=== PATIENT | male | born 1955 | race Caucasian/White ===

== ENCOUNTER 2020-04-17 12:57 | Outpatient (CLI) | payer MEDICARE, SELFPAY ==
[2020-04-17 13:41] LABS: Alanine Aminotransferase 19 U/L (4-50); Albumin Level 4.2 g/dL (3.5-5.1); Alkaline Phosphatase 86 U/L (38-126); Anion Gap 10 mmol/L (8-16); Aspartate Amino Transferase 31 U/L (17-59); Bilirubin,Total 0.6 mg/dL (0.2-1.3); Blood Urea Nitrogen 14 mg/dL (9-20); Calcium 8.7 mg/dL (8.4-10.2); Carbon Dioxide 28 mmol/L (22-30); Chloride 101 mmol/L (98-107); Cholesterol 157 mg/dL (0-200); Estimated Glomerular Filt Rate 51; Glucose 119 mg/dL (75-110); HDL Direct 57 mg/dL; Sodium 139 mmol/L (137-145); Triglycerides 230 mg/dL (<150)
[2020-04-17 13:52] LABS: LDL Cholesterol Direct 54 mg/dL
[2020-04-21 00:13] LABS: Vitamin D 1,25 (OH)2 Total 65 pg/mL (18-72); Vitamin D2 1,25 (OH)2 47 pg/mL; Vitamin D3 1,25 (OH)2 18 pg/mL
== END 2020-04-17 12:58 | disposition home or self-care (01) ==
LOC: ANHLAB 12:58
PROVIDERS: PCP Emergency Medicine; Visit Provider Emergency Medicine
DX: E55.9 Vitamin D deficiency, unspecified (principal); E78.5 Hyperlipidemia, unspecified
CPT/HCPCS: 36415; 80053; 80061; 82652

== ENCOUNTER 2020-11-01 10:49 | Outpatient (CLI) | payer MEDICARE, SELFPAY ==
[2020-11-01 11:45] LABS: Alanine Aminotransferase 16 U/L (4-50); Albumin Level 3.6 g/dL (3.5-5.1); Alkaline Phosphatase 70 U/L (38-126); Anion Gap 6 mmol/L (8-16); Aspartate Amino Transferase 41 U/L (17-59); Bilirubin,Total 0.3 mg/dL (0.2-1.3); Blood Urea Nitrogen 9 mg/dL (9-20); Carbon Dioxide 26 mmol/L (22-30); Chloride 108 mmol/L (98-107); Cholesterol 158 mg/dL (0-200); Estimated Glomerular Filt Rate 51; Glucose 100 mg/dL (75-110); HDL Direct 73 mg/dL; Potassium 3.8 mmol/L (3.4-5.0); Sodium 140 mmol/L (137-145); Triglycerides 199 mg/dL (<150)
[2020-11-01 11:56] LABS: LDL Cholesterol Direct 58 mg/dL
[2020-11-01 12:16] LABS: Prostate Specific Antigen 0.6 ng/mL (< OR = 4.0)
[2020-11-05 12:05] LABS: Vitamin D 1,25 (OH)2 Total 46 pg/mL (18-72); Vitamin D2 1,25 (OH)2 46 pg/mL; Vitamin D3 1,25 (OH)2 <8 pg/mL
== END 2020-11-01 10:50 | disposition home or self-care (01) ==
LOC: ANHLAB 10:52
PROVIDERS: PCP Emergency Medicine; Visit Provider Emergency Medicine
DX: Z12.5 Encounter for screening for malignant neoplasm of prostate (principal); E55.9 Vitamin D deficiency, unspecified; E78.5 Hyperlipidemia, unspecified
CPT/HCPCS: 36415; 80053; 80061; 82652; 84153; G0103

== ENCOUNTER 2020-12-11 17:50 | Emergency (ER) | payer MEDICARE, SELFPAY ==
[2020-12-11] VITALS (15 sets, daily range): BP systolic 104–147; BP diastolic 62–87; PULSE 87–114; RESP 12–27; TEMP 36.1–36.8; O2SAT 95–98
[2020-12-11] MEDS: LIDO 1%/EPINEPHRINE 1:100,000 20 ML VIAL (21:27)
--- NOTE | 2020-12-11 21:49 | ED.HEATRA ---
HPI - Head Injury General Chief complaint: Head Injury Stated complaint: FALL, HEAD INJURY Time Seen by Provider: 12/11/20 19:13 Source: patient Mode of arrival: ambulatory Limitations: no limitations History of Present Illness HPI Narrative: 65-year-old male Patient was walking home from his favorite tavern this evening and stumbled on some broken sidewalk, falling forward as a result He has some minor scrapes on his knees but mainly banged his left forehead on the concrete There was no loss of consciousness and he has no neck pain nor does he have any other neurologic symptoms, his vision is fine, and he was asymptomatic before falling There is very little swelling and no active bleeding right now Patient voices no other concerns Related Data Home Medications Medication Instructions Recorded Confirmed aspirin 81 mg chewable tablet 81 mg PO DAILY 05/13/19 atorvastatin 20 mg tablet 20 mg PO DAILY 05/13/19 Allergies Allergy/AdvReac Type Severity Reaction Status Date / Time prednisone Allergy Unknown Unknown Verified 12/11/20 18:22 Review of Systems Review of Systems: All systems reviewed & are unremarkable except as noted in HPI and below Constitutional: Constitutional: Reports no additional constitutional complaints, Denies chills, Denies fever(s) and Denies headache(s) Eyes: Eyes: Reports no additional eye complaints and Denies change in vision ENT: Denies headache(s) and Denies sore throat Cardiovascular: Cardiovascular: Denies chest pain and Denies dyspnea Respiratory: Respiratory: Denies cough and Denies dyspnea Gastrointestinal: Gastrointestinal: Denies diarrhea, Denies nausea and Denies vomiting Musculoskeletal: Musculoskeletal: Denies deformity, Denies arthralgias, Denies joint swelling and Denies numbness Integumentary/Breasts: Skin/Breast: Denies rash and Denies wounds Neurologic: Denies dizziness, Reports headache(s), Denies focal weakness, Denies numbness and Denies weakness Psychiatric: Psychiatric: Reports no additional psychiatric complaints Endocrine: Endocrine: Reports no additional endocrine complaints Hematologic/Lymphatic: Hematologic/Lymphatic: Reports no additional hematologic/lymphatic complaints Allergic/Immunologic: Allergic/Immunologic: Reports no additional allergic/immunologic complaints [facility] Past Medical History Medical History Cardiomyopathy due to hypertension, with heart failure Depression HLD (hyperlipidemia) Family History Family History Mother Hypertension, Onset Age: 69 Father Family history of malignant neoplasm Social History Social History Smoking status: Former smoker Alcohol intake: current Gender identity (if verbalized by the patient): Male Exam Const: General: cooperative, no acute distress and alert Orientation/consciousness: patient oriented x3 (alert) HENMT: Head: normocephalic, atraumatic, contusion and laceration Ears: external ears normal General nose exam: Epistaxis present Face and sinus: sinuses nontender Other: There is a 3 cm laceration just into the subcu angling through the lateral part of the left eyebrow No other tenderness of any of the facial bones, no epistaxis, no malocclusion Eyes: Conjunctivae: conjunctivae normal Pupils: Equal, round and reactive pupils present EOM: EOMs intact bilaterally Neck: Neck: supple and no JVD Other: Nontender, no pain with range of motion Chest: Chest palpation & inspection: no tenderness Resp: Effort & Inspection: normal respiratory effort and not labored Auscultation: other (BS =) Cardio: Rate: regular rate Rhythm: regular rhythm GI: GI Palp: Yes Soft to palpation and No Tenderness to palpation present (GI) Back/Spine/Pelvis: Other: No thoracic or lumbar vertebral or paraspino
[2020-12-11] MEDS: TETANUS,DIPHTHERIA,AC PERTUSSIS ADULT (0.5 ML) BOOSTRIX IM (22:09)
== END 2020-12-11 22:38 | disposition home or self-care (01) ==
PROVIDERS: Emergency Provider Emergency Medicine; PCP Emergency Medicine
DX: S01.112A Laceration without foreign body of left eyelid and periocular area, initial encounter (principal); W01.0XXA Fall on same level from slipping, tripping and stumbling without subsequent striking against object, initial encounter; Z23 Encounter for immunization; I11.0 Hypertensive heart disease with heart failure; I50.9 Heart failure, unspecified; F32.9 Major depressive disorder, single episode, unspecified; E78.5 Hyperlipidemia, unspecified
CPT/HCPCS: 12013; 90471; 90715; 99283

== ENCOUNTER 2021-06-06 12:58 | Outpatient (CLI) | payer MEDICARE, SELFPAY ==
[2021-06-06 13:34] LABS: Alanine Aminotransferase 16 U/L (4-50); Albumin Level 3.7 g/dL (3.5-5.1); Alkaline Phosphatase 57 U/L (38-126); Anion Gap 6 mmol/L (8-16); Aspartate Amino Transferase 28 U/L (17-59); Bilirubin,Total 0.4 mg/dL (0.2-1.3); Blood Urea Nitrogen 11 mg/dL (9-20); Calcium 8.7 mg/dL (8.4-10.2); Carbon Dioxide 30 mmol/L (22-30); Chloride 100 mmol/L (98-107); Cholesterol 149 mg/dL (0-200); Estimated Glomerular Filt Rate 56; Glucose 94 mg/dL (65-110); HDL Direct 56 mg/dL; Potassium 3.8 mmol/L (3.4-5.0); Sodium 136 mmol/L (137-145); Triglycerides 220 mg/dL (<150)
[2021-06-06 13:45] LABS: LDL Cholesterol Direct 53 mg/dL
== END 2021-06-06 12:59 | disposition home or self-care (01) ==
LOC: ANHLAB 13:02
PROVIDERS: PCP Emergency Medicine; Visit Provider Emergency Medicine
DX: E78.2 Mixed hyperlipidemia (principal)
CPT/HCPCS: 36415; 80053; 80061

== ENCOUNTER 2021-06-28 10:28 | Emergency (ER) | payer MEDICARE, SELFPAY ==
--- NOTE | ~2021-06-28 | CT_ITS ---
EXAMINATION: CT abdomen pelvis w con DATE: 06/28/2021 11:42 INDICATION: Abdominal pain. TECHNIQUE: Computed tomography (CT) of the abdomen and pelvis was performed with 100 mL Omnipaque 350 intravenous contrast. Automated exposure control and iterative reconstruction technique were employe d. The dose-length product was 357.68 mGy-cm. COMPARISON: CT abdomen and pelvis 12/06/2010 FINDINGS: The visualized portions of the lung bases demonstrate minimal atelectasis. No pleural effus ion. The heart size is normal. There are coronary artery calcifications. No pericardial effusion. The liver, spleen, gallbladder, pancreas, adrenal glands are normal. There is cortical thinning of the k idneys. There are multiple dilated loops of small bowel. There are surgical changes of distal bowel, likely an ileoanal anastomosis. A long area of distal small bowel is small in caliber and was small c aliber on the prior CT. The small bowel is dilated proximal to this area. There is wall thickening in volving a large distribution of the mid and distal small bowel. There is mild mesenteric lymphadenopa thy. There is no free intraperitoneal fluid. There are bilateral total hip arthroplasties. There is m ild thoracic and lumbar spondylosis. IMPRESSION: 1. Ileoanal anastomosis with stricture of the distal ileum, small bowel obstruction, and enteritis. 2. Mild mesenteric lymphadenopathy, likely reactive. Reviewed, dictated and finalized at location B. [employer]OR OF QUALITY IMPRESSION: 1. Ileoanal anastomosis with stricture of the distal ileum, small bowel obstruc tion, and enteritis. 2. Mild mesenteric lymphadenopathy, likely reactive.
[2021-06-28 10:34] VITALS: BP 141/85; PULSE 74; RESP 18; TEMP 36.7; O2SAT 98
[2021-06-28 11:05] LABS: Basophils Percent Auto 0.4 % (0.2-1.2); Eosinophils Absolute Auto 0.1 K/mm3 (0-0.3); Eosinophils Percent Auto 1.6 % (0-4.4); Hematocrit 37.7 % (42.0-52.0); Hemoglobin 12.7 g/dL (14.0-18.0); Immature Granulocyte Absolute 0.01 K/mm3 (0.00-0.031); Immature Granulocyte Percent A 0.2 % (0-0.5); Lymphocytes Absolute Auto 0.75 K/mm3 (0.9-3.2); Lymphocytes Percent Auto 16.7 % (18.3-44.2); Mean Corpuscular HGB Conc 33.7 g/dl (32-36); Mean Corpuscular Hemoglobin 32.5 pg (26-34); Mean Corpuscular Volume 96.4 fl (80-100); Mean Platelet Volume 9.1 fl (7.4-10.4); Monocytes Absolute Auto 0.4 K/mm3 (0.1-0.6); Monocytes Percent Auto 9.4 % (2.6-8.5); Neutrophils Absolute Auto 3.2 K/mm3 (1.3-6.7); Neutrophils Percent Auto 71.7 % (45.5-73.1); Platelet Count Result 252 k/mm3 (150-375); Red Blood Count 3.91 M/mm3 (4.6-6.20); Red Cell Distribution Width 12.8 % (11.5-14.5); White Blood Count 4.5 K/mm3 (4.5-10.0)
[2021-06-28 11:16] LABS: Alanine Aminotransferase 13 U/L (4-50); Albumin Level 3.6 g/dL (3.5-5.1); Alkaline Phosphatase 82 U/L (38-126); Anion Gap 8 mmol/L (8-16); Aspartate Amino Transferase 25 U/L (17-59); Bilirubin,Total 0.7 mg/dL (0.2-1.3); Blood Urea Nitrogen 13 mg/dL (9-20); Carbon Dioxide 33 mmol/L (22-30); Chloride 94 mmol/L (98-107); Estimated CRCL calculation 50 ml/min; Estimated Glomerular Filt Rate > 60; Glucose 110 mg/dL (65-110); Lipase 25 U/L (23-300); Potassium 3.5 mmol/L (3.4-5.0); Sodium 135 mmol/L (137-145)
[2021-06-28 11:57] LABS: Add Urine Microscopic? YES; Appearance Urine Clear (Clear); Bilirubin Urine Negative (Negative); Blood Urine Negative (Negative); Color Urine Yellow (Yellow); Glucose Urine UA Negative (Negative); Ketones Urine Negative (Negative); Leukocyte Esterase Ur Negative LEU/UL (Negative); Mucus Urine Rare /lpf; Nitrate Urine Negative (Negative); Protein Urine Negative (Negative); RBC Urine 0-2 /hpf (0-2); Specific Grav Ur 1.019 (1.001-1.035); WBC Urine 0-3 /hpf
--- NOTE | 2021-06-28 12:13 | ED.GENADULT ---
HPI - General Adult General Chief complaint: Abdominal Pain Stated complaint: abd pain Time Seen by Provider: 06/28/21 10:52 Source: patient Mode of arrival: ambulatory Limitations: no limitations History of Present Illness HPI narrative: Patient is a 65-year-old male with history of bowel resection due to ulcerative colitis in 2001 presents with chief complaint of lower abdominal pain that has persistently worsened since June 21. Patient reports that in 2001 the ileostomy was closed from his colon was reattached and had anastomosis. He reports that the procedure was performed by Dr. Reid colorectal surgeon and [facility]. He states that he has not seen a surgeon or GI specialist in 10+ years as he has not had any complications and Dr. Meyer retired. He reports that he has not had issues with his ulcerative colitis since that time. He reports that he saw his primary care 2 to 3 weeks ago and discussed the fact that he has pain to the area of his ileostomy site on occasion and they thought that perhaps he had a hernia. Patient reports that last the pain became more persistent and more intense so he called his primary care to father's office was called and his primary care is on vacation. Patient states that he does not actively have a GI specialist. Patient denies vomiting or diarrhea. He reports that he feels some bloating and gassiness but has not been passing a lot of gas which is abnormal for him. Patient denies fever, chills,Chest pain, shortness of breath. Related Data Home Medications Medication Instructions Recorded Confirmed aspirin 81 mg chewable tablet 81 mg PO DAILY 05/13/19 06/12/21 atorvastatin 20 mg tablet 20 mg PO DAILY 05/13/19 06/12/21 Allergies Allergy/AdvReac Type Severity Reaction Status Date / Time prednisone Allergy Unknown Unknown Verified 06/28/21 10:49 Review of Systems Review of Systems: CONSTITUTIONAL: Denies fever, chills, or sweats. EYES: Denies visual changes, redness, or discharge. ENT: Denies rhinorrhea, congestion, sore throat, or otalgia. CARDIOVASCULAR: Denies chest pain, palpitations, or edema. RESPIRATORY: Denies cough or dyspnea. GASTROINTESTINAL: Reports intermittent abdominal pain, denies nausea, vomiting, or diarrhea. GENITOURINARY: Denies dysuria or hematuria. SKIN: Denies rash or itching. MUSCULOSKELETAL: Denies back pain, joint pain, or myalgia. NEUROLOGIC: Denies headache, numbness, dizziness, or weakness. PSYCHIATRIC: Denies anxiety or depression. [facility] Past Medical History Medical History (Updated 06/28/21 @ 15:21 by Monika Castillo PA-C) Cardiomyopathy due to hypertension, with heart failure Depression HLD (hyperlipidemia) Family History Family History Mother Hypertension, Onset Age: 69 Father Family history of malignant neoplasm Social History Social History Social History: Patient drinks caffeine weekly and exercises 3 days per week. Smoking status: Never smoker Second hand tobacco smoke exposure: No Alcohol intake: current Alcohol use details: Patient drinks alcohol weekly. Substance use: never Substance use type: does not use Additional living arrangements comments: Gender identity (if verbalized by the patient): Male Sexual Orientation (if Verbalized by the Patient): Straight or Heterosexual Exam Narrative: GENERAL: Well-appearing, well-nourished, and in no acute distress. HEAD: Normocephalic, atraumatic. EYES: PERRLA and EOMI. CHEST: Clear to auscultation. No respiratory distress. No wheezes rales or rhonchi HEART: Regular rate and rhythm. ABDOMEN: Vertical abdominal scar to central abdomen. Abdominal scarring to right lower quadrant. soft, tender to right lower quadrant, distention not appreciated, hyperactive bubbling bowel sounds more active in lower quadrants. EXTR
[2021-06-28 13:00] VITALS: BP 141/88; PULSE 86; RESP 16; O2SAT 97
--- NOTE | 2021-06-28 15:22 | PM.CNGS ---
Assessment and Plan Assessment and plan (1) Small bowel anastomotic stricture: Code(s): K91.89 - Other postprocedural complications and disorders of digestive system; K91.30 - Postprocedural intestinal obstruction, unspecified as to partial versus complete Status: Acute Assessment and Plan: CT reviewed, exam benign, still c bowel fxn, will need further workup and tx c CRS at [facility], likely needs endoscopy and poss dilation, pt is stable and can be discharged to f/u as outpt History of Present Illness Consult details Consult date: 06/28/21 Reason for consult: abdominal pain Requesting physician: Ced Ward MD Narrative: The patient is a 65-year-old male presenting with crampy abdominal pain, decreased bowel function. The patient reports he had a subtotal colectomy with ileal anal anastomosis for ulcerative colitis in 2001. Patient reports that he has been generally doing well since surgery. The patient reports for the last few weeks he has had increasing crampy abdominal pain, as well as decreased bowel function. The patient reports that his appetite has also been decreased. The patient denies any nausea or vomiting. Review of Systems Constitutional: Constitutional: Denies anorexia, Denies chills, Denies fatigue, Denies fever(s), Denies increased appetite, Denies lethargy, Denies malaise, Reports poor appetite, Denies weakness, Denies weight gain and Denies weight loss Eyes: Eyes: Reports no additional eye complaints ENT: Reports system reviewed and no additional complaints, except as documented Cardiovascular: Cardiovascular: Reports no additional cardiovascular complaints Respiratory: Respiratory: Reports no additional respiratory complaints Gastrointestinal: Gastrointestinal: Reports as per HPI, Reports abdominal pain, Denies belching, Reports bloating, Reports change in bowel habits, Reports change in stool character, Reports GI cramping, Reports early satiety, Denies dyspepsia, Denies heartburn, Denies fecal incontinence, Denies diarrhea, Reports loose stools, Denies nausea and Denies vomiting Genitourinary: Genitourinary: Reports no additional male genitourinary complaints Musculoskeletal: Musculoskeletal: Reports no additional musculoskeletal complaints Integumentary/Breasts: Skin/Breast: Reports system reviewed and no additional complaints, except as docu Neurologic: Reports system reviewed and no additional complaints, except as documented Psychiatric: Psychiatric: Reports no additional psychiatric complaints Endocrine: Endocrine: Reports no additional endocrine complaints Hematologic/Lymphatic: Hematologic/Lymphatic: Reports no additional hematologic/lymphatic complaints Allergic/Immunologic: Allergic/Immunologic: Reports no additional allergic/immunologic complaints [facility] Past Medical History Medical History Cardiomyopathy due to hypertension, with heart failure Depression HLD (hyperlipidemia) Family History Family History Mother Hypertension, Onset Age: 69 Father Family history of malignant neoplasm Social History Social History Social History: Patient drinks caffeine weekly and exercises 3 days per week. Smoking status: Never smoker Second hand tobacco smoke exposure: No Alcohol intake: current Alcohol use details: Patient drinks alcohol weekly. Substance use: never Substance use type: does not use Additional living arrangements comments: Gender identity (if verbalized by the patient): Male Sexual Orientation (if Verbalized by the Patient): Straight or Heterosexual Comments surgical history - Subtotal colectomy with ileal anal anastomosis in 2001 Meds Home Medications and Allergies Home Medications Medication Instructions Recorded Confirmed Type aspirin
[2021-06-28 15:48] VITALS: BP 128/86; PULSE 80; RESP 14; O2SAT 98
== END 2021-06-28 16:05 | disposition home or self-care (01) ==
PROVIDERS: Emergency Provider Family Medicine; PCP Emergency Medicine
DX: K91.858 Other complications of intestinal pouch (principal); K62.4 Stenosis of anus and rectum; I11.0 Hypertensive heart disease with heart failure; I50.9 Heart failure, unspecified; I43 Cardiomyopathy in diseases classified elsewhere; E78.5 Hyperlipidemia, unspecified; Z90.49 Acquired absence of other specified parts of digestive tract; Z79.82 Long term (current) use of aspirin
CPT/HCPCS: 36415; 74177; 80053; 81001; 83690; 85025; 99284; Q9967

== ENCOUNTER 2021-12-14 10:40 | Outpatient (CLI) | payer MEDICARE, SELFPAY ==
[2021-12-14 11:17] LABS: Alanine Aminotransferase 19 U/L (6-50); Albumin Level 3.3 g/dL (3.5-5.1); Alkaline Phosphatase 45 U/L (38-126); Anion Gap 3 mmol/L (8-16); Aspartate Amino Transferase 28 U/L (17-59); Bilirubin,Total 0.2 mg/dL (0.2-1.3); Blood Urea Nitrogen 10 mg/dL (9-20); Calcium 8.2 mg/dL (8.4-10.2); Carbon Dioxide 31 mmol/L (22-30); Chloride 107 mmol/L (98-107); Cholesterol 92 mg/dL (0-200); Estimated Glomerular Filt Rate > 60; Glucose 99 mg/dL (65-110); HDL Direct 42 mg/dL; Potassium 3.5 mmol/L (3.4-5.0); Sodium 141 mmol/L (137-145); Triglycerides 88 mg/dL (<150)
[2021-12-14 11:27] LABS: LDL Cholesterol Direct 33 mg/dL
== END 2021-12-14 10:41 | disposition home or self-care (01) ==
LOC: ANHLAB 10:45
PROVIDERS: PCP Emergency Medicine; Visit Provider Emergency Medicine
DX: I11.0 Hypertensive heart disease with heart failure (principal); E78.2 Mixed hyperlipidemia; I43 Cardiomyopathy in diseases classified elsewhere
CPT/HCPCS: 36415; 80053; 80061

== ENCOUNTER 2022-03-21 10:39 | Outpatient (CLI) | payer MEDICARE, SELFPAY ==
[2022-03-21 12:02] LABS: Alanine Aminotransferase 15 U/L (6-50); Albumin Level 3.6 g/dL (3.5-5.1); Alkaline Phosphatase 57 U/L (38-126); Anion Gap 8 mmol/L (8-16); Aspartate Amino Transferase 24 U/L (17-59); Bilirubin,Total 0.6 mg/dL (0.2-1.3); Blood Urea Nitrogen 15 mg/dL (9-20); Calcium 8.9 mg/dL (8.4-10.2); Carbon Dioxide 27 mmol/L (22-30); Chloride 104 mmol/L (98-107); Cholesterol 140 mg/dL (0-200); Estimated Glomerular Filt Rate 55; Glucose 104 mg/dL (65-110); HDL Direct 73 mg/dL; Potassium 4.2 mmol/L (3.4-5.0); Sodium 139 mmol/L (137-145); Triglycerides 75 mg/dL (<150)
[2022-03-21 12:14] LABS: LDL Cholesterol Direct 52 mg/dL
[2022-03-21 12:33] LABS: Prostate Specific Antigen 0.4 ng/mL (< OR = 4.0)
== END 2022-03-21 10:40 | disposition home or self-care (01) ==
PROVIDERS: PCP Emergency Medicine; Visit Provider Emergency Medicine
DX: E78.5 Hyperlipidemia, unspecified (principal); Z12.5 Encounter for screening for malignant neoplasm of prostate
CPT/HCPCS: 36415; 80053; 80061; 84153; G0103

== ENCOUNTER 2022-08-21 16:30 | Emergency (ER) | payer MEDICARE, SELFPAY ==
--- NOTE | ~2022-08-21 | XR_ITS ---
EXAMINATION: XR chest 1V portable Exam Date/Time: 08/21/2022 17:35 ICT CUSTOMER SUPPORT OFFICER HISTORY: PICC PLACEMENT VERIFICATION - OK TO USE PICC LINE Comparison: 05/29/2017. RESULT: Lines, tubes, and devices: Right upper extremity PICC, terminating in the distal SVC near the cavoat rial junction. Lungs and pleura: Clear. Cardiomediastinal silhouette: Stable. Other: No acute osseous or upper abdominal finding. IMPRESSION: Right upper extremity PICC, in good position. Reviewed, dictated and finalized at location K. CUSTOMER SUPPORT OFFICER
[2022-08-21 16:39] VITALS: BP 142/84; PULSE 67; RESP 16; TEMP 36.9; O2SAT 98
--- NOTE | 2022-08-21 16:56 | ED.RECABL ---
HPI - Recheck/Abnormal Lab/Rx General Chief Complaint: Recheck/Abnormal Lab/Rx Stated Complaint: low hgb Time Seen by Provider: 08/21/22 16:56 Source: patient Mode of arrival: ambulatory Limitations: no limitations History of Present Illness HPI narrative: Patient is a 66-year-old male with a history of cardiomyopathy, HTN, Crohn's disease, recent colon resection and ileostomy at [facility] in June 2022, presenting to the emergency department for evaluation of low hemoglobin found on laboratory testing at [facility] today. Patient reportedly presented to the infusion center at [facility] to receive his Remicade infusion. He had lab work drawn at the beginning of the infusion that did not result until after he had been discharged which resulted in a low hemoglobin of 6.3. Patient and family were contacted over the phone and told to present to the nearest outside facility for blood transfusion. Patient denies any current complaints. He denies any lightheadedness, dizziness, palpitations, shortness of breath. No syncopal events. He denies any dark or tarry stool from the ileostomy. He is not on any chronic anticoagulation. He denies fever, chills, abdominal pain. Patient's GI physician at [facility] Dr. Daniel Lewis. Related Data Home Medications Medication Instructions Recorded Confirmed aspirin 81 mg chewable tablet 81 mg PO DAILY 05/13/19 06/12/21 atorvastatin 20 mg tablet 20 mg PO DAILY 05/13/19 06/12/21 sulfasalazine 500 mg 0.5 g PO BID 12/25/21 tablet,delayed release Allergies Allergy/AdvReac Type Severity Reaction Status Date / Time prednisone Allergy Unknown Unknown Verified 08/21/22 17:56 Review of Systems Review of Systems: CONSTITUTIONAL: Denies fever, chills, or sweats. ENT: Denies rhinorrhea, congestion, sore throat, or otalgia. CARDIOVASCULAR: Denies chest pain, palpitations, or edema. RESPIRATORY: Denies cough or dyspnea. GASTROINTESTINAL: Denies abdominal pain, nausea, vomiting, or diarrhea. GENITOURINARY: Denies dysuria or hematuria. SKIN: Denies rash or itching. MUSCULOSKELETAL: Denies back pain, joint pain, or myalgia. NEUROLOGIC: Denies headache, numbness, or weakness. [facility] Past Medical History Medical History Cardiomyopathy due to hypertension, with heart failure Depression HLD (hyperlipidemia) Family History Family History Mother Hypertension, Onset Age: 69 Father Family history of malignant neoplasm Social History Social History Social History: Patient drinks caffeine weekly and exercises 3 days per week. Smoking status: Never smoker Second hand tobacco smoke exposure: No Alcohol intake: current Alcohol use details: Patient drinks alcohol weekly. Substance use: never Substance use type: does not use Living arrangements: with family Additional living arrangements comments: Occupation/Education: retired Gender identity (if verbalized by the patient): Male Sexual Orientation (if Verbalized by the Patient): Straight or Heterosexual Exam Narrative: GENERAL: Awake, alert, conversant HEAD: Normocephalic, atraumatic. EYES: PERRLA and EOMI. ENT: Nares clear, no rhinorrhea or epistaxis. Mucous membranes moist. NECK: Supple. CHEST: No respiratory distress, breathing even and non labored HEART: Regular rate, sinus rhythm ABDOMEN:Non distended, non tender; surgical scars are well-healed. Ileostomy in place, stool present. EXTREMITIES: Normal range of motion. No edema. SKIN: Warm, dry, no rash. NEURO:No focal deficits. Alert and oriented x3 Course Vital Signs Vital signs: Vital Signs Temperature 36.9 C 08/21/22 16:39 Pulse Rate 67 08/21/22 16:39 Respiratory Rate 16 08/21/22 16:39 Blood Pressure 142/
[2022-08-21 18:27] LABS: Basophils Percent Auto 0.2 % (0.2-1.2); Eosinophils Absolute Auto 0.1 K/mm3 (0-0.3); Eosinophils Percent Auto 2.7 % (0-4.4); Hematocrit 28.7 % (42.0-52.0); Hemoglobin 9.3 g/dL (14.0-18.0); Immature Granulocyte Absolute 0.03 K/mm3 (0.00-0.031); Immature Granulocyte Percent A 0.7 % (0-0.5); Lymphocytes Absolute Auto 0.86 K/mm3 (0.9-3.2); Lymphocytes Percent Auto 20.8 % (18.3-44.2); Mean Corpuscular HGB Conc 32.4 g/dl (32-36); Mean Corpuscular Hemoglobin 33.6 pg (26-34); Mean Corpuscular Volume 103.6 fl (80-100); Mean Platelet Volume 10.9 fl (7.4-10.4); Monocytes Absolute Auto 0.5 K/mm3 (0.1-0.6); Monocytes Percent Auto 11.4 % (2.6-8.5); Neutrophils Absolute Auto 2.7 K/mm3 (1.3-6.7); Neutrophils Percent Auto 64.2 % (45.5-73.1); Platelet Count Result 156 k/mm3 (150-375); Red Blood Count 2.77 M/mm3 (4.6-6.20); Red Cell Distribution Width 15.4 % (11.5-14.5); White Blood Count 4.1 K/mm3 (4.5-10.0)
[2022-08-21 18:31] LABS: Immature Reticulocyte Fraction 17.9 % (3.0-15.9); Reticulocyte Hemoglobin Conten 37.2 pg (28.2-35.7); Reticulocyte Percent 3.66 % (0.7-4.3)
[2022-08-21 18:36] LABS: Anion Gap 7 mmol/L (8-16); Blood Urea Nitrogen 30 mg/dL (9-20); Calcium 8.9 mg/dL (8.4-10.2); Carbon Dioxide 19 mmol/L (22-30); Chloride 108 mmol/L (98-107); Estimated CRCL calculation 44 ml/min; Estimated Glomerular Filt Rate 51; Glucose 87 mg/dL (65-110); Sodium 134 mmol/L (137-145)
[2022-08-21] MEDS: HEPARIN SODIUM LOCK FLUSH 500 UNITS/5 ML VIAL (18:39)
[2022-08-21 18:40] LABS: Lactate Dehydrogenase 215 U/L (120-246)
[2022-08-21 18:57] LABS: Iron 124 ug/dL (49-181)
[2022-08-21 19:10] VITALS: BP 138/82; PULSE 72; RESP 18; O2SAT 99
[2022-08-21 19:11] LABS: Percent Iron Saturation 38 % (20-50)
[2022-08-27 15:05] LABS: Haptoglobin 188 mg/dL (43-212)
== END 2022-08-21 19:10 | disposition home or self-care (01) ==
PROVIDERS: Physician Assistant; Emergency Provider Emergency Medicine; PCP Emergency Medicine
DX: D64.9 Anemia, unspecified (principal); F32.9 Major depressive disorder, single episode, unspecified; E78.5 Hyperlipidemia, unspecified; I11.0 Hypertensive heart disease with heart failure; I50.9 Heart failure, unspecified; K50.90 Crohn's disease, unspecified, without complications
CPT/HCPCS: 36415; 71045; 80048; 83010; 83540; 83550; 83615; 85025; 85046; 86850; 86900; 86901; 99283; J1642

== ENCOUNTER 2023-11-03 11:35 | Outpatient (CLI) | payer MEDICARE, SELFPAY ==
[2023-11-03 12:37] LABS: Alanine Aminotransferase 11 U/L (6-50); Alkaline Phosphatase 67 U/L (38-126); Anion Gap 6 mmol/L (4-12); Aspartate Amino Transferase 37 U/L (17-59); Bilirubin,Total 0.7 mg/dL (0.2-1.3); Blood Urea Nitrogen 14 mg/dL (9-20); Calcium 9.2 mg/dL (8.4-10.2); Carbon Dioxide 23 mmol/L (22-30); Chloride 108 mmol/L (98-107); Cholesterol 134 mg/dL (0-200); Estimated Glomerular Filt Rate 43; Glucose 108 mg/dL (65-110); HDL Direct 56 mg/dL; Potassium 4.3 mmol/L (3.4-5.0); Sodium 137 mmol/L (137-145); Triglycerides 135 mg/dL (<150)
[2023-11-03 12:48] LABS: LDL Cholesterol Direct 59 mg/dL
[2023-11-03 13:49] LABS: Vitamin D 25 Hydroxy 38.2 ng/mL
== END 2023-11-03 11:36 | disposition home or self-care (01) ==
LOC: ANHLAB 11:37
PROVIDERS: PCP Emergency Medicine; Visit Provider Emergency Medicine
DX: E78.5 Hyperlipidemia, unspecified (principal); E55.9 Vitamin D deficiency, unspecified
CPT/HCPCS: 36415; 80053; 80061; 82306

== ENCOUNTER 2024-03-17 11:03 | Outpatient (CLI) | payer MEDICARE, SELFPAY ==
--- NOTE | ~2024-03-17 | US_ITS ---
EXAMINATION: US renal BI DATE: 03/17/2024 11:17 INDICATION: Chronic kidney disease, stage IIIa. TECHNIQUE: Multiple ultrasound grayscale images of the kidneys were obtained. COMPARISON: CT abdomen and pelvis 06/28/2021 FINDINGS: The right kidney measures 9.7 x 5.0 x 5.2 cm. The left kidney measures 10.7 x 4.7 x 4.6 cm. The kidne ys demonstrate normal parenchymal echogenicity. There is cortical thinning of the kidneys. There is n o hydronephrosis. The bladder is normal. IMPRESSION: 1. Cortical thinning of the kidneys. No hydronephrosis. Reviewed, dictated and finalized at location A.
== END 2024-03-17 11:04 | disposition home or self-care (01) ==
LOC: MICIMG 11:04
PROVIDERS: PCP Emergency Medicine; Visit Provider Internal Medicine Nephrology
DX: N18.31 Chronic kidney disease, stage 3a (principal)
CPT/HCPCS: 76775

== ENCOUNTER 2024-09-09 21:00 | Emergency (ER) | payer MEDICARE, SELFPAY ==
--- NOTE | ~2024-09-09 | CT_ITS ---
CT brain wo con Ordering provider: Shaji Shook MD History: 68 years Male with . Fall etoh . Comparison: December 07, 2010 Technique: CT of the head without contrast. Radiation reduction technique utilized. The dose-length product was 756.67 mGy-cm. FINDINGS: BRAIN PARENCHYMA AND CSF SPACES: Mild leukoaraiosis and diffuse cortical atrophy. Mild atheromatous d isease. Hypodensity in the left frontal lobe which may indicate subacute/chronic infarct. MRI evaluat ion advised. Old lacunar infarct in the right thalamus. No midline shift, mass effect or hemorrhage. The brain parenchyma and CSF spaces are otherwise normal. VISUALIZED PARANASAL SINUSES: Right maxillary sinus disease otherwise, Well aerated. MASTOIDS: Well aerated. BONES: The bones appear intact. SOFT TISSUES: Visualized nasopharynx is normal. Superficial soft tissues are normal. IMPRESSION: No acute intracranial findings. Reviewed, dictated and finalized at location A.
--- NOTE | ~2024-09-09 | CT_ITS ---
CT cervical spine wo con Ordering provider: Shaji Shook MD History: . Fall etoh . Comparison: None. Technique: CT of the cervical spine was performed without contrast. Sagittal and coronal reformatted images were also obtained and reviewed. Automated exposure control and iterative reconstruction rossy hnique were employed. The dose-length product was 335.82 mGy-cm. FINDINGS: VERTEBRAE: No subluxation or acute fracture. The occipital condyles are intact. DISC SPACES: Narrowing of the disc C4-C5, C5-C6 and C6-C7. Multilevel facet joint disease. Multilevel uncovertebral joint osteoarthritic changes. Narrowing of the left foramina at the level of C3-C4 and C4-C5. Narrowing of the right foramen at the level of C5-C6 and C6-C7 PARASPINOUS SOFT TISSUES: Normal. Carotid atherosclerotic changes. IMPRESSION: No acute osseous abnormality cervical spine. Multilevel degenerative disc disease. Reviewed, dictated and finalized at location A.
--- NOTE | ~2024-09-09 | XR_ITS ---
XR chest 1V Ordering provider: Shaji Shook MD History: 68 years Male with . Syncope . Comparison: August 21, 2022 FINDINGS: MEDIASTINUM: The cardiac silhouette is not enlarged. LUNGS: No infiltrates, effusions or pneumothorax. OTHER: No free air under the diaphragm. Degenerative changes of the spine. IMPRESSION: No acute cardiopulmonary pathology. Reviewed, dictated and finalized at location A.
[2024-09-09 21:18] VITALS: BP 115/65; PULSE 66; RESP 17; TEMP 36.7; O2SAT 100
[2024-09-09 21:29] VITALS: O2SAT 98
[2024-09-09 21:54] VITALS: PULSE 61; RESP 15
--- NOTE | 2024-09-09 22:02 | ECG_ITS ---
Test Date: 2024-09-09 22:40:14 Measurements Intervals [place] Rate: 58 P: 64 HI: 217 QRS: -40 QRSD: 90 T: 44 QT: 396 QTc: 391 Interpretive Statements SINUS BRADYCARDIA WITH FIRST DEGREE AV BLOCK INFERIOR MYOCARDIAL INFARCTION , PROBABLY OLD [40+ ms Q WAVE AND/OR ST/T ABNORMALITY IN II/aVF] No previous ECG available for comparison Electronically Signed On 09-10-2024 16:51:56 CDT by Phu Rajan M.D.
[2024-09-09 22:08] VITALS: BP 93/59; RESP 14; O2SAT 99
[2024-09-09 22:12] LABS: Basophils Percent Auto 0.7 % (0.2-1.2); Eosinophils Absolute Auto 0.1 K/mm3 (0-0.3); Hematocrit 30.4 % (42.0-52.0); Hemoglobin 10.4 g/dL (14.0-18.0); Immature Granulocyte Absolute 0.21 K/mm3 (0.00-0.031); Immature Granulocyte Percent A 4.6 % (0-0.5); Lymphocytes Absolute Auto 0.79 K/mm3 (0.9-3.2); Lymphocytes Percent Auto 17.2 % (18.3-44.2); Mean Corpuscular HGB Conc 34.2 g/dl (32-36); Mean Corpuscular Hemoglobin 35.6 pg (26-34); Mean Corpuscular Volume 104.1 fl (80-100); Mean Platelet Volume 9.7 fl (7.4-10.4); Monocytes Absolute Auto 0.5 K/mm3 (0.1-0.6); Monocytes Percent Auto 9.8 % (2.6-8.5); Neutrophils Percent Auto 64.7 % (45.5-73.1); Platelet Count Result 239 k/mm3 (150-375); Red Blood Count 2.92 M/mm3 (4.6-6.20); Red Cell Distribution Width 13.4 % (11.5-14.5); White Blood Count 4.6 K/mm3 (4.5-10.0)
[2024-09-09 22:20] LABS: Ethanol 292 mg/dL (<10)
[2024-09-09 22:22] LABS: Alanine Aminotransferase 19 U/L (6-50); Albumin Level 4.1 g/dL (3.5-5.1); Alkaline Phosphatase 54 U/L (38-126); Anion Gap 15 mmol/L (4-12); Aspartate Amino Transferase 35 U/L (17-59); Bilirubin,Total 0.6 mg/dL (0.2-1.3); Blood Urea Nitrogen 13 mg/dL (9-20); Calcium 8.7 mg/dL (8.4-10.2); Carbon Dioxide 19 mmol/L (22-30); Chloride 104 mmol/L (98-107); Estimated CRCL calculation 45 ml/min; Estimated Glomerular Filt Rate 54; Glucose 83 mg/dL (65-110); Potassium 4.1 mmol/L (3.4-5.0); Sodium 138 mmol/L (137-145)
[2024-09-09 22:33] LABS: Troponin I < 0.012 ng/mL (0.000-0.034)
--- OUTSIDE RECORDS SUMMARY | 2024-09-09 22:49 | XMS_ITS | Encounter Summary ---
Author Organization [facility] Address [address] [place] [address] Phone Care Team Providers Care Front End Mechanic Name Role Phone Nguyễn Sampson MD Primary Care Provide r Fan Lowery MD Unavailable [phone] Chandan Warren MD Unavailable [phone] Encounter Details Date Type Department Care Team (Late st Contact Info) Description 11/03/2023 Orders Only [facility] Scanning, Provider Social History Tobacco Use Types Packs/Day Years Used Date Smoking Tobacco: Never Smokeless Tobacco: Never Alcohol Use Standard Drinks/Week Comments Yes 0 (1 standard drink = 0.6 oz pur e alcohol) Social Connection and Isolat ion Panel [NHANES] Answer Date Recorded In a typical week, how many times do you talk on the phone with family, friends, or neighbors? More than three times a week 10/08/2022 How often do you get togethe r with friends or relatives? More than three times a week 10/08/2022 How often do you attend chur ch or shinto services? Never 10/08/2022 Do you belong to any clubs o r organizations such as caodaism groups, unions, fraternal or athletic groups, or school groups? No 10/08/2022 How often do you attend meet ings of the clubs or organizations you belong to? Never 10/08/2022 Are you , , di vorced, , never , or living with a partner? 10/08/2022 AUDIT-C Answer Date Recorded Q1: How often do you have a drink containing alc ohol? 2-3 times a week 06/05/2023 Q2: How many drinks containi ng alcohol do you have on a typical day when you are drinking? 3 or 4 06/05/2023 Q3: How often do you have si x or more drinks on one occasion? Less than monthly 06/05/2023 Overall Financial Resource Strain (CARDIA) Answe r Date Recorded How hard is it for you to pa y for the very basics like food, housing, medical care, and heating? Not hard at all 10/08/2022 PHQ-2 Answer Date Recorded PHQ-2 Total Score 1 07/04/2022 Hunger Vital Sign Answer Date Recorded Within the past 12 months, y ou worried that your food would run out before you got the money to buy more. Never true 10/09/19 23 Within the past 12 months, t he food you bought just didn't last and you didn't have money to get more. Never true 10/08/2022 PRAPARE - Transportation Answer Date Re corded In the past 12 months, has l ack of transportation kept you from medical appointments or from getting medications? No 09/28 In the past 12 months, has l ack of transportation kept you from meetings, work, or from getting things needed for daily living? No 10/08/2022 Housing Stability Vital Sign Answer Jonathan e Recorded In the last 12 months, was t here a time when you were not able to pay the mortgage or rent on time? No 10/08/2022 In the last 12 months, how many places have you lived? 1 10/08/2022 In the last 12 months, was t here a time when you did not have a steady place to sleep or slept in a prison (including now)? No 10/08/2022 Personal Safety Answer Date Recorded Have you ever been in or are you currently in a harmful physical or emotional relationship or is someone making you feel afraid or unsafe? 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 Gender Identity Not on file Sexual Orientation Not on file documented as of this encounter Plan of Treatment Not on file documented as of this encounter Procedures Procedure Name Priority Date/Time Associated Diagnosis Comments SCAN - LABS 11/03/2023 documented in this encounter Results * SCAN - LABS (11/03/2023) Provider Scanning Final Result documented in this encounter Visit Diagnoses Not on filedocumented in this encounter Care Teams Front End Mechanic Relationship Specialty Start Date End Date Nguyễn Sampson MD [address] [place] [address] PCP - General 09/27/16 Fan Lowery MD [address] [facility] [place] [id number] [place] [address] Consulting Physician Colon and Rectal Surgery 07/08/21 Chandan Warren MD [address] [facility] [place] [id number] [place] [address] Surgeon Colon and Rectal Surgery 07/19/22 documented as of this encounter
--- OUTSIDE RECORDS SUMMARY | 2024-09-09 22:49 | XMS_ITS | Encounter Summary ---
Author Organization [facility] Address [address] [place] [address] Phone Care Team Providers Care Service Parts Driver Name Role Phone Nguyễn Sampson MD Primary Care Provide r Fan Lowery MD Unavailable [phone] Raquel Albrecht [facility] Unavailable [phone] Chandan Warren MD Unavailable [phone] Encounter Details Date Type Department Care Team (Late st Contact Info) Description 12/21/2021 Orders Only [facility] Scanning, Provider Social History Tobacco Use Types Packs/Day Years Used Date Smoking Tobacco: Never Smokeless Tobacco: Never Alcohol Use Standard Drinks/Week Comments Yes 0 (1 standard drink = 0.6 oz pur e alcohol) Social Connection and Isolation Panel [NHANES] A nswer Date Recorded In a typical week, how many times do you talk on the phone with family, friends, or neighbors? Twice a week 07/03/19 How often do you get togethe r with friends or relatives? Twice a week 07/03/2021 How often do you attend chur ch or voodoo services? 1 to 4 times per year 07/03/2021 Do you belong to any clubs o r organizations such as spiritism groups, unions, fraternal or athletic groups, or school groups? No 07/03/2021 How often do you attend meet ings of the clubs or organizations you belong to? Never 07/03/2021 Are you , , di vorced, , never , or living with a partner? 07/03/2021 AUDIT-C Answer Date Recorded Q1: How often do you have a drink containing alcohol? 4 or more times a week 07/05/2021 Q2: How many drinks containi ng alcohol do you have on a typical day when you are drinking? 5 or 6 Q3: How often do you have si x or more drinks on one occasion? Daily or almost daily 07/05/2021 Overall Financial Resource Strain (CARDIA) Answe r Date Recorded How hard is it for you to pa y for the very basics like food, housing, medical care, and heating? Somewhat hard 07/03/2021 Hunger Vital Sign Answer Date Recorded Within the past 12 months, y ou worried that your food would run out before you got the money to buy more. Sometimes true Within the past 12 months, t he food you bought just didn't last and you didn't have money to get more. Sometimes true 09/2021 PRAPARE - Transportation Answer Date Re corded In the past 12 months, has l ack of transportation kept you from medical appointments or from getting medications? No 09/2021 In the past 12 months, has l ack of transportation kept you from meetings, work, or from getting things needed for daily living? 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 Gender Identity Not on file Sexual Orientation Not on file documented as of this encounter Plan of Treatment Not on file documented as of this encounter Procedures Procedure Name Priority Date/Time Associated Diagnosis Comments SCAN - LABS 12/21/2021 documented in this encounter Results * SCAN - LABS (12/21/2021) us Provider Scanning Final Result documented in this encounter Visit Diagnoses Not on filedocumented in this encounter Care Teams Service Parts Driver Relationship Specialty Start Date End Date Nguyễn Sampson MD [address] [place] [address] PCP - General 09/27/16 Fan Lowery MD [phone] [place] [address] Consulting Physician Colon and Rectal Surgery 07/08/21 Raquel Albrecht LCSW [address] [facility] [place] [place] [phone] [place] [address] [facility] Outpatient Director Of Strategic Sourcing 05/24/22 05/24/22 Chandan Warren MD [address] [facility] [phone] [place] [address] Surgeon Colon and Rectal Surgery 07/19/22 documented as of this encounter
--- OUTSIDE RECORDS SUMMARY | 2024-09-09 22:49 | XMS_ITS | Referral Summary ---
Author Organization [facility] [address] Address [address] [place] [address] Care Team Providers Care Pear Picker Name Role Phone Nguyễn Sampson MD Primary Care Provide r Fan Lowery MD Unavailable [phone] Chandan Warren MD Unavailable [phone] Encounters Date Type Department Care Team Description 09/09/2024 9:30 AM CDT Infusion [facility] Infusion Therapy [facility] [address] [place] [address] Crohn's disease of both small and large intestine with intestinal obstruction (HCC) (Primary Dx); Crohn's disease of intestine, unspecified complication (HCC) 08/12/2024 1:15 PM CLOSING AGENT Lab [facility] Endocrinology Metabolism and Lipid [address] [place] [address] Crohn's disease of both small and large intestine with intestinal obstruction (HCC) [K50.812] (Primary Dx); Crohn's disease of intestine, unspecified complication (HCC) [K50.919] 08/12/2024 12:45 PM CLOSING AGENT Infusion [facility] Infusion Therapy [facility] [address] [place] [address] Crohn's disease of both small and large intestine with intestinal obstruction (HCC) (Primary Dx); Crohn's disease of intestine, unspecified complication (HCC) 08/03/2024 1:45 PM CLOSING AGENT Office Visit [facility] Cardiology [address] [place] [address] Nguyễn Meyer MD Coronary artery disease involving kotlik coronary artery of kotlik heart without angina pectoris (Primary Dx); S/P coronary artery stent placement 07/28/2024 Documentation Gastroententerology Yesenia Cai BS 07/26/2024 11:45 AM CLOSING AGENT Office Visit [facility] Gastroenterology [facility] [address] [place] [address] [place] [address] Daniel Lewis MD High risk medications (not anticoagulants) long-term use (Primary Dx); Coronary artery disease involving kotlik coronary artery of kotlik heart without angina pectoris; Crohn's disease of both small and large intestine with intestinal obstruction (HCC) 07/17/2024 8:48 AM CLOSING AGENT - 07/17/2024 11:59 PM CLOSING AGENT Hospital Encounter [facility] [address] [place] [address] Crohn's disease of both small and large intestine with intestinal obstruction (HCC) Discharge Disposition: Discharge to home or self care 07/14/2024 12:45 PM CLOSING AGENT Infusion [facility] Infusion Therapy [address] [place] [address] [address]th [place] [address] [place] [address] Crohn's disease of both small and large intestine with intestinal obstruction (HCC) (Primary Dx); Crohn's disease of intestine, unspecified complication (HCC) 06/14/2024 Orders Only [facility] Gastroenterology [address] [place] [address] [address] [place] [address] [place] [address] Mary Lepe CMA Crohn's disease of both small and large intestine with intestinal obstruction (HCC) (Primary Dx) 06/11/2024 12:53 PM CLOSING AGENT - 06/11/2024 11:59 PM CLOSING AGENT Hospital Encounter [address] [address] Discharge Disposition: Discharge to home or self care 06/11/2024 12:45 PM CLOSING AGENT Infusion [facility] Infusion Therapy [address] [place] [address] [address]th [place] [address] [place] [address] High risk medications (not anticoagulants) long-term use (Primary Dx); Crohn's disease of both small and large intestine with intestinal obstruction (HCC); Crohn's disease of intestine, unspecified complication (HCC) from Last 3 Months Allergies Active Allergy Reactions Criticality Noted Date Comments Ciprofloxacin Itching,Rash,Nausea only Medium 07/03/19 22 Prednisone Other (See comments) Low 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 Other reaction(s): 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 Medications aspirin (ASPIRIN LOW DOSE) 81 mg tablet take 1 Tablet (81MG) by oral route every day 0 04/03/20 12 Active carvedilol (COREG) 6.25 mg tablet take 1 tablet (6.25MG) by oral route 2 times every day with food 0 04/03/20 12 Active omeprazole (PriLOSEC) 40 mg capsule Take 1 capsule (40 mg total) by mouth every morning Active sertraline (ZOLOFT) 50 mg tablet Take 1 tablet (50 mg total) by mouth nightly Active ALPRAZolam (XANAX) 0.5 mg tablet Take 1 tablet (0.5 mg total) by mouth nightly as needed for sleep 07/14/19 18 Active ergocalciferol (VITAMIN D) 50,000 unit capsule Take 1 capsule (50,000 Units total) by mouth once a week Pt takes on Tuesdays02/25/20 22 Active atorvastatin (LIPITOR) 20 mg tablet TAKE 1 TABLET BY MOUTH EVERY DAY 90 tablet 1 06/17/20 22 Active lisinopriL (PRINIVIL,ZESTR IL) 5 mg tablet Take 1 tablet (5 mg total) by mouth every morning 07/18/19 23 Active nitroglycerin (NITROSTAT) 0.[address] 1 tablet (0.4 mg total) under the tongue every 5 (five) minutes as needed 08/26/19 23 Active naloxone (NARCAN) 4 mg/actuation spray,non-aeros ol Administer 1 spray into affected nostril(s) as needed for opioid reversal Call 911. Administer a single spray in one nostril. Repeat every 3 minutes as needed if no or minimal response. 1 each 09/13/19 23 Active Additional Information Patient not taking.Reported on 01/12/2024 inFLIXimab (REMICADE) 100 mg injectionIndica tions:Crohn's disease of both small and large intestine with intestinal obstruction (HCC) Infuse 60 mL (600 mg total) into a venous catheter every 4 (four) weeks 10 mg/kg dose. Site of care: [facility] 07/02/19 24 Active zolpidem (AMBIEN) 10 mg tablet 06/23/20 23 Active zolpidem (AMBIEN) 5 mg tabletIndicatio ns:Sleep-Onset Insomnia Take 1 tablet (5 mg total) by mouth nightly as needed for sleep Hs 1/2 tablet Active azaTHIOprine (IMURAN) 50 mg tabletIndicatio ns:Crohn's disease of intestine, unspecified complication (HCC) TAKE 1/2 TABLET BY MOUTH DAILY 45 tablet 08/06/19 25 Active allopurinoL (ZYLOPRIM) 100 mg tablet TAKE 1 TABLET BY MOUTH DAILY 90 tablet 08/23/19 25 Active allopurinoL (ZYLOPRIM) 100 mg tablet TAKE 1 TABLET (100 MG TOTAL) BY MOUTH DAILY SAFETY LABS REQUIRED EVERY 3 MONTHS FOR REFILLS. LABS COMPLETED WITH INFUSIONS. 90 tablet 07/05/19 25 025 Discontinued Active Problems Problem Noted Date Diagnosed Date History of osteonecrosis 07/24/2023 Hypomagnesemia 07/24/2023 Macrocytosis 07/24/2023 Alcohol abuse 07/23/2023 Assessment & Plan (09/15/2023 12:11 PM CDT): Monitor LFTs closely due to aza and etoh abuse. I told him the best thing would be for him to stop and try MTX but he is unwilling. Arthralgia of wrist 05/06/2023 Assessment & Plan (09/15/2023 12:14 PM CDT): I spoke with rheumatology about his case. I agree with rheum that MTX may be better than aza but his drinking makes this problematic. I told him the best thing would be for him to stop and try MTX but he is unwilling. Colchicine will likely give him diarrhea. Assessment & Plan (05/06/2023 1:57 PM CLOSING AGENT): Neck, hand, hip pain. If IBD related IFX is a good choice. Could consider switching from aza to MTX. Will refer to rheum and do pouchoscopy to assess for active crohn's. Postoperative intra-abdominal abscess 09/25/[address] 07/23/2022 Overview (07/23/2022): Added automatically from request for surgery [id number] Hypokalemia 06/29/2022 Crohn's disease of intestine, unspecified compli cation 06/05/2022 Abdominal pain 05/28/2022 Severe malnutrition 05/21/2022 IBD (inflammatory bowel disease) 05/15/2022 MICHOACANO (iron deficiency anemia) 04/18/2022 Assessment & Plan (09/15/2023 12:13 PM CDT): On PO Fe. Recheck Fe studies with next labs to see if ongoing losses. Crohn's disease of both smal l and large intestine with intestinal obstruction 07/30/2021 Overview (07/26/2024): Year of diagnosis: 1987, initially diagnosed with UC. Year symptoms began: 1981. Phenotype: Stricturing (B2) without perianal disease. Distribution: ileocolonic (L3) without upper GI disease (L4). Extraintestinal manifestations: None. Complications: colectomy 2001, SBO 06/2021, SBO 04/2022, ex lap s/p small bowel bypass c/b anastomotic leak s/p repair and diverting loop ileostomy, readmit for dehydration, discharged on TPN Prior treatments: ASA, prednisone. Current treatment: Prednisone. 07/19/1997 Colonoscopy with left sided colitis Path: Right colon: quiescent colitis Mid colon: focal mild acute colitis with mucosal disarray - giant cells and granulomas associated with destroyed crypts Left colon and recto-sigmoid colon: acute cryptitis and acute crypt abscess formation - giant cells and granulomas associated with destroyed crypts Path: ulceration with active and chronic colitis, with crypt abscess formation, consistent with ulcerative colitis. 07/10/2001 Total proctocolectomy with IPAA and diverting loop ileostomy 09/11/2001 ileostomy takedown 07/02/2021 admit from SBO arising from 10 cm stricture upstream from pouch 07/05/2021 Pouchoscopy. Normal pouch. Inflammatory stricture in prepouch ileum. Path: prepouch ileum patchy chronic active inflammation, erosion, and pyloric gland metaplasia Small intestine, stricture, biopsies: - Small intestinal mucosa with mild chronic inflammation, edema, fibrosis, and crypt architectural distortion - Deep crypt apoptosis; see comment There is focal crypt apoptosis. This finding has been described in patient with autoimmune-associated pouchitis. However, this could be due to ischemia secondary to stricture. Pouch: Small intestinal mucosa with patchy chronic and active inflammation Discharged on prednisone taper 02/09/2022 ustekinumab level 3.6 on q 8 weeks 04/11/2022 Pouchoscopy - Rectal cuff with healthy appearing mucosa seen. - Aphtha in the ileoanal pouch. Biopsied. - A single (solitary) ulcer at the pouch inlet. - Stricture at the pouch inlet. The stenosis was unable to be traversed, but the ileum appeared healthy with no ulcers that were previously described. Mucosal disruption with attempting to traverse so balloon dilation not attempted. Path: Small intestine, pouch, biopsy - Small intestinal mucosa with mild architectural distortion - No viral cytopathic effect, granuloma, or dysplasia is seen 05/09/2022 MRE Of note, patient motion degrades assessment with markedly degraded assessment of pelvic structures secondary to extensive metallic artifact from bilateral hip arthroplasties. Of note, given limitation secondary to metallic artifact, consider future follow-up imaging imaging via CT modality. 1. Surgical changes related to total proctocolectomy with J-pouch creation. 2. Diffusely dilated loops of small bowel with similar appearance of 10 cm length of focal narrowing of the distal small bowel, just proximal to the pouch anastomotic site, with acute inflammation seen at the area of stricturing, consistent with acute on chronic inflammatory process. This appears similar as compared to prior CT abdomen pelvis. 3. No evidence of penetrating disease. 05/15-05/22/2022 admitted with SBO from stricture. 05/15/2022 CT 1. Multiple dilated loops of small bowel upstream of a 10 cm length of narrowing in the distal small bowel proximal to the J-pouch are stable to slightly increased in size compared to the MR from 05/09/2022. Mild inflammation adjacent to the narrowing is compatible with acute on chronic inflammation. 2. Possible additional short segment stricture involving a jejunal loop in the left upper quadrant, not seen on prior examinations. 3. Postoperative changes of a proctocolectomy with J-pouch creation. Treated with IV steroids with some improvement and discharged on prednisone. Readmitted 5 days later for the same. 06/05/2022 Exploratory laparotomy, small-bowel bypass, flexible sigmoidoscopy with clip closure of mucosa Small bowel was dilated from the prepouch stricture but there was no other evidence of Crohn's The stricture started just distal to the old ileostomy closure anastomosis. It was densely fixed into the retroperitoneum and we were unable to mobilize up this loop of bowel out of the retroperitoneum. It was decided that any attempt to mobilize this stricture out of the retroperitoneum might very well compromise the blood supply to the pouch so the decision was made to perform a bypass from the dilated small bowel to the pouch distal to the stricture. During the placement of the stapler, we became concerned that we had created a mucosal tear because we had great difficulty inserting the stapler into the pouch. For this reason, flexible sigmoidoscopy was performed. At a single valve like structure in the pouch, we noticed some mucosal breakage. Multiple endo clips were used to close this defect. Doing well post up until developed severe abdominal pain, found to have anastomotic leak 06/07/2022 Exploratory laparotomy, abdominal washout, repair of anastomotic leak, creation of loop ileostomy High ileostomy output, discharged on IVF 06/14/2022 CT 1. No evidence of anastomotic leak or intra-abdominal abscess. 2. Multiple loops of small bowel with mild wall thickening without dilation, which could be secondary to Crohn's disease versus prior obstruction versus recent surgery. 3. Small bilateral pleural effusions with associated atelectasis. 06/29/2022 - 07/09/2022 Admitted with high ileostomy output, severe electrolyte disturbances Discharged on TPN 08/07/2022 started infliximab 5 mg/kg q 8 weeks Azathioprine held for elevated LFTs 08/27/2022 6TG 109, 6MMP < 478 Plan to hold until off LFTs normalize, likely when off TPN. Recommended cutting back on drinking. 09/05/2022 ileostomy takedown 09/17/2022-09/26 admit for intra-abd abscess/infected hematoma. S/p perc drainage x2 -10/10/2022 admit for SBO, managed conservatively 11/15/2022 6TG 125, 6MMP < 478 on azathioprine 50 mg Increase to 100 mg 01/21/2023 6TG 198, 6MMP 879 on azathioprine 100 mg daily Increase to 150 mg daily 01/21/2023 6TG 163, 6MMP 1578 on azathioprine 150 mg daily decrease azathioprine 75 mg and add allopurinol 100 mg 04/28/2023 6TG 403, 6MMP neg on azathioprine 75 mg and allopurinol 100 mg 06/05/2023 Pouchoscopy Patient is status-post total colectomy with an ileal pouch-anal anastomosis with a small bowel bypass of a severe stricture in the original prepouch ileum. The new prepouch inlet was widely patent. Diffuse inflammation characterized by aphthous ulcerations was found in the new prepouch Ileum Biopsies were taken with a cold forceps for histology. Patchy inflammation characterized by aphthous ulcerations and a single shallow ulceration was found in the ileoanal pouch. Most of the pouch appeared healthy. Biopsies were taken with a cold forceps for histology. The originial soledad-terminal ileum contained the known ulcerated benign-appearing, intrinsic severe stenosis that was non-traversed. There was a rectal cuff beginning at 2 cm from the anal verge, characterized by healthy appearing mucosa. The cuff extended 5 cm in length. Diagnosis: A. Pre pouch ileum biopsy: - Chronic active enteritis with erosion - Negative for granuloma and dysplasia - CMV immunostain is negative for viral inclusions. B. Pouch body biopsy: - Chronic active enteritis with erosion - Negative for granuloma and dysplasia - CMV immunostain is negative for viral inclusions 07/01/2022 infliximab level 1.6 without antibodies Increase to 10 mg/kg q 4 01/06/2024 6TG 1048, 6MMP neg 6TG way too high. Hold aza and allo for 4 weeks, then restart aza 25 and allo. 03/17/2024 6TG 244, 6MMP neg on aza 25 and allo Patient is status-post total colectomy with an ileal pouch-anal anastomosis. The perianal and digital rectal examinations were normal. The pre-pouch ileum contained multiple ulcers. Biopsies were taken with a cold forceps for histology. The ileoanal pouch contained multiple ulcers. Biopsies were taken with a cold forceps for histology. There was a rectal cuff beginning at 2 cm from the anal verge, characterized by healthy appearing mucosa. The cuff extended 3 cm in length. In the pouch body there were three openings. One led to the new prepouch ileum. The prepouch ileum had scattered shallow ulcers and apthae for at least 10 cm. Another opening appeare to lead to the proximal end of the original pouch and the original strictured pouch inlet that could not be traversed. In the pouch body distal to those two openings there was another small opening that appeared to be a fistula. The mucosa in this area was normal, but other areas in the pouch body were ulcerated, including one deep ulcer Path A. Small intestine, pre-pouch ileum, biopsy: - Ileal mucosa with active chronic ileitis (erosions and pyloric gland metaplasia). - Results of cytomegalovirus (CMV) immunostain will be reported in an addendum. B. Small intestine, pouch body, biopsy: - Ileal mucosa with inactive chronic ileitis with crypt distortion. 07/17/2024 MRE Narrowing and inflammation and involving the pre-pouch ileum as well as the presumed bypassed loop of bowel on the right. No definite imaging correlate for the suspected fistula or 3rd opening although there is significant artifact limiting evaluation. Assessment & Plan (07/26/2024 2:38 PM CLOSING AGENT): He has severe Crohn's disease of the pouch complicated by severe stricture in the pre pouch ileum causing obstruction now status post small-bowel bypass. He has endoscopic recurrence on his pouchoscopy and MRE. Fortunately, he feels totally fine. The question is whether another agent would work better than infliximab or is the infliximab is keeping this from being worse I would consider moving onto risankizumab, however there is no guarantee it is going to work as good as infliximab and I am not sure that financially we will be able to get it for him anyway. There is also the concern that if we stop infliximab he may develop antibodies and we will be able to go back to it. That would risk him losing his pouch which she absolutely does not want. Rinvoq is not an option in him because of his history of a STEMI I am going to discuss his case at our multidisciplinary conference. At a minimum I am going to repeat a pouchoscopy in 1 year.. Assessment & Plan (09/15/2023 12:14 PM CDT): Markedly improved after surgery. Pouchoscopy still had a little inflammation with low infliximab level so we increased it. Continue indefinitely. We will repeat a pouchoscopy a year from the last one. Assessment & Plan (05/06/2023 1:55 PM CLOSING AGENT): Normal GI symptoms for a pouch, but elevated CRP and joint symptoms make me concerning he could have some inflammation. -Cont infliximab, aza -schedule pouchoscopy Assessment & Plan (12/23/2022 10:46 AM CDT): He had a difficult postop course but is now doing great. I would like to restart infliximab to prevent recurrence. Will make sure Dr. Warren is ok with it given postop complications. RTC 4 mos. Will discuss pouchoscopy at that time. Assessment & Plan (10/21/2022 2:45 PM CDT): Stricturing crohn's disease of the prepouch ileum s/p small bowel bypass complicated by leak then another abscess after ileostomy takedown. His abdominal pain and obstructive symptoms have resolved and he is having normal BMs, so I think the small bowel bypass was a success. He just needs to finish recovering from the complications. He restarted azathioprine so I want to check his CBC and LFTs today. He has stopped drinking so hopefully LFTs won't be a problem. We will wait to here from Dr. Warren after his next follow up appt to discuss restarting inflximab. He will likely need to be reloaded. I will wait to look at his pouch after he is on stable therapy for at least 6 months. I will see him back in 8 weeks. Assessment & Plan (07/22/2022 2:50 PM CLOSING AGENT): Initially diagnosed with UC s/p IPAA now with stricturing Crohn's with failure of ustekinumab now s/p small bowel bypass c/b anastomotic leak. Now doing better on TPN. I am encouraged that he was having normal BM and tolerating PO after his first surgery, and the small bowel dilation had markedly improved. There was jejunal thickening on his CT but intraop there was no evidence of Crohn's elsewhere. Given his severe disease and he has functionally lost some small bowel with the bypass I recommend we treat this aggressively with combination therapy. I discussed the risks of azathioprine on his liver. We can monitor it but he really needs to cut back on his drinking. Humira monotherapy is an option but there is a risk of not treating this aggressively enough. Will discuss with Dr. Warren when it would be safe to restart immunosuppression. Assessment & Plan (12/10/2021 3:30 PM CDT): Subjective improvement on Stelara. His bloating may indicate the stricture is still problematic. Remains to be seen how much of the stricture is inflammatory vs fibrotic. Will assess with pouchoscopy. He may be prone to SIBO from the upstream dilation and has had some improvement from Flagyl. He should continue a low residue diet and supplement with Boost. If the stricture doesn't respond will discuss different medication vs surgery. I told him if he fails medical therapy he will likely need an EI rather than pouch revision due to the risk of recurrent Crohn's. -Continue Stelara -Check Stelara before 2nd maint dose -Trial of sulfasalazine for joint pains. If no improvement consider MTX v rheum referral -Pouchoscopy Assessment & Plan (07/30/2021 1:56 PM CLOSING AGENT): Originally diagnosed with UC but now with inflammatory stricture in prepouch ileum with biopsies showed chronic inflammation is consistent with Crohn's disease. His pouch itself looked ok so this is more than just pouchitis with some spillover into the prepouch ileum. Interestingly path from one of his previous scopes showed granulomas, but his colectomy specimen was consistent with UC. He has responded well to steroids. I explained he needs a biologic to get him into a steroid free remission. Given his heart history I would like to avoid anti-TNFs if possible. I recommend ustekinumab. I explained the risk of infection but that it is much lower than with steroids. -Start ustekinumab -Continue prednisone taper but stay at 10 mg until Stelara is on board for a week -RTC 4 months. Will likely schedule pouchoscopy at that time. Healthcare maintenance 07/30/2021 Overview (05/06/2023): Immunizations: Influenza - annual Pneumococcus s/p prevnar 20 Zoster - recommend due to age HBV recommend Covid vaccinated Bone health: Already had multiple hip replacements. DEXA 2021 osteopenia CRC screening: s/p total colectomy, no history of dysplasia. Likely annual pouchoscopy until sustained remission. Assessment & Plan (12/23/2022 10:15 AM CDT): Rec shingrix Assessment & Plan (10/21/2022 2:46 PM CDT): prevnar 20 today Assessment & Plan (07/23/2022 5:06 PM CLOSING AGENT): Discuss prevnar 20 next visit Assessment & Plan (12/10/2021 3:32 PM CDT): 4th covid shot Prevnar/pneumovax when finished with covid series Assessment & Plan (07/30/2021 2:00 PM CLOSING AGENT): Next visit: DEXA Check vitamin D HBV surface ab, vaccinate if negative Review pneumococcus vaccines High risk medications (not anticoagulants) long- term use 07/30/2021 Assessment & Plan (07/26/2024 2:22 PM CLOSING AGENT): All immunosuppressants increase the risk of infection so we recommend the patient get all available vaccinations, including the pneumococcal vaccine, covid19 and annual influenza vaccine. We screen for TB and HBV prior to initiating an anti-TNF. We monitor CBC and HFP q 3 months for cytopenias and hepatotoxicity. Patients are monitored for infusion reactions at an infusion center. Anti-TNFs may increase the risk for malignancy. The patient should get all age-appropriate cancer screening and in addition should follow with a boiler helper for skin cancer screening. There is a small risk of heart failure so any new HF symptoms would prompt an evaluation and likely discontinuation of therapy. We monitor metabolites and adjust dosing as needed to optimize efficacy and minimize toxicity. We monitor CBC and HFP q 3 months for cytopenias and hepatotoxicity. Thiopurines increase the risk of malignancy. The patient should get all age-appropriate cancer screening and in addition should follow with a boiler helper for skin cancer screening. There is a small risk of lymphoma that we weigh against the risks of uncontrolled IBD. All immunosuppressants increase the risk of infection so we recommend the patient get all available vaccinations, including the pneumococcal vaccine, covid19 and annual influenza vaccine. Assessment & Plan (09/15/2023 12:08 PM CDT): All immunosuppressants increase the risk of infection so we recommend the patient get all available vaccinations, including the pneumococcal vaccine, covid19 and annual influenza vaccine. We screen for TB and HBV prior to initiating an anti-TNF. We monitor CBC and HFP q 3 months for cytopenias and hepatotoxicity. Patients are monitored for infusion reactions at an infusion center. Anti-TNFs may increase the risk for malignancy. The patient should get all age-appropriate cancer screening and in addition should follow with a boiler helper for skin cancer screening. There is a small risk of heart failure so any new HF symptoms would prompt an evaluation and likely discontinuation of therapy. We monitor metabolites and adjust dosing as needed to optimize efficacy and minimize toxicity. We monitor CBC and HFP q 3 months for cytopenias and hepatotoxicity. Thiopurines increase the risk of malignancy. The patient should get all age-appropriate cancer screening and in addition should follow with a boiler helper for skin cancer screening. There is a small risk of lymphoma that we weigh against the risks of uncontrolled IBD. All immunosuppressants increase the risk of infection so we recommend the patient get all available vaccinations, including the pneumococcal vaccine, covid19 and annual influenza vaccine. Assessment & Plan (05/06/2023 1:58 PM CLOSING AGENT): All immunosuppressants increase the risk of infection so we recommend the patient get all available vaccinations, including the pneumococcal vaccine, covid19 and annual influenza vaccine. We screen for TB and HBV prior to initiating an anti-TNF. We monitor CBC and HFP q 3 months for cytopenias and hepatotoxicity. Patients are monitored for infusion reactions at an infusion center. Anti-TNFs may increase the risk for malignancy. The patient should get all age-appropriate cancer screening and in addition should follow with a boiler helper for skin cancer screening. There is a small risk of heart failure so any new HF symptoms would prompt an evaluation and likely discontinuation of therapy. We monitor metabolites and adjust dosing as needed to optimize efficacy and minimize toxicity. We monitor CBC and HFP q 3 months for cytopenias and hepatotoxicity. Thiopurines increase the risk of malignancy. Assessment & Plan (12/23/2022 10:45 AM CDT): Discussed risk of infection, skin cancer. Follows with derm. Monitor cbc, hfp for toxicity. Monitor thiopurine metabolites to optimize efficacy, minimize toxicity. Assessment & Plan (10/21/2022 2:47 PM CDT): Check CBC for cytopenia, CMP for hepatotoxicity from azathioprine. Counseled him not to restart drinking. Assessment & Plan (07/23/2022 5:05 PM CLOSING AGENT): Planning to start infliximab and azathioprine when cleared from surgical standpoint. Discussed risk of infection, abnormal LFTs, heart failure. Will monitor thiopurine metabolites, CBC and LFTs to monitor toxicity. Assessment & Plan (12/10/2021 3:24 PM CDT): On Stelara. Monitor q 3 month labs for hepatotoxicity. I recommended a 4th covid shot. Assessment & Plan (07/30/2021 2:01 PM CLOSING AGENT): All immunosuppressants carry a theoretical risk of infection, though ustekinumab is among the safest. We recommend the patient get all available vaccinations, including the pneumococcus series, covid19 and annual influenza. Monitor CBC and HFP q 3 months for cytopenias and hepatotoxicity. Pouchitis 07/02/2021 Overview (07/05/2021): Added automatically from request for surgery [id number] CAD (coronary artery disease) 01/30/2017 Assessment & Plan (07/26/2024 2:23 PM CLOSING AGENT): Not a good candidate for rinvoq. Assessment & Plan (09/24/2022 11:08 AM CDT): Home meds held in setting of SBO/NGT. When able, please resume home atorvastatin 20mg daily, and ASA 81mg daily. S/P coronary artery stent placement 01/30/2017 Resolved Problems Problem Noted Date Diagnosed Date Resolved Date Hyponatremia 09/24/2022 09/25/2022 Assessment & Plan (09/24/2022 11:10 AM CDT): Patient hyponatremic, down to 131 today. Was intermittently low during earlier part of hospitalization, and remains asymptomatic - patient starting to eat, would continue to monitor for now Atrial fibrillation with RVR 09/19/2022 09/25/2022 Assessment & Plan (09/24/2022 11:09 AM CDT): New onset afib. Suspect driven by catacholamine surge in setting of SBO and intra-abdominal infections, IR drain placement -Initially spontaneously converted after being started on amiodarone drip, amio was stopped after 24h -However, afib recurred overnight. Again converted after IV push dilt and metoprolol - continue coreg 6.25mg BID -continue tele monitoring -TTE unremarkable -no anticoagulation required - ideally keep K close to 4, Mg close to 2 LUMA (acute kidney injury) 09/19/2022 Assessment & Plan (09/22/2022 8:50 AM CDT): Cr elevated to 2.1. Now improved after additional IVF. Strict I/O, avoid nephrotoxins, CTM BMP SBO (small bowel obstruction) 09/17/2022 09/25/2022 Assessment & Plan (09/23/2022 12:44 PM CDT): Defer mgmt to CRS team. Note IR placed drains x2 into R sided abdominal fluid collections, ? Infected hematomas. Drain culture showing gordon-sensitive E. coli, agree with PO augmentin. Small bowel obstruction 07/02/2021 0407/2022 Immunizations Immunization Administration Dates Next Due Influenza, Quadrivalent, Spl it, Preservative Free, Intramuscular 07/03/2021,04/27/2020,04/26/2020 Influenza, Unspecified 03/29/2022 Pneumococcal Conjugate Pcv20 10/21/2022 Social History Tobacco Use Types Packs/Day Years Used Date Smoking Tobacco: Never Smokeless Tobacco: Never Tobacco Cessation:Counseling Given: Not Answered Alcohol Use Standard Drinks/Week Comments Yes 0 [...] often do you attend chur ch or synagogue services? Never 10/08/2022 Do you belong to any clubs o r organizations such as jehovah's witness groups, unions, fraternal or athletic groups, or school groups? No 10/08/2022 How often do you attend meet ings of the clubs or organizations you belong to? Never 10/08/2022 Are you , , di vorced, , never , or living with a partner? 10/08/2022 AUDIT-C Answer Date Recorded Q1: How often do you have a drink containing alcohol? 4 or more times a week 06/10/2024 Q2: How many drinks containi ng alcohol do you have on a typical day when you are drinking? 5 or 6 Q3: How often do you have si x or more drinks on one occasion? Never 06/10/2024 Overall Financial Resource Strain (CARDIA) Answe r [...] place to sleep or slept in a long-term (including now)? No 10/08/2022 Personal Safety Answer Date Recorded Have you ever been in or are you currently in a harmful physical or emotional relationship or is someone making you feel afraid or unsafe? Denies 06/10/2024 Sex and Gender Information Value Date Recorded Sex Assigned at Not on file Legal Sex Male 7:54 PM CLOSING AGENT Gender Identity Not on file Sexual Orientation Not on file Last Filed Vital Signs Vital Sign Reading Time Taken Comments Blood Pressure 113/67 09/09/2024 9:45 AM CDT Pulse 82 09/09/2024 9:45 AM CDT Temperature 36.4 C (97.5 F) 07/26/2024 11:01 AM CLOSING AGENT Respiratory Rate 16 09/09/2024 9:45 AM CDT Oxygen Saturation 96% 08/03/2024 1:43 PM CLOSING AGENT Inhaled Oxygen Concentration - - Weight 65.8 kg (145 lb 1.6 oz) 08/03/2024 1:43 P M CLOSING AGENT Height 170.2 cm (5' 7 ) 08/03/2024 1:43 PM CLOSING AGENT Body Mass Index 22.73 08/03/2024 1:43 PM CLOSING AGENT Plan of Treatment Not on file Medical Devices Implanted Type Area Supervisor Hydrochloric Area Device Identifier Shelf Expiration Date Model / Serial / Lot Bilateral Hip Replacement Hip Micro Tech Endoscopy Clip Hemostasis Lockado 2.6mm 16mm 235cm Repositionable [id number] - [id number] Implanted:Qty: 4 on 06/05/2022 by Chandan Warren MD at [facility] MICRO TECH ENDOSCOPY 06/11/2023 [id number] / / [id number] Procedures Procedure Name Priority Date/Time Associated Diagnosis Comments CBC WITH AUTO DIFFERENTIAL Routine 08/12/2024 1:00 PM CLOSING AGENT Crohn's disease of both small and large intestine with intestinal obstruction (HCC) Crohn's disease of intestine, unspecified complication (HCC) COMPREHENSIVE METABOLIC PANEL Routine 08/12/2024 1:00 PM CLOSING AGENT Crohn's disease of both small and large intestine with intestinal obstruction (HCC) Crohn's disease of intestine, unspecified complication (HCC) CRP (ACUTE PHASE) Routine 08/12/2024 1:0 0 PM CLOSING AGENT Crohn's disease of both small and large intestine with intestinal obstruction (HCC) Crohn's disease of intestine, unspecified complication (HCC) POCT LIPID PANEL Routine 08/03/2024 2:23 PM CLOSING AGENT Coronary artery disease involving kotlik coronary artery of kotlik heart without angina pectoris MRI ABDOMEN/PELVIS ENTEROGRAPHY W WO CONTRAST Schedule Routine, Read Routine (OP Routine) 07/17/2024 11:59 AM CLOSING AGENT Crohn's disease of both small and large intestine with intestinal obstruction (HCC) T-SPOT.TB Routine 06/11/2024 12:53 PM CLOSING AGENT High risk medications (not anticoagulants) long-term use HEPATITIS PANEL, ACUTE Timed 07/07/2021 11:54 AM CLOSING AGENT from Last 3 Months or Most Recently Relevant to Health Maintenance Results * (ABNORMAL) CBC with auto differential (08/12/2024 1:00 PM CLOSING AGENT) White Blood Count 4.7 3.6 - 11.2 K/uL [facility] RBC 3.03(L) 4.06 - 5.63 M/uL [facility] Hemoglobin 11.0(L) 13.0 - 17.5 g/dL [facility] Hematocrit 32.2(L) 40.7 - 50.3 % [facility] MCV 106.5(H) 80.0 - 97.6 fL [facility] MCH 36.5(H) 26.7 - 33.7 pg [facility] MCHC 34.3 32.7 - 35.5 g/dL [facility] RBC Dist Width 13.5 12.3 - 17.0 % [facility] Platelet Count 196 140 - 440 K/uL [facility] MPV 7.4 6.8 - 10.4 fL [facility] Neutrophils % 75.7(H) 38.7 - 74.5 % [facility] Lymphocyte % 11.1(L) 20.0 - 54.3 % [facility] Monocytes % 9.2 4.3 - 13.5 % [facility] Eosinophils % 3.3 0.0 - 6.0 % [facility] Basophil % 0.7 0.0 - 3.0 % [facility] Absolute Neutrophil 3.5 1.8 - 6.6 K/uL [facility] Absolute Lymphocyte 0.5(L) 0.8 - 3.3 K/uL [facility] Absolute Monocyte 0.4 0.2 - 1.2 K/uL [facility] Absolute Eosinophil 0.2 0.0 - 0.5 K/uL [facility] Absolute Basophil 0.0 0.0 - 0.2 K/uL [facility] Nucleated RBC % 0.4 0.0 - 0.4 /100 WBC [facility] Blood 08/12/2024 1:00 PM CLOSING AGENT 08/12/2024 1:52 PM CLOSING AGENT Daniel Lewis MD LAB BLOOD ORDERABLES Final Result Performing Organization Address City/[facility] Co de Phone Number [facility] * CRP (acute phase) (08/12/2024 1:00 PM CLOSING AGENT) [facility] C-Reactive Protein, Acute <3.0 <5.0 mg/L [facility] Blood 08/12/2024 1:00 PM CLOSING AGENT 08/12/2024 1:52 PM CLOSING AGENT Daniel Lewis MD LAB BLOOD ORDERABLES Final Result Performing Organization Address City/[facility] Co de Phone Number [facility] * (ABNORMAL) Comprehensive metabolic panel (08/12/2024 1:00 PM CLOSING AGENT) Pathologist [facility] Total Protein 7.1 6.1 - 8.4 g/dL [facility] Albumin 3.8 3.5 - 5.2 g/dL [facility] Calcium 8.4(L) 8.6 - 10.3 mg/dL [facility] BUN 17 7 - 23 mg/dL [facility] Total Bilirubin 0.52 0.20 - 1.40 mg/dL [facility] Alk Phos, Total 63 35 - 129 IU/L [facility] AST (SGOT) INTERFERENCE - HEMOLYSIS 11 - 47 IU/L [facility] ALT (SGPT) 17 6 - 53 IU/L [facility] Creatinine 1.60(H) 0.70 - 1.30 mg/dL [facility] Sodium 142 135 - 145 mmol/L [facility] Comment:Repeated and Verifie d Potassium INTERFERENCE - HEMOLYSIS 3.3 - 5.1 mmol/L [facility] Chloride 110(H) 95 - 107 mmol/L [facility] CO2 Content 22 21 - 29 mmol/L [facility] Glucose 94 64 - 99 mg/dL [facility] Comment: NONFASTING GLUCOSE RANGE = 64-199 mg/dL FASTING GLUCOSE 64 - 99 = NORMAL FASTING GLUCOSE 100 - 125 = IMPAIRED FASTING GLUCOSE FASTING GLUCOSE >=126 = PROVISIONAL DIAGNOSIS OF DIABETES eGFR 46.9(L) >60.0 mL/min/1 .73 m2 [facility] Blood 08/12/2024 1:00 PM CLOSING AGENT 08/12/2024 1:52 PM CLOSING AGENT Narrative [facility] - 08/12/2024 2:50 PM CLOSING AGENT Specimen Hemolyzed us Daniel Lewis MD LAB BLOOD ORDERABLES Final Result [facility] * POCT lipid panel (08/03/2024 2:23 PM CLOSING AGENT) Cholesterol, POC 140 mg/dL Comment:GLU = 105 HDL, POC 65 mg/dL Triglycerides, POC 153 mg/dL LDL Cholesterol POC 45 mg/dL Chol/HDL Ratio, POC 0.7 Non-HDL Cholesterol, POC 75 mg/dL Cholesterol Total, POC 140 mg/dL Capillary blood 08/03/2024 2 :23 PM CLOSING AGENT us Nguyễn Meyer MD POINT OF CARE TEST ORDER PUSHPA Final Result * MRI Abdomen Pelvis Enterography W WO Contrast (07/17/2024 11:59 AM CLOSING AGENT) Anatomical Region Laterality Modality Body N/A Magnetic Resonan ce 07/19/2024 10:3 2 AM CLOSING AGENT Impressions 07/19/2024 12:07 PM CLOSING AGENT Narrowing and inflammation and involving the pre-pouch ileum as well as the presumed bypassed loop of bowel on the right. No definite imaging correlate for the suspected fistula or 3rd opening although there is significant artifact limiting evaluation. Dictated by: Luis Palomares MD The radiology attending physician has personally reviewed this study, and had reviewed and/or edited this written report and agrees with it. Electronically signed by: Jaron Danielle M.D. Narrative 07/19/2024 12:07 PM CLOSING AGENT EXAMINATION: 1. MAGNETIC RESONANCE IMAGING OF THE ABDOMEN WITHOUT AND WITH CONTRAST 2. MAGNETIC RESONANCE IMAGING OF THE PELVIS WITHOUT AND WITH CONTRAST HISTORY: Crohn's disease history of total proctocolectomy and J-pouch and multiple small bowel resections TECHNIQUE: Magnetic resonance imaging of the abdomen and pelvis was performed prior to and following the uneventful administration of intravenous Gadolinium contrast. Oral contrast and 1 mg of intravenous glucagon was administered prior to the examination. Protocol: MR Enterography and Fistula Pelvis Contrast: gadoterate 12 mL COMPARISON: CT 10/17/2022 FINDINGS: Exam is limited by artifact and patient motion. Bowel: There remains a presumed bypassed of bowel in the right lower quadrant. Proximal to the prepouch ileum there is narrowing with enhancement (series 53 image 31) There is additional mild tethering to the bladder dome. No definite correlate to the queried fistulous opening. Perianal: Evaluation in the perianal region is limited by motion artifact from hip arthroplasties. However no evidence of displaced disease. Liver: Mild hepatic steatosis. Bile ducts: Normal Focal lesions: None Vasculature: Patent portal and hepatic veins Gallbladder: Normal Pancreas: Normal Spleen: Normal Adrenals: Normal Kidneys: Normal Bladder: Mild tethering of bowel loops to the bladder dome. Other Findings: Evaluation of the pelvis is markedly limited by metal artifact. No ascites or lymphadenopathy. Procedure Note Jaron Danielle MD - 07/19/2024 EXAMINATION: 1. MAGNETIC RESONANCE IMAGING OF THE ABDOMEN WITHOUT AND WITH CONTRAST 2. MAGNETIC RESONANCE IMAGING OF THE PELVIS WITHOUT AND WITH CONTRAST HISTORY: Crohn's disease history of total proctocolectomy and J-pouch and multiple small bowel resections TECHNIQUE: Magnetic resonance imaging of the abdomen and pelvis was performed prior to and following the uneventful administration of intravenous Gadolinium contrast. Oral contrast and 1 mg of intravenous glucagon was administered prior to the examination. Protocol: MR Enterography and Fistula Pelvis Contrast: gadoterate 12 mL COMPARISON: CT 10/17/2022 FINDINGS: Exam is limited by artifact and patient motion. Bowel: There remains a presumed bypassed of bowel in the right lower quadrant. Proximal to the prepouch ileum there is narrowing with enhancement (series 53 image 31) There is additional mild tethering to the bladder dome. No definite correlate to the queried fistulous opening. Perianal: Evaluation in the perianal region is limited by motion artifact from hip arthroplasties. However no evidence of displaced disease. Liver: Mild hepatic steatosis. Bile ducts: Normal Focal lesions: None Vasculature: Patent portal and hepatic veins Gallbladder: Normal Pancreas: Normal Spleen: Normal Adrenals: Normal Kidneys: Normal Bladder: Mild tethering of bowel loops to the bladder dome. Other Findings: Evaluation of the pelvis is markedly limited by metal artifact. No ascites or lymphadenopathy. IMPRESSION: Narrowing and inflammation and involving the pre-pouch ileum as well as the presumed bypassed loop of bowel on the right. No definite imaging correlate for the suspected fistula or 3rd opening although there is significant artifact limiting evaluation. Dictated by: Luis Palomares MD The radiology attending physician has personally reviewed this study, and had reviewed and/or edited this written report and agrees with it. Electronically signed by: Jaron Danielle M.D. us Daniel Lewis MD IM MRI PROCEDURES Final Re sult * T-SPOT.TB Blood (06/11/2024 12:53 PM CLOSING AGENT) T-SPOT.TB Negative See[facility] Comment: Normal Value: Negative A negative test result does not exclude the possibility of exposure to or infection with Mycobacterium tuberculosis (M. tuberculosis). Patients with recent exposure to TB infected individuals exhibiting a negative T-SPOT.TB result should be considered for retesting within 6 weeks or if other relevant clinical symptoms indicate. Results from T-SPOT.TB testing must be used in conjunction with each individual's epidemiological history, current medical status, and results of other diagnostic evaluations. The T-SPOT.TB test is qualitative and results are reported as positive, borderline or negative, given that the test controls perform as expected. In line with the Centers for Disease Control and Prevention's 2010 recommendation to report quantitative measurements alongside the qualitative result, the laboratory provides spot counts for informational purposes only. The T-SPOT.TB test should not be interpreted as a quantitative test. T-SPOT.TB Panel A Spot Count 0 [facility] T-SPOT.TB Panel B Spot Count 0 [facility] T-SPOT.TB Negative Control Passed [facility] T-SPOT.TB Positive Control Passed [facility] Comment: Test Performed at: [facility] [address] [place] [id number] MUNA PERALTA,PHD Blood 06/11/2024 12:5 3 PM CLOSING AGENT 06/11/2024 2:13 PM CLOSING AGENT Daniel Lewis MD LAB MICROBIOLOGY - GENERAL ORDERABLES Final Result [facility] [place] [address] * Hepatitis panel, acute (07/07/2021 11:54 AM CLOSING AGENT) Hep A IgM Nonreactive Nonreactive [facility] Comment: Interpretive Data: If Hep A IgM Ab is reported as Equivocal, a new sample should be drawn in two weeks for testing. Current interpretive data was last revised on 19. Hep B core IgM Nonreactive Nonreactive [facility] Comment: Interpretive Data If HepB Core IgM Ab is reported as Equivocal, a new sample should be drawn in two weeks for testing. Current interpretive data was last revised on 19. Hep C Ab Nonreactive Nonreactive [facility] Comment:Antibodies to HCV no t detected. Does NOT exclude the possibility of recent exposure to HCV. HepBsAg Nonreactive Nonreactive [facility] Blood 07/07/2021 11:5 4 AM CLOSING AGENT 07/07/2021 12:39 PM CLOSING AGENT us Fan Lowery MD LAB MICROBIOLOGY - GENE RAL ORDERABLES Edited Result - Final [facility] [place] [address] from Last 3 Months or Most Recently Relevant to Health [place] [address] [facility] [place] [address] T MEDICARE GOLD [employer] MEDICARE GOLD AETNA MEDICARE GOLD Advance Directives For more information, please contact: [phone] * Full Code (Latest Code Status on File) Date Activated Date Inactivated Comments 06/10/2024 8:28 AM 06/10/2024 3:01 PM * Full Code Date Activated Date Inactivated Comments 06/05/2023 9:06 AM 06/05/2023 2:32 PM * Full Code Date Activated Date Inactivated Comments 10/07/2022 5:19 PM 10/10/2022 6:46 PM * Full Code Date Activated Date Inactivated Comments 09/17/2022 9:35 PM 09/26/2022 7:32 PM * Full Code Date Activated Date Inactivated Comments 09/05/2022 2:03 PM 09/12/2022 8:55 PM Care Teams Pear Picker Relationship Specialty Start Date End Date Nguyễn Sampson MD [address] [place] [address] PCP - General 09/27/16 Fan Lowery MD [address] [facility] [id number] [place] [address] Consulting Physician Colon and Rectal Surgery 07/08/21 Chandan Warren MD [address] [facility] [id number] [place] [address] Surgeon Colon and Rectal Surgery 07/19/22
--- OUTSIDE RECORDS SUMMARY | 2024-09-09 22:49 | XMS_ITS | Clinical Summary ---
Author Organization [facility] [address] Address [address] [place] [address] Care Team Providers Care Rn Imaging Name Role Phone Nguyễn Sampson MD Primary Care Provide r Fan Lowery MD Unavailable [phone] Chandan Warren MD Unavailable [phone] Allergies Active Allergy Reactions Criticality Noted Date [...] diarrhea. Assessment & Plan (05/06/2023 1:57 PM SPIN TABLE OPERATOR): Neck, hand, hip pain. If IBD related IFX is a good choice. Could consider switching from aza to MTX. Will refer to rheum and do pouchoscopy to assess for active crohn's. Postoperative intra-abdominal abscess 09/25/[address] 07/23/2022 Overview (07/23/2022): Added automatically from request for surgery [id number] Hypokalemia 06/29/2022 Crohn's disease of intestine, unspecified [...] evaluation. Assessment & Plan (07/26/2024 2:38 PM SPIN TABLE OPERATOR): He has severe Crohn's disease of the [...] one. Assessment & Plan (05/06/2023 1:55 PM SPIN TABLE OPERATOR): Normal GI symptoms for a pouch, but [...] weeks. Assessment & Plan (07/22/2022 2:50 PM SPIN TABLE OPERATOR): Initially diagnosed with UC s/p IPAA now [...] -Pouchoscopy Assessment & Plan (07/30/2021 1:56 PM SPIN TABLE OPERATOR): Originally diagnosed with UC but now with [...] taper but stay at 10 mg until Nick is on board for a week -RTC [...] today Assessment & Plan (07/23/2022 5:06 PM SPIN TABLE OPERATOR): Discuss prevnar 20 next visit Assessment & Plan (12/10/2021 3:32 PM CDT): 4th covid shot Prevnar/pneumovax when finished with covid series Assessment & Plan (07/30/2021 2:00 PM SPIN TABLE OPERATOR): Next visit: DEXA Check vitamin D HBV surface ab, vaccinate if negative Review pneumococcus vaccines High risk medications (not anticoagulants) long- term use 07/30/2021 Assessment & Plan (07/26/2024 2:22 PM SPIN TABLE OPERATOR): All immunosuppressants increase the risk of infection [...] and in addition should follow with a chief sustainability officer for skin cancer screening. There is a [...] and in addition should follow with a chief sustainability officer for skin cancer screening. There is a [...] and in addition should follow with a chief sustainability officer for skin cancer screening. There is a [...] and in addition should follow with a chief sustainability officer for skin cancer screening. There is a small risk of lymphoma that we weigh against the risks of uncontrolled IBD. All immunosuppressants increase the risk of infection so we recommend the patient get all available vaccinations, including the pneumococcal vaccine, covid19 and annual influenza vaccine. Assessment & Plan (05/06/2023 1:58 PM SPIN TABLE OPERATOR): All immunosuppressants increase the risk of infection [...] and in addition should follow with a chief sustainability officer for skin cancer screening. There is a [...] drinking. Assessment & Plan (07/23/2022 5:05 PM SPIN TABLE OPERATOR): Planning to start infliximab and azathioprine when cleared from surgical standpoint. Discussed risk of infection, abnormal LFTs, heart failure. Will monitor thiopurine metabolites, CBC and LFTs to monitor toxicity. Assessment & Plan (12/10/2021 3:24 PM CDT): On Stelara. Monitor q 3 month labs for hepatotoxicity. I recommended a 4th covid shot. Assessment & Plan (07/30/2021 2:01 PM SPIN TABLE OPERATOR): All immunosuppressants carry a theoretical risk of infection, though ustekinumab is among the safest. We recommend the patient get all available vaccinations, including the pneumococcus series, covid19 and annual influenza. Monitor CBC and HFP q 3 months for cytopenias and hepatotoxicity. Pouchitis 07/02/2021 Overview (07/05/2021): Added automatically from request for surgery [id number] CAD (coronary artery disease) 01/30/2017 Assessment & Plan (07/26/2024 2:23 PM SPIN TABLE OPERATOR): Not a good candidate for rinvoq. Assessment [...] agree with PO augmentin. Small bowel obstruction 07/02/202109/28 Encounters Date Type Department Care Team Description 09/09/2024 9:30 AM CDT Infusion [facility] Infusion Therapy [address] [place] [address] 5th [place] [address] [place] [address] Crohn's disease of both small and large intestine with intestinal obstruction (HCC) (Primary Dx); Crohn's disease of intestine, unspecified complication (HCC) 08/12/2024 1:15 PM SPIN TABLE OPERATOR Lab [facility] Endocrinology Metabolism and Lipid [address] [place] [address] 5th [place] [address] [place] [address] Crohn's disease of both small and large intestine with intestinal obstruction (HCC) [K50.812] (Primary Dx); Crohn's disease of intestine, unspecified complication (HCC) [K50.919] 08/12/2024 12:45 PM SPIN TABLE OPERATOR Infusion [facility] Infusion Therapy [facility] 5th [place] [address] [place] [address] Crohn's disease of both small and large intestine with intestinal obstruction (HCC) (Primary Dx); Crohn's disease of intestine, unspecified complication (HCC) 08/03/2024 1:45 PM SPIN TABLE OPERATOR Office Visit [facility] [address] [place] [address] Nguyễn Meyer MD Coronary artery disease involving enterprise coronary artery of enterprise heart without angina pectoris (Primary Dx); S/P coronary artery stent placement 07/28/2024 Documentation Gastroententerology Yesenia Cai BS 07/26/2024 11:45 AM SPIN TABLE OPERATOR Office Visit [facility] Gastroenterology [facility] 12th [place] [address] [place] [address] Daniel Lewis MD High risk medications (not anticoagulants) long-term use (Primary Dx); Coronary artery disease involving enterprise coronary artery of enterprise heart without angina pectoris; Crohn's disease of both small and large intestine with intestinal obstruction (HCC) 07/17/2024 8:48 AM SPIN TABLE OPERATOR - 07/17/2024 11:59 PM SPIN TABLE OPERATOR Hospital Encounter [facility] [address] [place] [address] Crohn's disease of both small and large intestine with intestinal obstruction (HCC) Discharge Disposition: Discharge to home or self care 07/14/2024 12:45 PM SPIN TABLE OPERATOR Infusion [facility] Infusion Therapy [address] [place] [address] 5th [place] [address] [place] [address] Crohn's disease of both small and large intestine with intestinal obstruction (HCC) (Primary Dx); Crohn's disease of intestine, unspecified complication (HCC) 06/14/2024 Orders Only [facility] Gastroenterology [address] [place] [address] [address]th [place] [address] [place] [address] Mary Lepe CMA Crohn's disease of both small and large intestine with intestinal obstruction (HCC) (Primary Dx) 06/11/2024 12:53 PM SPIN TABLE OPERATOR - 06/11/2024 11:59 PM SPIN TABLE OPERATOR Hospital Encounter [facility] of [address] [address] Discharge Disposition: Discharge to home or self care 06/11/2024 12:45 PM SPIN TABLE OPERATOR Infusion [facility] Infusion Therapy [address] [place] [address] [address]th [place] [address] [place] [address] High risk medications (not anticoagulants) long-term use (Primary Dx); Crohn's disease of both small and large intestine with intestinal obstruction (HCC); Crohn's disease of intestine, unspecified complication (HCC) from Last 3 Months Immunizations Immunization Administration Dates Next Due Influenza, Quadrivalent, Spl it, Preservative Free, Intramuscular 07/03/2021,04/27/2020,04/26/2020 Influenza, Unspecified 03/29/2022 Pneumococcal Conjugate Pcv20 10/21/2022 Surgical History Surgery Date Site/Laterality Comments TOTAL HIP ARTHROPLASTY Bilateral : Bilat. Hip Replacements ULNAR TUNNEL RELEASE Bilateral Bilat ulnar release CARDIAC STENT PLACEMENT 06/30/2010 - 06/29/2011 ROSA X 1 to distal RCA COLOSTOMY COLECTOMY 06/30/2001 - 06/29/2002 Total colectomy with J-Pouch creation for UC/Crohn's UPPER GASTROINTESTINAL ENDOSCOPY EXPLORATORY LAPAROTOMY 06/05/2022 Exploratory laparotomy, small-bowel bypass, flexible sigmoidoscopy with clip closure of mucosa ILEOSTOMY 06/07/2022 Exploratory laparotomy, abdominal washout, repair of anastomotic leak, creation of loop ileostomy POUCHOSCOPY 03/30/2022 - 04/29/2022 IMAGE GUIDED DRAINAGE PERITONEAL OR RETROPERITONEAL FLUID COLLECTION 09/18/2022 N/A ILEOSTOMY CLOSURE 09/05/2022 Ileostomy Closure ABSCESS CATHETER INJECTION 09/26/2022 N/A ABSCESS TUBE EXCHANGE 10/08/2022 N/A ABSCESS CATHETER INJECTION 10/18/2022 N/A ABSCESS CATHETER INJECTION 10/25/2022 N/A COLONOSCOPY Medical History Medical History Date Comments Ulcerative colitis (HCC) Ulcerat thang colitis dxd 2001 with Crohn's diagnosed subsequently History of heavy alcohol consumption 2010 ETOH excess Chronic pain Chr. pain syn. Osteoarthritis Osteoarthritis Shoulder pain R. shoulder pain DE (myocardial infarction) ([facility]) 2010 h/o DE and Vfib cardiac arrest 2010 requiring multiple shocks for rescucitation CHF (congestive heart failure) ([facility]) Crohn's disease ([facility]) Ulcerative colitis dxd 2001 with Crohn's diagnosed subsequently History of ventricular fibrillation h/o DE and Vfib cardiac arrest 2010 requiring multiple shocks for rescucitation Hyperlipidemia Treated with sta tin Anemia GERD (gastroesophageal reflu x disease) Well controlled with daily P PI SBO (small bowel obstruction) ([facility]) 09/17/2022 Hypertension Anxiety Family History Medical History Relation Name Comments Heart attack Brother 2 Myocardial Infa rction; Cause of : Myocardial Infarction Throat cancer Father Throat cancer; Cause of : Throat cancer Coronary artery disease Mother Mindi nary Artery Disease; Anesthesia problems Neg Hx Relation Name Status Comments Brother 1 (Age 57) Brother 2 Father (Age 75) Mother Alive Social History Tobacco Use Types Packs/Day Years [...] often do you attend chur ch or alevism services? Never 10/08/2022 Do you belong to any clubs o r organizations such as christianity groups, unions, fraternal or athletic groups, or [...] place to sleep or slept in a snf (including now)? No 10/08/2022 Personal Safety Answer Date Recorded Have you ever been in or are you currently in a harmful physical or emotional relationship or is someone making you feel afraid or unsafe? Denies 06/10/2024 Sex and Gender Information Value Date Recorded Sex Assigned at Not on file Legal Sex Male 7:54 PM SPIN TABLE OPERATOR Gender Identity Not on file Sexual Orientation Not on file Obstetrics History Last Filed Vital Signs Vital Sign Reading Time Taken Comments Blood Pressure 113/67 09/09/2024 9:45 AM CDT Pulse 82 09/09/2024 9:45 AM CDT Temperature 36.4 C (97.5 F) 07/26/2024 11:01 AM SPIN TABLE OPERATOR Respiratory Rate 16 09/09/2024 9:45 AM CDT Oxygen Saturation 96% 08/03/2024 1:43 PM SPIN TABLE OPERATOR Inhaled Oxygen Concentration - - Weight 65.8 kg (145 lb 1.6 oz) 08/03/2024 1:43 P M SPIN TABLE OPERATOR Height 170.2 cm (5' 7 ) 08/03/2024 1:43 PM SPIN TABLE OPERATOR Body Mass Index 22.73 08/03/2024 1:43 PM SPIN TABLE OPERATOR Plan of Treatment Health Maintenance Due Date Last Done Comments Colon Cancer Screening-Colonoscopy 1955 Prostate Cancer Screening-PSA 1955 DTaP/Tdap/Td Vaccine (1 - Tdap) 10/01/1967 Zoster Vaccine (1 of 2) 10/01/1975 Well Visit 65+ 2021 Depression Screening 06/29/2023 06/29/2022, 05/27/20 22 Influenza Vaccine (#1) 2024 2, 07/03/2021, 04/27/2020, Additional history exists Fall Risk Assessment 06/10/2025 06/10/2024 Hepatitis C Screening Completed 07/07/2021 Hepatitis B Screening Completed 08/07/2022 Pneumococcal vaccine 65+ Completed 10/21/2022 Medical Devices Implanted Type Area Heel Former Device Identifier Shelf Expiration Date Model / Serial / Lot Bilateral Hip Replacement Hip Micro Tech Endoscopy Clip Hemostasis Lockado 2.6mm 16mm 235cm Repositionable [id number] - [id number] Implanted:Qty: 4 on 06/05/2022 by Chandan Warren MD at [facility] MICRO TECH ENDOSCOPY 06/11/2023 [id number] / / [id number] Procedures Procedure Name Priority Date/Time Associated Diagnosis Comments CBC WITH AUTO DIFFERENTIAL Routine 08/12/2024 1:00 PM SPIN TABLE OPERATOR Crohn's disease of both small and large intestine with intestinal obstruction (HCC) Crohn's disease of intestine, unspecified complication (HCC) COMPREHENSIVE METABOLIC PANEL Routine 08/12/2024 1:00 PM SPIN TABLE OPERATOR Crohn's disease of both small and large intestine with intestinal obstruction (HCC) Crohn's disease of intestine, unspecified complication (HCC) CRP (ACUTE PHASE) Routine 08/12/2024 1:0 0 PM SPIN TABLE OPERATOR Crohn's disease of both small and large intestine with intestinal obstruction (HCC) Crohn's disease of intestine, unspecified complication (HCC) POCT LIPID PANEL Routine 08/03/2024 2:23 PM SPIN TABLE OPERATOR Coronary artery disease involving enterprise coronary artery of enterprise heart without angina pectoris MRI ABDOMEN/PELVIS ENTEROGRAPHY W WO CONTRAST Schedule Routine, Read Routine (OP Routine) 07/17/2024 11:59 AM SPIN TABLE OPERATOR Crohn's disease of both small and large intestine with intestinal obstruction (HCC) T-SPOT.TB Routine 06/11/2024 12:53 PM SPIN TABLE OPERATOR High risk medications (not anticoagulants) long-term use HEPATITIS PANEL, ACUTE Timed 07/07/2021 11:54 AM SPIN TABLE OPERATOR from Last 3 Months or Most Recently Relevant to Health Maintenance Results * (ABNORMAL) CBC with auto differential (08/12/2024 1:00 PM SPIN TABLE OPERATOR) White Blood Count 4.7 3.6 - 11.2 [...] [facility] Blood 08/12/2024 1:00 PM SPIN TABLE OPERATOR 08/12/2024 1:52 PM SPIN TABLE OPERATOR us Daniel Lewis MD LAB BLOOD ORDERABLES Final Result [facility] * CRP (acute phase) (08/12/2024 1:00 PM SPIN TABLE OPERATOR) Pathologist [facility] C-Reactive Protein, Acute <3.0 <5.0 mg/L [facility] Blood 08/12/2024 1:00 PM SPIN TABLE OPERATOR 08/12/2024 1:52 PM SPIN TABLE OPERATOR Daniel Lewis MD LAB BLOOD ORDERABLES Final Result [facility] * (ABNORMAL) Comprehensive metabolic panel (08/12/2024 1:00 PM SPIN TABLE OPERATOR) Total Protein 7.1 6.1 - 8.4 g/dL [...] [facility] Blood 08/12/2024 1:00 PM SPIN TABLE OPERATOR 08/12/2024 1:52 PM SPIN TABLE OPERATOR Narrative [facility] - 08/12/2024 2:50 PM SPIN TABLE OPERATOR Specimen Hemolyzed us Daniel Lewis MD LAB BLOOD ORDERABLES Final Result [facility] * POCT lipid panel (08/03/2024 2:23 PM SPIN TABLE OPERATOR) Cholesterol, POC 140 mg/dL Comment:GLU = 105 HDL, POC 65 mg/dL Triglycerides, POC 153 mg/dL LDL Cholesterol POC 45 mg/dL Chol/HDL Ratio, POC 0.7 Non-HDL Cholesterol, POC 75 mg/dL Cholesterol Total, POC 140 mg/dL Capillary blood 08/03/2024 2 :23 PM SPIN TABLE OPERATOR us Nguyễn Meyer MD POINT OF CARE TEST ORDER PUSHPA Final Result * MRI Abdomen Pelvis Enterography W WO Contrast (07/17/2024 11:59 AM SPIN TABLE OPERATOR) Anatomical Region Laterality Modality Body N/A Magnetic Resonan ce 07/19/2024 10:3 2 AM SPIN TABLE OPERATOR Impressions 07/19/2024 12:07 PM SPIN TABLE OPERATOR Narrowing and inflammation and involving the pre-pouch [...] Jaron Danielle M.D. Narrative 07/19/2024 12:07 PM SPIN TABLE OPERATOR EXAMINATION: 1. MAGNETIC RESONANCE IMAGING OF THE [...] it. Electronically signed by: Jaron Danielle M.D. Daniel Lewis MD IMG MRI PROCEDURES Final Re sult * T-SPOT.TB Blood (06/11/2024 12:53 PM SPIN TABLE OPERATOR) T-SPOT.TB Negative SeeBelow Comment: Normal Value: Negative [...] test. T-SPOT.TB Panel A Spot Count 0 [facility] T-SPOT.TB Panel B Spot Count 0 [facility] T-SPOT.TB Negative Control Passed [facility] T-SPOT.TB Positive Control Passed [facility] Comment: Test Performed at: [facility] [address] [place] [id number] MUNA PERALTA,PHD Blood 06/11/2024 12:5 3 PM SPIN TABLE OPERATOR 06/11/2024 2:13 PM SPIN TABLE OPERATOR Daniel Lewis MD LAB MICROBIOLOGY - GENERAL ORDERABLES Final Result [facility] Department [place] [address] * Hepatitis panel, acute (07/07/2021 11:54 AM SPIN TABLE OPERATOR) Hep A IgM Nonreactive Nonreactive [facility] Comment: Interpretive Data: If Hep A IgM Ab is reported as Equivocal, a new sample should be drawn in two weeks for testing. Current interpretive data was last revised on 19. Hep B core IgM Nonreactive Nonreactive [facility] Comment: Interpretive Data If HepB Core IgM Ab is reported as Equivocal, a new sample should be drawn in two weeks for testing. Current interpretive data was last revised on 19. Hep C Ab Nonreactive Nonreactive [facility] Comment:Antibodies to HCV no t detected. Does NOT exclude the possibility of recent exposure to HCV. HepBsAg Nonreactive Nonreactive [facility] Blood 07/07/2021 11:5 4 AM SPIN TABLE OPERATOR 07/07/2021 12:39 PM SPIN TABLE OPERATOR us Fan Lowery MD LAB MICROBIOLOGY - GENE RAL ORDERABLES Edited Result - Final [facility] Department [place] [address] from Last 3 Months or Most Recently Relevant to [place] [address] [place] [place] [address] AET MEDICARE GOLD Member Subscriber Plan / Payer (Ef fective 2021-Present) Name:Fer Sow Relation to Subscriber:Self Name:Fer Sow Payer ID:[id number] (NAIC) Type:AETNA MEDICARE Address: [facility] [id number] [place] [phone] [place] [address] Member Subscriber Plan / Payer (Ef fective 2021-Present) Name:Fer Sow Relation to Subscriber:Self Name:Fer Sow Payer ID:[id number] (NAIC) Type:AETNA MEDICARE Address: [facility] [id number] [place] [id number] [place] [address] T MEDICARE GOLD Member Subscriber Plan / Payer (Ef fective 2021-Present) Name:Fer Sow Relation to Subscriber:Self Name:Fer Sow Payer ID:[id number] (NAIC) Type:AETNA MEDICARE Address: [facility] [id number] [place] [phone] Advance Directives For more information, please contact: [phone] * Full Code (Latest Code Status on [...] 2:03 PM 09/12/2022 8:55 PM Care Teams Rn Imaging Relationship Specialty Start Date End Date Nguyễn Sampson MD [address] [facility] [place] [address] PCP - General 09/27/16 Fan Lowery MD [address] [facility] [id number] [place] [address] Consulting Physician Colon and Rectal Surgery 07/08/21 Chandan Warren MD [address] [facility] [id number] [place] [address] Surgeon Colon and Rectal Surgery 07/19/22
--- OUTSIDE RECORDS SUMMARY | 2024-09-09 22:49 | XMS_ITS | Clinical Summary ---
Author Organization 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 Gender Identity Not on file Sexual Orientation Not on file Plan of Treatment Health Maintenance Due Date Last Done Comments Colorectal Cancer Screening Colonoscopy (10 Years) 1955 Hepatitis C 1974 DTaP, Tdap and Td Vaccines ( 1 - Tdap) 10/01/1975 Zoster Vaccines (1 of 2) 2006 Annual Medicare Wellness Visit 2021 Pneumococcal Vaccine: 65+ Ye ars (1 of 1 - PCV) 2021 COVID-19 Vaccine ( - 2023-2 5 season) 2024 Influenza Adult (#1) 2024 RSV Immunization or 60+ Years (1 - 1-dose 75+ series) 10/01/2031 Meningococcal B Vaccine Aged Out No l onger eligible based on patient's age to complete this topic Meningococcal Vaccine Aged Out No trevon paula eligible based on patient's age to complete this topic RSV Immunizations Under 20 Months Aged Out No longer eligible based on patient's age to complete this topic Insurance [employer]
--- OUTSIDE RECORDS SUMMARY | 2024-09-09 22:49 | XMS_ITS | Encounter Summary ---
Author Organization [facility], [facility] Address [address] [place] [address] Phone Care Team Providers Care Disc Pad Grinder Name Role Phone Nguyễn Sampson MD Primary Care Provide r Fan Lowery MD Unavailable [phone] Chandan Warren MD Unavailable [phone] Reason for Visit * Episode Based Medications (Routine) - Authorized Specialty Diagnoses / Procedures Referred By Contac t Referred To Contact Diagnoses Crohn's disease of both small and large intestine with intestinal obstruction (HCC) Crohn's disease of intestine, unspecified complication (HCC) Daniel Lewis MD [address] [place] [address] Phone: tel: fax: [facility] Infusion Therapy [facility] 5th [place] [address] [place] [address] Phone: tel: fax: Referral ID Status Reason Start Date Expiration Date V isits Requested Visits Authorized [id number] Authorized 06/14/2022 05/24/2025 99 99 Encounter Details Date Type Department Care Team (Late st Contact Info) Description 09/09/2024 9:30 AM CDT Infusion [facility] Infusion Therapy [facility] 5th [place] [address] [place] [address] Crohn's disease of both small and large intestine with intestinal obstruction (HCC) (Primary Dx); Crohn's disease of intestine, unspecified complication (HCC) Social History Tobacco Use Types Packs/Day Years [...] often do you attend chur ch or confucianism services? Never 10/08/2022 Do you belong to any clubs o r organizations such as adventist groups, unions, fraternal or athletic groups, or [...] place to sleep or slept in a jail (including now)? No 10/08/2022 Personal Safety Answer Date Recorded Have you ever been in or are you currently in a harmful physical or emotional relationship or is someone making you feel afraid or unsafe? 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 Pt scheduled for f/u appt. Pt VSS and was without s/s of adverse reaction prior to discharge. documented in this encounter Plan of Treatment Not on file documented as of this encounter Visit Diagnoses Diagnosis Crohn's disease of both small and large intestine with intestinal obstruction (HCC)- Primary Crohn's disease of intestine, unspecified complication (HCC) documented in this encounter Administered Medications Inactive Administered Medications - up to 3 most recent administrations Medication Order MAR Action Action Date Dose Rate Site acetaminophen (TYLENOL) tablet 650 mg 650 mg, oral, Once, On Itzel 09/09/24 at 1015, For 1 dose, Give 30 minutes prior to infusion for infusion reaction prophylaxis.Indications:Crohn's disease of both small and large intestine with intestinal obstruction (HCC),Crohn's disease of intestine, unspecified complication (HCC) Given 09/09/2024 9:45 AM CDT 650 mg diphenhydrAMINE (BENADRYL) tab/cap 25 mg 25 mg, oral, Once, On Itzel 09/09/24 at 1015, For 1 dose, Give 30 minutes prior to infusion for infusion reaction prophylaxis.Indications:Crohn's disease of both small and large intestine with intestinal obstruction (HCC),Crohn's disease of intestine, unspecified complication (HCC) Given 09/09/2024 9:45 AM CDT 25 mg inFLIXimab (REMICADE) 600 mg in sodium chloride 0.9% 250 mL IVPB 600 mg, intravenous, Once, On Itzel 09/09/24 at 1045, For 1 dose, MAINTENANCE DOSE: 10 mg/kg Q4 weeks (dose and frequency increase d/t recent low IFX level) For 250 ml lnititate therapy at 10mI/hour x 15 minutes then Increase to 20ml/hour x 15 minutes then Increase to 40ml/hour x 15 minutes then Increase to 80ml/hour x 15 minutes then Increase to 150ml/hour x 30 minutes then Increase to 250ml/hour x 30 minutes until infusion is complete, FOR REACTIONS-STOP INFUSION. For 500 ml: Initiate therapy at 20 ml/hour x 15 minutes then Increase to 40 ml/hour x 15 minutes then Increase to 80 ml/hour x 15 minutes the Increase to 160 ml/hours x 15 minutes then Increase to 300 ml/hour x 30 minutes then Increase to 500 ml/hour until infusion is completed. FOR REACTION-STOP INFUSION Use 1.2 micron filter or less, low-sorbing, low protein binding.Indications:Crohn's disease of both small and large intestine with intestinal obstruction (HCC),Crohn's disease of intestine, unspecified complication (HCC) New Bag 09/09/2024 9:55 AM CDT 600 mg documented in this encounter Care Teams Disc Pad Grinder Relationship Specialty Start Date End Date Nguyễn Sampson MD [address] [place] [address] PCP - General 09/27/16 Fan Lowery MD [address] [facility] [phone] [place] [address] Consulting Physician Colon and Rectal Surgery 07/08/21 Chandan Warren MD [address] [facility] [phone] [place] [address] Surgeon Colon and Rectal Surgery 07/19/22 documented as of this encounter
--- OUTSIDE RECORDS SUMMARY | 2024-09-09 22:49 | XMS_ITS | Continuity of Care Document ---
Author Organization [facility] Address [address] [facility] [address] [place] [address] Insurance Providers Payer Plan Claims Address Claims Phone Policy Number Group Number Relation Employer Guarantor Name Guarantor Guarantor Address Guarantor Phone [employer] [address], [place] [address] tel:[phone] [id number] [employer] [address] [place] [id number] [employer] [address], [place] [address] tel:[phone] [employer] [address] [place] [id number] [employer] [address], [place] [address] tel:[phone] [employer] [place] [address] [place] [address] Problems Condition ICD9 code ICD10 code SNOMED code Start Date End Date S tatus Crohn's disease, unspecified, with unspecified complications K50.919 Working Crohn's disease of both small and large intestine with intestinal obstruction K50.812 Wo rking Pain in unspecified joint M25.50 Working Pain in right hip M25.551 Workin g Mixed hyperlipidemia E78.2 Wor min Results No Results Allergies, adverse reactions, alerts No known allergies and adverse reactions Medications No administered medications reported Vital Signs No vital signs reported Social History No smoking Hx information available
--- NOTE | 2024-09-09 23:08 | PC.NURSE ---
pt attempts to urinate in urinal with no success. educated patient to use call light with any urge to urinate.
--- NOTE | 2024-09-09 23:40 | ED_ITS ---
HPI - General Adult General Chief complaint: Syncope Stated complaint: syncope/fall Time Seen by Provider: 09/09/24 21:02 History of Present Illness HPI narrative: This is a 68-year-old male history of alcoholism and CHF presenting after syncopal event. Patient was at the [facility] drinking for out most of the day. He then had a fall and was brought to the emergency department for evaluation. At this time the patient is A&O x3 with no physical complaints. He does not remember why he fell. He smells of alcohol. Related Data Home Medications ?Medication ?Instructions ?Recorded ?Confirmed ?Last Taken ?Type aspirin 81 mg chewable tablet 81 mg PO DAILY 05/13/19 07/15/24 Unknown History allopurinol 100 mg tablet 100 mg PO DAILY 05/12/23 07/15/24 Unknown History azathioprine 50 mg tablet 50 mg PO DAILY 03/11/24 07/15/24 Unknown History Allergies Allergy/AdvReac Type Severity Reaction Status Date / Time prednisone Allergy Unknown Unknown Verified 09/09/24 21:30 [facility] Past Medical History Medical History Atherosclerotic heart disease Arthralgia Yeast infection of the skin Urticaria Ulcerative colitis, unspecified, without complications Skin lesion Rosacea, acne Rib pain on left side Rash and nonspecific skin eruption Primary generalized (osteo)arthritis Major depressive disorder, single episode, unspecified Gastro-esophageal reflux disease without esophagitis Essential hypertension Dermatitis Actinic keratosis Abnormal LFTs (liver function tests) Depression Cardiomyopathy due to hypertension, with heart failure HLD (hyperlipidemia) Family History Family History Mother Hypertension, Onset Age: 69 Father Family history of malignant neoplasm Social History Social History Social History: Patient drinks caffeine weekly and exercises 3 days per week. Smoking status: Never smoker Second hand tobacco smoke exposure: No Alcohol intake: current Alcohol use details: Patient drinks alcohol weekly. Substance use: never Substance use type: does not use Do You Feel Safe in your Home?: Yes Lack of Transportation: No Lack of Food: Never True Current Housing: I Have Housing Concerned About Future Housing: No Difficulty Paying Gas/Electric Bills: No Difficulty Paying for Meds: No Currently Unemployed: Decline to Answer Education: High School Diploma/GED Difficulty w/ Childcare or Family Care: No Living arrangements: with family Additional living arrangements comments: Occupation/Education: retired Gender identity (if verbalized by the patient): Male Sexual Orientation (if Verbalized by the Patient): Straight or Heterosexual Exam 2 Narrative: APPEARANCE: No apparent distress. Head: Small enrique to the over the orbital rim on the left not requiring repair EYES: EOMI, PERRLA NOSE: Atraumatic NECK: Trachea midline RESPIRATORY: No increased rate of breathing CTAB CARDIOVASCULAR: RRR, no peripheral edema ABDOMINAL: Non-distended soft nontender no guarding rebound MUSCULOSKELETAl: Head to toe trauma exam performed with no areas of tenderness or deformity NEURO: Alert. Moving 4/4 extremities SKIN:: Warm, dry. Normal color PSYCHIATRIC: Normal affect Course Vital Signs Vital signs: Vital Signs Temperature 98.1 F 09/09/24 21:18 Pulse Rate 66 09/09/24 21:18 Respiratory Rate 17 09/09/24 21:18 Blood Pressure 115/65 09/09/24 21:18 Pulse Oximetry 100 09/09/24 21:18 Oxygen Delivery Room Air 09/09/24 21:18 Temperature 98.1 F 09/09/24 21:18 Pulse Rate 61 09/09/24 21:54 Respiratory Rate 14 09/09/24 22:08 Blood Pressure 93/59 L 09/09/24 22:08 Pulse Oximetry 99 09/09/24 22:08 Oxygen Delivery Room Air 09/09/24 21:29 Medical Decision Making [facility] Narrative Medical decision making narrative: -Course: 68-year-old male presenting after a syncopal event. Patient is highly intoxicated. Screening lab work and chest x-ray were obtained. patient is not in acute congestive heart failure exacerbation. Laboratory studies within normal limits. CT head and C-spine were negative for acute injury. EKG without ischemic changes/dysrhythmia. Patient was monitored until he could walk with a steady gait. He will be discharged with custody of his family. -DDX includes but is not limited to: Alcohol syncope, comprehension his syncope he cardiogenic syncope, dysrhythmia Independent EKG interpretation: Rhythm [sinus], Rate [58], [place] -[normal], RI -[normal], QRS [narrow], QTC [normal], T waves -[negative for concerning inversions], ST Segments - [Negative for concerning elevations] Final interpretations: [Normal Sinus Rhythm] Vital Signs Vital Signs: Vital Signs Temperature 98.1 F 09/09/24 21:18 Pulse Rate 66 09/09/24 21:18 Respiratory Rate 17 09/09/24 21:18 Blood Pressure 115/65 09/09/24 21:18 Pulse Oximetry 100 09/09/24 21:18 Oxygen Delivery Room Air 09/09/24 21:18 Temperature 98.1 F 09/09/24 21:18 Pulse Rate 61 09/09/24 21:54 Respiratory Rate 14 09/09/24 22:08 Blood Pressure 93/59 L 09/09/24 22:08 Pulse Oximetry 99 09/09/24 22:08 Oxygen Delivery Room Air 09/09/24 21:29 Lab Data 09/09/24 22:06 09/09/24 22:06 Labs: Lab Results 09/09/24 Range/Units 22:06 WBC 4.6 (4.5-10.0) K/mm3 RBC 2.92 L (4.6-6.20) M/mm3 Hgb 10.4 L (14.0-18.0) g/dL Hct 30.4 L (42.0-52.0) % MCV 104.1 H (80-100) fl MCH 35.6 H (26-34) pg MCHC 34.2 (32-36) g/dl RDW 13.4 (11.5-14.5) % Plt Count 239 D (150-375) k/mm3 MPV 9.7 (7.4-10.4) fl Immature Gran % (Auto) 4.6 H (0-0.5) % Neut % (Auto) 64.7 (45.5-73.1) % Lymph % (Auto) 17.2 L (18.3-44.2) % Stearns % (Auto) 9.8 H (2.6-8.5) % Eos % (Auto) 3.0 (0-4.4) % Baso % (Auto) 0.7 (0.2-1.2) % Lymph # (Auto) 0.79 L (0.9-3.2) K/mm3 Stearns # (Auto) 0.5 (0.1-0.6) K/mm3 Eos # (Auto) 0.1 (0-0.3) K/mm3 Baso # (Auto) 0.0 (0.0-0.1) K/mm3 Abs Immat Gran (auto) 0.21 H (0.00-0.031) K/mm3 Absolute Neuts (auto) 3.0 (1.3-6.7) K/mm3 Absolute Nucleated RBC 0.000 (0.0-0.012) K/mm3 Nucleated RBC % 0.0 (0.0-0.2) % Sodium 138 (137-145) mmol/L Potassium 4.1 (3.4-5.0) mmol/L Chloride 104 (98-107) mmol/L Carbon Dioxide 19 L (22-30) mmol/L Anion Gap 15 H (4-12) mmol/L BUN 13 (9-20) mg/dL Creatinine 1.33 H (0.7-1.3) mg/dL Estim Creat Clear Calc 45 ml/min Estimated GFR 54 L (59 - ) Glucose 83 (65-110) mg/dL Calcium 8.7 (8.4-10.2) mg/dL Total Bilirubin 0.6 (0.2-1.3) mg/dL AST 35 (17-59) U/L ALT 19 (6-50) U/L Alkaline Phosphatase 54 (38-126) U/L Troponin I < 0.012 (0.000-0.034) ng/mL Total Protein 7.0 (6.3-8.2) g/dL Albumin 4.1 (3.5-5.1) g/dL Ethyl Alcohol 292 (<10) mg/dL Discharge Plan Discharge Clinical Impression: ETOHism Patient Disposition: Home, Self-Care Condition: Stable Instructions: Antibiotic Form, Alcohol Use Disorder (ED) Additional Instructions: Please drink responsibly. Follow-up with your primary care physician. Return if you develop any new or worsening symptoms. Patient Language: Congolese Prescriptions: No Action allopurinol 100 mg tablet 100 mg PO DAILY azathioprine 50 mg tablet 50 mg PO DAILY aspirin 81 mg tablet,chewable 81 mg PO DAILY omeprazole 40 mg capsule,delayed release(DR/EC) See Rx Instructions .ROUTE .COMPLEX Qty: 90 2RF Dose Instruction: TAKE 1 CAPSULE BY MOUTH EVERY DAY Rx Instructions: TAKE 1 CAPSULE BY MOUTH EVERY DAY atorvastatin 20 mg tablet 20 mg PO DAILY Qty: 100 2RF lisinopril 5 mg tablet See Rx Instructions .ROUTE .COMPLEX Qty: 100 2RF Dose Instruction: TAKE 1 TABLET BY MOUTH EVERY DAY Rx Instructions: TAKE 1 TABLET BY MOUTH EVERY DAY ergocalciferol (vitamin D2) 1,250 mcg (50,000 unit) capsule See Rx Instructions .ROUTE .COMPLEX Qty: 12 2RF Dose Instruction: TAKE 1 CAPSULE BY MOUTH ONE TIME PER WEEK Rx Instructions: TAKE 1 CAPSULE BY MOUTH ONE TIME PER WEEK sertraline 50 mg tablet See Rx Instructions .ROUTE .COMPLEX Qty: 90 2RF Dose Instruction: TAKE 1 TABLET BY MOUTH EVERY DAY Rx Instructions: TAKE 1 TABLET BY MOUTH EVERY DAY alprazolam [Xanax] 0.5 mg tablet 0.5 mg PO BID PRN (Reason: anxiety) Qty: 60 2RF carvedilol 6.25 mg tablet See Rx Instructions .ROUTE .COMPLEX Qty: 180 2RF Dose Instruction: TAKE 1 TABLET BY MOUTH TWICE A DAY Rx Instructions: TAKE 1 TABLET BY MOUTH TWICE A DAY nitroglycerin 0.4 mg tablet, sublingual See Rx Instructions .ROUTE .COMPLEX Qty: 25 3RF Dose Instruction: PLACE 1 TABLET SUBLINGUAL ROUTE AT THE FIRST SIGN OF ATTACK (CHEST PAIN) Rx Instructions: PLACE 1 TABLET SUBLINGUAL ROUTE AT THE FIRST SIGN OF ATTACK (CHEST PAIN) zolpidem 10 mg tablet 10 mg PO QHS PRN (Reason: insomnia) Qty: 30 1RF Follow-up/Referrals: Nguyễn Sampson MD [Primary Care Provider] -
== END 2024-09-10 00:14 | disposition home or self-care (01) ==
PROVIDERS: Emergency Provider Emergency Medicine; PCP Emergency Medicine
DX: F10.20 Alcohol dependence, uncomplicated (principal); Y90.8 Blood alcohol level of 240 mg/100 ml or more; I50.9 Heart failure, unspecified; I11.0 Hypertensive heart disease with heart failure; I43 Cardiomyopathy in diseases classified elsewhere; I25.10 Atherosclerotic heart disease of native coronary artery without angina pectoris; E78.5 Hyperlipidemia, unspecified; M19.90 Unspecified osteoarthritis, unspecified site; K51.90 Ulcerative colitis, unspecified, without complications; F32.A Depression, unspecified; Z79.82 Long term (current) use of aspirin; Z79.899 Other long term (current) drug therapy; I44.0 Atrioventricular block, first degree; R00.1 Bradycardia, unspecified; R94.31 Abnormal electrocardiogram [ECG] [EKG]
CPT/HCPCS: 36415; 70450; 71045; 72125; 80053; 82077; 84484; 85025; 93005; 99284

== ENCOUNTER 2024-10-13 19:46 | Emergency (ER) | payer MEDICARE, SELFPAY ==
--- NOTE | ~2024-10-13 | CT_ITS ---
CT brain wo con Ordering provider: Ruthy Lane MD History: 69 years Male with . facial droop . Comparison: None. Technique: CT of the head without contrast. Radiation reduction technique utilized. The dose-length p roduct was 681 mGy-cm. FINDINGS: BRAIN PARENCHYMA AND CSF SPACES: Mild leukoaraiosis and diffuse cortical atrophy. Mild atheromatous d isease. 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 No midline shift, mass effe ct or hemorrhage. The brain parenchyma and CSF spaces are otherwise normal. VISUALIZED PARANASAL SINUSES: Well aerated. MASTOIDS: Well aerated. BONES: The bones appear intact. SOFT TISSUES: Visualized nasopharynx is normal. Superficial soft tissues are normal. IMPRESSION: No acute intracranial findings. Reviewed, dictated and finalized at location A.
--- OUTSIDE RECORDS SUMMARY | 2024-10-13 19:51 | XMS_ITS | Encounter Summary ---
Author Organization [facility] Address [address] [place] [address] Phone Care Team Providers Care Business Architect Name Role Phone Nguyễn Sampson MD Primary Care Provide r Fan Lowery MD Unavailable [phone] Raquel Albrecht [facility] Unavailable [phone] Chandan Warren MD Unavailable [phone] Encounter Details Date Type Department Care Team [...] often do you attend chur ch or taoist services? 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 Gender Identity Not on file Sexual Orientation [...] on filedocumented in this encounter Care Teams Business Architect Relationship Specialty Start Date End Date Nguyễn Sampson MD [address] [place] [address] PCP - General 09/27/16 Fan Lowery MD [address] [facility] [phone] [place] [address] Consulting Physician Colon and Rectal Surgery 07/08/21 Raquel Albrecht LCSW [address] [facility] ([facility] Mailstop [phone] [place] [address] [facility] Outpatient Bridge Expert 05/24/22 05/24/22 Chandan Warren MD [address] [facility] [phone] [place] [address] Surgeon Colon and Rectal Surgery 07/19/22 documented as of this encounter
--- OUTSIDE RECORDS SUMMARY | 2024-10-13 19:51 | XMS_ITS | Encounter Summary ---
Author Organization [facility] Address [address] [place] [address] Phone Care Team Providers Care Parking Control Officer Name Role Phone Nguyễn Sampson MD Primary Care Provide r Fna Lowery MD Unavailable [phone] Chandan Warren MD Unavailable [phone] Encounter Details Date Type Department Care Team [...] you attend chur ch or taoist services? Never 10/08/2022 Do you belong to any clubs o r organizations such as moravian groups, unions, fraternal or athletic groups, or [...] place to sleep or slept in a half-way (including now)? No 10/08/2022 Personal Safety Answer Date Recorded Have you ever been in or are you currently in a harmful physical or emotional relationship or is someone making you feel afraid or unsafe? Denies 06/05/2023 Sex and Gender Information Value Date Recorded Sex Assigned at Not on file Legal Sex Male 7:54 PM [employer] Gender Identity Not on file Sexual Orientation [...] on filedocumented in this encounter Care Teams Parking Control Officer Relationship Specialty Start Date End Date Nguyễn Sampson MD [address] [place] [address] PCP - General 09/27/16 Fan Lowery MD [address] [facility] [phone] [place] [address] Consulting Physician Colon and Rectal Surgery 07/08/21 Chandan Warren MD [address] [facility] [phone] [place] [address] Surgeon Colon and Rectal Surgery 07/19/22 documented as of this encounter
--- OUTSIDE RECORDS SUMMARY | 2024-10-13 19:51 | XMS_ITS | Referral Summary ---
Author Organization [facility] [address] Address [address] [place] [address] Care Team Providers Care Board Worker Name Role Phone Nguyễn Sampson MD Primary Care Provide r Fan Lowery MD Unavailable Chandan Warren MD Unavailable [phone] Encounters Date Type Department Care Team Description 10/07/2024 9:30 AM CDT Infusion [facility] Infusion Therapy [address] [place] [address] Crohn's disease of both small and large intestine with intestinal obstruction (HCC) (Primary Dx); Crohn's disease of intestine, unspecified complication (HCC) 09/09/2024 9:30 AM CDT Infusion [facility] Infusion Therapy [address] [place] [address] Crohn's disease of both small and large intestine with intestinal obstruction (HCC) (Primary Dx); Crohn's disease of intestine, unspecified complication (HCC) 08/12/2024 1:15 PM ROTARY FURNACE TENDER Lab [facility] Endocrinology Metabolism and Lipid [address] [place] [address] Crohn's disease of both small and large intestine with intestinal obstruction (HCC) [K50.812] (Primary Dx); Crohn's disease of intestine, unspecified complication (HCC) [K50.919] 08/12/2024 12:45 PM ROTARY FURNACE TENDER Infusion [facility] Infusion Therapy [address] 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 12th [place] [address] [place] [address] Daniel Lewis MD High risk medications (not anticoagulants) long-term use (Primary Dx); Coronary artery disease involving upper mattaponi coronary artery of upper mattaponi heart without angina pectoris; Crohn's disease of both small and large intestine with intestinal obstruction (HCC) 07/17/2024 8:48 AM ROTARY FURNACE TENDER - 07/17/2024 11:59 PM ROTARY FURNACE TENDER Hospital Encounter [facility] [address] [place] [address] Crohn's disease of both small and large intestine with intestinal obstruction (HCC) Discharge Disposition: Discharge to home or self care from Last 3 Months Allergies Active Allergy [...] (81MG) by oral route every day 0 2 Active carvedilol (COREG) 6.25 mg tablet take 1 tablet (6.25MG) by oral route 2 times every day with food 0 2 Active omeprazole (PriLOSEC) 40 mg capsule Take 1 capsule (40 mg total) by mouth every morning Active sertraline (ZOLOFT) 50 mg tablet Take 1 tablet (50 mg total) by mouth nightly Active ALPRAZolam (XANAX) 0.5 mg tablet Take 1 tablet (0.5 mg total) by mouth nightly as needed for sleep 8 Active ergocalciferol (VITAMIN D) 50,000 unit capsule Take 1 capsule (50,000 Units total) by mouth once a week Pt takes on Tuesdays 2 Active atorvastatin (LIPITOR) 20 mg tablet TAKE 1 TABLET BY MOUTH EVERY DAY 90 tablet 1 2 Active lisinopriL (PRINIVIL,ZESTRI L) 5 mg tablet Take 1 tablet (5 mg total) by mouth every morning 3 Active nitroglycerin (NITROSTAT) 0.[address] 1 tablet (0.4 mg total) under the tongue every 5 (five) minutes as needed 3 Active naloxone (NARCAN) 4 mg/actuation spray,non-aeroso l Administer 1 spray into affected nostril(s) as needed for opioid reversal Call 911. Administer a single spray in one nostril. Repeat every 3 minutes as needed if no or minimal response. 1 each 3 Active Additional Information Patient not taking.Reported on 01/12/2024 inFLIXimab (REMICADE) 100 mg injectionIndicat ions:Crohn's disease of both small and large intestine with intestinal obstruction (HCC) Infuse 60 mL (600 mg total) into a venous catheter every 4 (four) weeks 10 mg/kg dose. Site of care: [facility] 4 Active zolpidem (AMBIEN) 10 mg tablet 3 Active zolpidem (AMBIEN) 5 mg tabletIndication s:Sleep-Onset Insomnia Take 1 tablet (5 mg total) by mouth nightly as needed for sleep Hs 1/2 tablet Active azaTHIOprine (IMURAN) 50 mg tabletIndication s:Crohn's disease of intestine, unspecified complication (HCC) TAKE 1/2 TABLET BY MOUTH DAILY 45 tablet 5 Active allopurinoL (ZYLOPRIM) 100 mg tablet TAKE 1 TABLET BY MOUTH DAILY 90 tablet 5 Active Active Problems Problem Noted Date Diagnosed Date [...] diarrhea. Assessment & Plan (05/06/2023 1:57 PM ROTARY FURNACE TENDER): Neck, hand, hip pain. If IBD related IFX is a good choice. Could consider switching from aza to MTX. Will refer to rheum and do pouchoscopy to assess for active crohn's. Postoperative intra-abdominal abscess 09/25/[address] 07/23/2022 Overview (07/23/2022): Added automatically from request for surgery [id number] Hypokalemia 06/29/2022 Crohn's disease of intestine, unspecified [...] evaluation. Assessment & Plan (07/26/2024 2:38 PM ROTARY FURNACE TENDER): He has severe Crohn's disease of the [...] one. Assessment & Plan (05/06/2023 1:55 PM ROTARY FURNACE TENDER): Normal GI symptoms for a pouch, but [...] weeks. Assessment & Plan (07/22/2022 2:50 PM ROTARY FURNACE TENDER): Initially diagnosed with UC s/p IPAA now [...] -Pouchoscopy Assessment & Plan (07/30/2021 1:56 PM ROTARY FURNACE TENDER): Originally diagnosed with UC but now with [...] today Assessment & Plan (07/23/2022 5:06 PM ROTARY FURNACE TENDER): Discuss prevnar 20 next visit Assessment & Plan (12/10/2021 3:32 PM CDT): 4th covid shot Prevnar/pneumovax when finished with covid series Assessment & Plan (07/30/2021 2:00 PM ROTARY FURNACE TENDER): Next visit: DEXA Check vitamin D HBV surface ab, vaccinate if negative Review pneumococcus vaccines High risk medications (not anticoagulants) long- term use 07/30/2021 Assessment & Plan (07/26/2024 2:22 PM ROTARY FURNACE TENDER): All immunosuppressants increase the risk of infection [...] and in addition should follow with a media monitor for skin cancer screening. There is a [...] and in addition should follow with a media monitor for skin cancer screening. There is a [...] and in addition should follow with a media monitor for skin cancer screening. There is a [...] and in addition should follow with a media monitor for skin cancer screening. There is a small risk of lymphoma that we weigh against the risks of uncontrolled IBD. All immunosuppressants increase the risk of infection so we recommend the patient get all available vaccinations, including the pneumococcal vaccine, covid19 and annual influenza vaccine. Assessment & Plan (05/06/2023 1:58 PM ROTARY FURNACE TENDER): All immunosuppressants increase the risk of infection [...] and in addition should follow with a media monitor for skin cancer screening. There is a [...] drinking. Assessment & Plan (07/23/2022 5:05 PM ROTARY FURNACE TENDER): Planning to start infliximab and azathioprine when cleared from surgical standpoint. Discussed risk of infection, abnormal LFTs, heart failure. Will monitor thiopurine metabolites, CBC and LFTs to monitor toxicity. Assessment & Plan (12/10/2021 3:24 PM CDT): On Stelara. Monitor q 3 month labs for hepatotoxicity. I recommended a 4th covid shot. Assessment & Plan (07/30/2021 2:01 PM ROTARY FURNACE TENDER): All immunosuppressants carry a theoretical risk of infection, though ustekinumab is among the safest. We recommend the patient get all available vaccinations, including the pneumococcus series, covid19 and annual influenza. Monitor CBC and HFP q 3 months for cytopenias and hepatotoxicity. Pouchitis 07/02/2021 Overview (07/05/2021): Added automatically from request for surgery [id number] CAD (coronary artery disease) 01/30/2017 Assessment & Plan (07/26/2024 2:23 PM ROTARY FURNACE TENDER): Not a good candidate for rinvoq. Assessment [...] with PO augmentin. Small bowel obstruction 07/02/202109/28 Immunizations Immunization Administration Dates Next Due Influenza, [...] 10/08/2022 How often do you attend chur or latter-day services? Never 10/08/2022 Do you belong to [...] place to sleep or slept in a usp (including now)? No 10/08/2022 Personal Safety Answer Date Recorded Have you ever been in or are you currently in a harmful physical or emotional relationship or is someone making you feel afraid or unsafe? Denies 06/10/2024 Sex and Gender Information Value Date Recorded Sex Assigned at Not on file Legal Sex Male 7:54 PM ROTARY FURNACE TENDER Gender Identity Not on file Sexual Orientation Not on file Last Filed Vital Signs Vital Sign Reading Time Taken Comments Blood Pressure 152/79 10/07/2024 9:29 AM CDT Pulse 64 10/07/2024 9:29 AM CDT Temperature 36.7 C (98 F) 10/07/2024 9:29 AM CDT Respiratory Rate 14 10/07/2024 9:29 AM CDT Oxygen Saturation 99% 10/07/2024 9:41 AM CDT Inhaled Oxygen Concentration - - Weight 66.6 kg (146 lb 12.8 oz) 10/07/2024 9:29 AM CDT Height 170.2 cm (5' 7 ) 08/03/2024 1:43 PM ROTARY FURNACE TENDER Body Mass Index 22.99 08/03/2024 1:43 PM ROTARY FURNACE TENDER Plan of Treatment Not on file Medical Devices Implanted Type Area Guitar Instructor Device Identifier Shelf Expiration Date Model / Serial / Lot Bilateral Hip Replacement Hip Micro Tech Endoscopy Clip Hemostasis Lockado 2.6mm 16mm 235cm Repositionable [id number] - [id number] Implanted:Qty: 4 on 06/05/2022 by Chandan Warren MD at [facility] MICRO TECH ENDOSCOPY 06/11/2023 [id number] / / [id number] Procedures Procedure Name Priority Date/Time Associated Diagnosis Comments CBC WITH AUTO DIFFERENTIAL Routine 08/12/2024 1:00 PM ROTARY FURNACE TENDER Crohn's disease of both small and large intestine with intestinal obstruction (HCC) Crohn's disease of intestine, unspecified complication (HCC) COMPREHENSIVE METABOLIC PANEL Routine 08/12/2024 1:00 PM ROTARY FURNACE TENDER Crohn's disease of both small and large intestine with intestinal obstruction (HCC) Crohn's disease of intestine, unspecified complication (HCC) CRP (ACUTE PHASE) Routine 08/12/2024 1:0 0 PM ROTARY FURNACE TENDER Crohn's disease of both small and large intestine with intestinal obstruction (HCC) Crohn's disease of intestine, unspecified complication (HCC) POCT LIPID PANEL Routine 08/03/2024 2:23 PM ROTARY FURNACE TENDER Coronary artery disease involving upper mattaponi coronary artery of upper mattaponi heart without angina pectoris MRI ABDOMEN/PELVIS ENTEROGRAPHY W WO CONTRAST Schedule Routine, Read Routine (OP Routine) 07/17/2024 11:59 AM ROTARY FURNACE TENDER Crohn's disease of both small and large intestine with intestinal obstruction (HCC) HEPATITIS PANEL, ACUTE Timed 07/07/2021 11:54 AM ROTARY FURNACE TENDER from Last 3 Months or Most Recently Relevant to Health Maintenance Results * (ABNORMAL) CBC with auto differential (08/12/2024 1:00 PM ROTARY FURNACE TENDER) Pathologist [facility] White Blood Count 4.7 3.6 - 11.2 [...] [facility] Blood 08/12/2024 1:00 PM ROTARY FURNACE TENDER 08/12/2024 1:52 PM ROTARY FURNACE TENDER us Daniel Lewis MD LAB BLOOD ORDERABLES Final Result [facility] * CRP (acute phase) (08/12/2024 1:00 PM ROTARY FURNACE TENDER) C-Reactive Protein, Acute <3.0 <5.0 mg/L [facility] Blood 08/12/2024 1:00 PM ROTARY FURNACE TENDER 08/12/2024 1:52 PM ROTARY FURNACE TENDER Daniel Lewis MD LAB BLOOD ORDERABLES Final Result [facility] * (ABNORMAL) Comprehensive metabolic panel (08/12/2024 1:00 PM ROTARY FURNACE TENDER) Total Protein 7.1 6.1 - 8.4 g/dL [...] [facility] Blood 08/12/2024 1:00 PM ROTARY FURNACE TENDER 08/12/2024 1:52 PM ROTARY FURNACE TENDER Narrative [facility] - 08/12/2024 2:50 PM ROTARY FURNACE TENDER Specimen Hemolyzed us Daniel Lewis MD LAB BLOOD ORDERABLES Final Result [facility] * POCT lipid panel (08/03/2024 2:23 PM ROTARY FURNACE TENDER) Cholesterol, POC 140 mg/dL Comment:GLU = 105 HDL, POC 65 mg/dL Triglycerides, POC 153 mg/dL LDL Cholesterol POC 45 mg/dL Chol/HDL Ratio, POC 0.7 Non-HDL Cholesterol, POC 75 mg/dL Cholesterol Total, POC 140 mg/dL Capillary blood 08/03/2024 2 :23 PM ROTARY FURNACE TENDER Nguyễn Meyer MD POINT OF CARE TEST ORDER PUSHPA Final Result * MRI Abdomen Pelvis Enterography W WO Contrast (07/17/2024 11:59 AM ROTARY FURNACE TENDER) Anatomical Region Laterality Modality Body N/A Magnetic Resonan ce 07/19/2024 10:3 2 AM ROTARY FURNACE TENDER Impressions 07/19/2024 12:07 PM ROTARY FURNACE TENDER Narrowing and inflammation and involving the pre-pouch [...] Jaron Danielle M.D. Narrative 07/19/2024 12:07 PM ROTARY FURNACE TENDER EXAMINATION: 1. MAGNETIC RESONANCE IMAGING OF THE [...] IMG MRI PROCEDURES Final Re sult * Hepatitis panel, acute (07/07/2021 11:54 AM ROTARY FURNACE TENDER) Hep A IgM Nonreactive Nonreactive [facility] Comment: Interpretive Data: If Hep A IgM Ab is reported as Equivocal, a new sample should be drawn in two weeks for testing. Current interpretive data was last revised on 19. Hep B core IgM Nonreactive Nonreactive [facility] Comment: Interpretive Data If HepB Core IgM Ab is reported as Equivocal, a new sample should be drawn in two weeks for testing. Current interpretive data was last revised on 19. Hep C Ab Nonreactive Nonreactive [facility] Comment:Antibodies to HCV no t detected. Does NOT exclude the possibility of recent exposure to HCV. HepBsAg Nonreactive Nonreactive [facility] Blood 07/07/2021 11:5 4 AM ROTARY FURNACE TENDER 07/07/2021 12:39 PM ROTARY FURNACE TENDER Fan Lowery MD LAB MICROBIOLOGY - GENE RAL ORDERABLES Edited Result - Final [facility] Department [place] [address] from Last 3 Months or Most Recently Relevant to Health [place] [address] [employer] MED[employer]ARE GOLD A[employer] MEDICARE GOLD [place] [address] [employer] MEDICARE GOLD Advance Directives For more information, please contact: [phone] * Full Code (Latest Code Status on [...] 2:03 PM 09/12/2022 8:55 PM Care Teams Board Worker Relationship Specialty Start Date End Date Nguyễn Sampson MD [address] [place] [address] PCP - General 09/27/16 Fan Lowery MD [id number] [place] [address] Consulting Physician Colon and Rectal Surgery 07/08/21 Chandan Warren MD [id number] [place] [address] Surgeon Colon and Rectal Surgery 07/19/22
--- OUTSIDE RECORDS SUMMARY | 2024-10-13 19:51 | XMS_ITS | Clinical Summary ---
Author Organization [facility] [address] Address [address] [place] [address] Care Team Providers Care Horseshoer Name Role Phone Nguyễn Sampson MD Primary Care Provide r Fan Lowery MD Unavailable [phone] Chandan Warren MD Unavailable [phone] Allergies Active Allergy Reactions Criticality Noted Date [...] diarrhea. Assessment & Plan (05/06/2023 1:57 PM PUBLIC TRANSIT BUS DRIVER): Neck, hand, hip pain. If IBD related IFX is a good choice. Could consider switching from aza to MTX. Will refer to rheum and do pouchoscopy to assess for active crohn's. Postoperative intra-abdominal abscess 09/25/[address] 07/23/2022 Overview (07/23/2022): Added automatically from request for surgery [id number] Hypokalemia 06/29/2022 Crohn's disease of intestine, unspecified [...] intra-abd abscess/infected hematoma. S/p perc drainage x2 10/07/-10/10/2022 admit for SBO, managed conservatively 11/15/2022 6TG [...] evaluation. Assessment & Plan (07/26/2024 2:38 PM PUBLIC TRANSIT BUS DRIVER): He has severe Crohn's disease of the [...] one. Assessment & Plan (05/06/2023 1:55 PM PUBLIC TRANSIT BUS DRIVER): Normal GI symptoms for a pouch, but [...] weeks. Assessment & Plan (07/22/2022 2:50 PM PUBLIC TRANSIT BUS DRIVER): Initially diagnosed with UC s/p IPAA now [...] -Pouchoscopy Assessment & Plan (07/30/2021 1:56 PM PUBLIC TRANSIT BUS DRIVER): Originally diagnosed with UC but now with [...] today Assessment & Plan (07/23/2022 5:06 PM PUBLIC TRANSIT BUS DRIVER): Discuss prevnar 20 next visit Assessment & Plan (12/10/2021 3:32 PM CDT): 4th covid shot Prevnar/pneumovax when finished with covid series Assessment & Plan (07/30/2021 2:00 PM PUBLIC TRANSIT BUS DRIVER): Next visit: DEXA Check vitamin D HBV surface ab, vaccinate if negative Review pneumococcus vaccines High risk medications (not anticoagulants) long- term use 07/30/2021 Assessment & Plan (07/26/2024 2:22 PM PUBLIC TRANSIT BUS DRIVER): All immunosuppressants increase the risk of infection [...] and in addition should follow with a infrastructure security architect for skin cancer screening. There is a [...] and in addition should follow with a infrastructure security architect for skin cancer screening. There is a [...] and in addition should follow with a infrastructure security architect for skin cancer screening. There is a [...] and in addition should follow with a infrastructure security architect for skin cancer screening. There is a small risk of lymphoma that we weigh against the risks of uncontrolled IBD. All immunosuppressants increase the risk of infection so we recommend the patient get all available vaccinations, including the pneumococcal vaccine, covid19 and annual influenza vaccine. Assessment & Plan (05/06/2023 1:58 PM PUBLIC TRANSIT BUS DRIVER): All immunosuppressants increase the risk of infection [...] and in addition should follow with a infrastructure security architect for skin cancer screening. There is a [...] drinking. Assessment & Plan (07/23/2022 5:05 PM PUBLIC TRANSIT BUS DRIVER): Planning to start infliximab and azathioprine when cleared from surgical standpoint. Discussed risk of infection, abnormal LFTs, heart failure. Will monitor thiopurine metabolites, CBC and LFTs to monitor toxicity. Assessment & Plan (12/10/2021 3:24 PM CDT): On Stelara. Monitor q 3 month labs for hepatotoxicity. I recommended a 4th covid shot. Assessment & Plan (07/30/2021 2:01 PM PUBLIC TRANSIT BUS DRIVER): All immunosuppressants carry a theoretical risk of infection, though ustekinumab is among the safest. We recommend the patient get all available vaccinations, including the pneumococcus series, covid19 and annual influenza. Monitor CBC and HFP q 3 months for cytopenias and hepatotoxicity. Pouchitis 07/02/2021 Overview (07/05/2021): Added automatically from request for surgery [id number] CAD (coronary artery disease) 01/30/2017 Assessment & Plan (07/26/2024 2:23 PM PUBLIC TRANSIT BUS DRIVER): Not a good candidate for rinvoq. Assessment [...] Team Description 10/07/2024 9:30 AM CDT Infusion [facility] Infusion Therapy [address] [place] [address] 5th [place] [address] [place] [address] Crohn's disease of both small and large intestine with intestinal obstruction (HCC) (Primary Dx); Crohn's disease of intestine, unspecified complication (HCC) 09/09/2024 9:30 AM CDT Infusion [facility] Infusion Therapy [address] [place] [address] 5th [place] [address] [place] [address] Crohn's disease of both small and large intestine with intestinal obstruction (HCC) (Primary Dx); Crohn's disease of intestine, unspecified complication (HCC) 08/12/2024 1:15 PM PUBLIC TRANSIT BUS DRIVER Lab [facility] Endocrinology Metabolism and Lipid [address] [place] [address] [place] [address] [place] [address] Crohn's disease of both small and large intestine with intestinal obstruction (HCC) [K50.812] (Primary Dx); Crohn's disease of intestine, unspecified complication (HCC) [K50.919] 08/12/2024 12:45 PM PUBLIC TRANSIT BUS DRIVER Infusion [facility] Infusion Therapy [address] [place] [address] 5th [place] [address] [place] [address] Crohn's disease of both small and large intestine with intestinal obstruction (HCC) (Primary Dx); Crohn's disease of intestine, unspecified complication (HCC) 08/03/2024 1:45 PM PUBLIC TRANSIT BUS DRIVER Office Visit [facility] Card[facility] [address] [facility] [address] [place] [address] Nguyễn Meyer MD Coronary artery disease involving knik coronary artery of knik heart without angina pectoris (Primary Dx); S/P coronary artery stent placement 07/28/2024 Documentation Gastroententerology Yesenia Cai BS 07/26/2024 11:45 AM PUBLIC TRANSIT BUS DRIVER Office Visit [facility] Gastroenterology [address] [place] [address] 12th [place] [address] [place] [address] Daniel Lewis MD High risk medications (not anticoagulants) long-term use (Primary Dx); Coronary artery disease involving knik coronary artery of knik heart without angina pectoris; Crohn's disease of both small and large intestine with intestinal obstruction (HCC) 07/17/2024 8:48 AM PUBLIC TRANSIT BUS DRIVER - 07/17/2024 11:59 PM PUBLIC TRANSIT BUS DRIVER Hospital Encounter [facility] [address] [place] [address] Crohn's disease of both small and large intestine with intestinal obstruction (HCC) Discharge Disposition: Discharge to home or self care from Last 3 Months Immunizations Immunization Administration [...] Osteoarthritis Osteoarthritis Shoulder pain R. shoulder pain PA (myocardial infarction) (HCC) 2010 h/o PA and Vfib cardiac arrest 2010 requiring multiple shocks for rescucitation CHF (congestive heart failure) (HCC) Crohn's disease (HCC) Ulcerative colitis dxd 2001 with Crohn's diagnosed subsequently History of ventricular fibrillation h/o PA and Vfib cardiac arrest 2010 requiring multiple shocks for rescucitation Hyperlipidemia Treated with sta tin Anemia GERD (gastroesophageal reflu x disease) Well controlled with daily P PI SBO (small bowel obstruction) ([facility]) 09/17/2022 Hypertension Anxiety Family History Medical History [...] often do you attend chur ch or yazdanism services? Never 10/08/2022 Do you belong to any clubs o r organizations such as scientologist groups, unions, fraternal or athletic groups, or [...] on file Legal Sex Male 7:54 PM PUBLIC TRANSIT BUS DRIVER Gender Identity Not on file Sexual Orientation [...] cm (5' 7 ) 08/03/2024 1:43 PM PUBLIC TRANSIT BUS DRIVER Body Mass Index 22.99 08/03/2024 1:43 PM PUBLIC TRANSIT BUS DRIVER Plan of Treatment Health Maintenance Due Date Last Done Comments Colon Cancer Screening-Colonoscopy 1955 Prostate Cancer Screening-PSA 1955 DTaP/Tdap/Td Vaccine (1 - Tdap) 10/01/1967 Zoster Vaccine (1 of 2) 10/01/1975 Well Visit 65+ 2021 Depression Screening 06/29/2023 06/29/2022, 05/27/20 Influenza Vaccine (Season Ended) 2025 03/29/2022, 07/03/2021, 04/27/2020, Additional history exists Fall Risk Assessment 06/10/2025 06/10/2024 Hepatitis C Screening Completed 07/07/2021 Hepatitis B Screening Completed 08/07/2022 Pneumococcal vaccine 65+ Completed 10/21/2022 Medical Devices Implanted Type Area Administrative Assistant Receptionist Device Identifier Shelf Expiration Date Model / Serial / Lot Bilateral Hip Replacement Hip Micro Tech Endoscopy Clip Hemostasis Lockado 2.6mm 16mm 235cm Repositionable [id number] - [id number] Implanted:Qty: 4 on 06/05/2022 by Chandan Warren MD at [facility] MICRO TECH ENDOSCOPY 06/11/2023 [id number] / / [id number] Procedures Procedure Name Priority Date/Time Associated Diagnosis Comments CBC WITH AUTO DIFFERENTIAL Routine 08/12/2024 1:00 PM PUBLIC TRANSIT BUS DRIVER Crohn's disease of both small and large intestine with intestinal obstruction (HCC) Crohn's disease of intestine, unspecified complication (HCC) COMPREHENSIVE METABOLIC PANEL Routine 08/12/2024 1:00 PM PUBLIC TRANSIT BUS DRIVER Crohn's disease of both small and large intestine with intestinal obstruction (HCC) Crohn's disease of intestine, unspecified complication (HCC) CRP (ACUTE PHASE) Routine 08/12/2024 1:0 0 PM PUBLIC TRANSIT BUS DRIVER Crohn's disease of both small and large intestine with intestinal obstruction (HCC) Crohn's disease of intestine, unspecified complication (HCC) POCT LIPID PANEL Routine 08/03/2024 2:23 PM PUBLIC TRANSIT BUS DRIVER Coronary artery disease involving knik coronary artery of knik heart without angina pectoris MRI ABDOMEN/PELVIS ENTEROGRAPHY W WO CONTRAST Schedule Routine, Read Routine (OP Routine) 07/17/2024 11:59 AM PUBLIC TRANSIT BUS DRIVER Crohn's disease of both small and large intestine with intestinal obstruction (HCC) HEPATITIS PANEL, ACUTE Timed 07/07/2021 11:54 AM PUBLIC TRANSIT BUS DRIVER from Last 3 Months or Most Recently Relevant to Health Maintenance Results * (ABNORMAL) CBC with auto differential (08/12/2024 1:00 PM PUBLIC TRANSIT BUS DRIVER) White Blood Count 4.7 3.6 - 11.2 [...] [facility] Blood 08/12/2024 1:00 PM PUBLIC TRANSIT BUS DRIVER 08/12/2024 1:52 PM PUBLIC TRANSIT BUS DRIVER Daniel Lewis MD LAB BLOOD ORDERABLES Final Result Performing Organization Address [facility] Co de Phone Number [facility] * CRP (acute phase) (08/12/2024 1:00 PM PUBLIC TRANSIT BUS DRIVER) Pathologist [facility] C-Reactive Protein, Acute <3.0 <5.0 mg/L [facility] Blood 08/12/2024 1:00 PM PUBLIC TRANSIT BUS DRIVER 08/12/2024 1:52 PM PUBLIC TRANSIT BUS DRIVER Daniel Lewis MD LAB BLOOD ORDERABLES Final Result Performing Organization Address [facility] de Phone Number [facility] * (ABNORMAL) Comprehensive metabolic panel (08/12/2024 1:00 PM PUBLIC TRANSIT BUS DRIVER) Pathologist [facility] Total Protein 7.1 6.1 - 8.4 g/dL [...] [facility] Blood 08/12/2024 1:00 PM PUBLIC TRANSIT BUS DRIVER 08/12/2024 1:52 PM PUBLIC TRANSIT BUS DRIVER Narrative [facility] - 08/12/2024 2:50 PM PUBLIC TRANSIT BUS DRIVER Specimen Hemolyzed us Daniel Lewis MD LAB BLOOD ORDERABLES Final Result [facility] * POCT lipid panel (08/03/2024 2:23 PM PUBLIC TRANSIT BUS DRIVER) Cholesterol, POC 140 mg/dL Comment:GLU = 105 HDL, POC 65 mg/dL Triglycerides, POC 153 mg/dL LDL Cholesterol POC 45 mg/dL Chol/HDL Ratio, POC 0.7 Non-HDL Cholesterol, POC 75 mg/dL Cholesterol Total, POC 140 mg/dL Capillary blood 08/03/2024 2 :23 PM PUBLIC TRANSIT BUS DRIVER us Nguyễn Meyer MD POINT OF CARE TEST ORDER PUSHPA Final Result * MRI Abdomen Pelvis Enterography W WO Contrast (07/17/2024 11:59 AM PUBLIC TRANSIT BUS DRIVER) Anatomical Region Laterality Modality Body N/A Magnetic Resonan ce 07/19/2024 10:3 2 AM PUBLIC TRANSIT BUS DRIVER Impressions 07/19/2024 12:07 PM PUBLIC TRANSIT BUS DRIVER Narrowing and inflammation and involving the pre-pouch [...] Jaron Danielle M.D. Narrative 07/19/2024 12:07 PM PUBLIC TRANSIT BUS DRIVER EXAMINATION: 1. MAGNETIC RESONANCE IMAGING OF THE [...] * Hepatitis panel, acute (07/07/2021 11:54 AM PUBLIC TRANSIT BUS DRIVER) Hep A IgM Nonreactive Nonreactive [facility] Comment: Interpretive Data: If Hep A IgM Ab is reported as Equivocal, a new sample should be drawn in two weeks for testing. Current interpretive data was last revised on 19. Hep B core IgM Nonreactive Nonreactive [facility] Comment: Interpretive Data If HepB Core IgM Ab is reported as Equivocal, a new sample should be drawn in two weeks for testing. Current interpretive data was last revised on 19. Hep C Ab Nonreactive Nonreactive [facility] Comment:Antibodies to HCV no t detected. Does NOT exclude the possibility of recent exposure to HCV. HepBsAg Nonreactive Nonreactive [facility] Blood 07/07/2021 11:5 4 AM PUBLIC TRANSIT BUS DRIVER 07/07/2021 12:39 PM PUBLIC TRANSIT BUS DRIVER Fan Lowery MD LAB MICROBIOLOGY - GENE RAL ORDERABLES Edited Result - Final [facility] Department [place] [address] from Last 3 Months or Most Recently Relevant to Health Maintenance [place] [address] [place] [address] AET MEDIC[place] [address] T MEDICARE GOLD Advance Directives For more information, please contact: [phone] * Full Code (Latest Code Status on [...] 2:03 PM 09/12/2022 8:55 PM Care Teams Horseshoer Relationship Specialty Start Date End Date Nguyễn Sampson MD [address] [place] [id number] PCP - General 09/27/16 Fan Lowery MD [phone] [place] [address] Consulting Physician Colon and Rectal Surgery 07/08/21 Chandan Warren MD [phone] [place] [address] Surgeon Colon and Rectal Surgery 07/19/22
--- OUTSIDE RECORDS SUMMARY | 2024-10-13 19:51 | XMS_ITS | Clinical Summary ---
Author Organization [facility] Address [address] [place], [place] [id number] Care Team Providers Care Medical Oncology Physician Name Role Phone Unavailable Primary Care Provider Unavailabl e Social History Tobacco Use Types Packs/Day Years Used Date Smoking Tobacco: Never Assessed Sex and Gender Information Value Date Recorded Sex Assigned at Not on file Legal Sex Male 12:05 PM [employer] Gender Identity Not on file Sexual Orientation Not on file Plan of Treatment Health Maintenance Due Date Last Done Comments Colorectal Cancer Screening Colonoscopy (10 Years) 1955 Hepatitis C 1974 DTaP, Tdap and Td Vaccines ( 1 - Tdap) 10/01/1975 Zoster Vaccines (1 of 2) 2006 Annual Medicare Wellness Visit 2021 Pneumococcal Vaccine: 50+ Ye ars (1 of 1 - PCV) 2021 COVID-19 Vaccine (1 - 2023-2 5 season) 2024 RSV Immunization or 60+ Years (1 [...]
[2024-10-13 19:53] VITALS: BP 116/58; PULSE 66; RESP 14; TEMP 36.6; O2SAT 100
[2024-10-13 20:21] LABS: Basophils Percent Auto 0.8 % (0.2-1.2); Eosinophils Absolute Auto 0.3 K/mm3 (0-0.3); Eosinophils Percent Auto 6.2 % (0-4.4); Hematocrit 31.7 % (42.0-52.0); Hemoglobin 10.4 g/dL (14.0-18.0); Immature Granulocyte Absolute 0.05 K/mm3 (0.00-0.031); Immature Granulocyte Percent A 1.1 % (0-0.5); Lymphocytes Absolute Auto 0.79 K/mm3 (0.9-3.2); Lymphocytes Percent Auto 16.8 % (18.3-44.2); Mean Corpuscular HGB Conc 32.8 g/dl (32-36); Mean Corpuscular Hemoglobin 36.1 pg (26-34); Mean Corpuscular Volume 110.1 fl (80-100); Mean Platelet Volume 9.1 fl (7.4-10.4); Monocytes Absolute Auto 0.8 K/mm3 (0.1-0.6); Neutrophils Absolute Auto 2.7 K/mm3 (1.3-6.7); Neutrophils Percent Auto 58.1 % (45.5-73.1); Platelet Count Result 168 k/mm3 (150-375); Red Blood Count 2.88 M/mm3 (4.6-6.20); Red Cell Distribution Width 15.2 % (11.5-14.5); White Blood Count 4.7 K/mm3 (4.5-10.0)
[2024-10-13 20:30] LABS: Alanine Aminotransferase 24 U/L (6-50); Alkaline Phosphatase 70 U/L (38-126); Anion Gap 10 mmol/L (4-12); Aspartate Amino Transferase 40 U/L (17-59); Bilirubin,Total 0.5 mg/dL (0.2-1.3); Blood Urea Nitrogen 16 mg/dL (9-20); Calcium 8.6 mg/dL (8.4-10.2); Carbon Dioxide 24 mmol/L (22-30); Chloride 104 mmol/L (98-107); Estimated CRCL calculation 40 ml/min; Estimated Glomerular Filt Rate 48; Glucose 95 mg/dL (65-110); Potassium 3.6 mmol/L (3.4-5.0); Sodium 138 mmol/L (137-145)
[2024-10-13 20:34] LABS: Ethanol 223 mg/dL (<10)
--- NOTE | 2024-10-13 21:18 | ED.GENADULT ---
HPI - General Adult General Chief complaint: Unspecified Stated complaint: +ETOH-fell off barstool,lt side facial droop/resol Time Seen by Provider: 10/13/24 21:05 History of Present Illness HPI narrative: Patient is a 69-year-old male who presents emergency department this evening from home secondary to alcohol intoxication. Patient admits that he has had at least 3 beers and 3 shots and admits to history of alcohol abuse. is at bedside and confirms this despite her trying to get him to quit. Patient does appear to be intoxicated at this time, however, he is answering all my questions appropriately and following all of my commands. states that he has been having hip issues for over 6 months and admits that he has had bilateral hip replacements performed many years ago in [place]. states that she has noticed that patient from time to time will tend to drag his right foot. Denies any recent falls or trauma today. Patient has been walking and ambulating without any difficulty. Patient was seen at our facility on September 24 for similar symptoms and at that time he was instructed to follow up with Orthopedics with Dr. Mccauley wanted additional blood testing obtained and patient states that he had the blood test done at [facility] but the results are not back it. He is scheduled to see Dr. Mccauley next week regarding his chronic hip pain. Patient states that he has had a CT of his hip recently revealing no fractures. Today, there was some concern that the patient had a droopy face, however, EMS arrival, the symptoms resolved, and states that this happens often every time he drinks. My assessment patient does not appear to have any neurological deficits, NIH score 0. Related Data Home Medications ?Medication ?Instructions ?Recorded ?Confirmed ?Last Taken ?Type aspirin 81 mg chewable tablet 81 mg PO DAILY 05/13/19 09/24/24 Unknown History allopurinol 100 mg tablet 100 mg PO DAILY 05/12/23 09/24/24 Unknown History azathioprine 50 mg tablet 50 mg PO DAILY 03/11/24 09/24/24 Unknown History acetaminophen 650 mg 650 mg PO Q12H 09/24/24 09/24/24 Unknown History tablet,extended release diphenhydramine HCl 25 mg tablet 25 mg PO QHS PRN 09/24/24 09/24/24 Unknown History (Benadryl Allergy) infliximab 100 mg intravenous IV 09/24/24 09/24/24 Unknown History solution (Remicade) Allergies Allergy/AdvReac Type Severity Reaction Status Date / Time prednisone Allergy Unknown Unknown Verified 10/13/24 20:03 Review of Systems Review of Systems: All systems are reviewed and are negative unless stated otherwise in the HPI. [facility] Past Medical History Medical History Atherosclerotic heart disease Arthralgia Yeast infection of the skin Urticaria Ulcerative colitis, unspecified, without complications Skin lesion Rosacea, acne Rib pain on left side Rash and nonspecific skin eruption Primary generalized (osteo)arthritis Major depressive disorder, single episode, unspecified Gastro-esophageal reflux disease without esophagitis Essential hypertension Dermatitis Actinic keratosis Abnormal LFTs (liver function tests) Depression Cardiomyopathy due to hypertension, with heart failure HLD (hyperlipidemia) Family History Family History Mother Hypertension, Onset Age: 69 Father Family history of malignant neoplasm Social History Social History Social History: Patient drinks caffeine weekly and exercises 3 days per week. Smoking status: Never smoker Second hand tobacco smoke exposure: No Alcohol intake: current Alcohol use details: Patient drinks alcohol weekly. Substance use: never Substance use type: does not use Do You Feel Safe in your Home?: Yes Lack of Transportation: No Lack of Food: Never True Current Housing: I Have Housing Concerned About Future Housing: No Difficulty Paying Gas/Electric Bills: No Difficulty Paying for Meds: No Currently Unemployed: Decline to Answer Education: Trade/Vocational Certificate Difficulty w/ Childcare or Family Care: No Living arrangements: with family Additional living arrangements comments: Occupation/Education: retired Gender identity (if verbalized by the patient): Male Sexual Orientation (if Verbalized by the Patient): Straight or Heterosexual Exam Narrative: General: Alert, awake, afebrile, in no acute distress, intoxicated. HEENT: PERRL, no rhinorrhea, no post nasal drip, oropharynx clear. Neck: Trachea midline, no JVD, no lymphadenopathy. Cardiovascular: Regular rate and rhythm, no murmurs, rubs or gallops, no peripheral edema. Respiratory: Clear to auscultation bilaterally, no tachypnea, no wheezing, no rhonchi, no rubs, no respiratory distress. Abdomen: Soft, nontender, nondistended, no rebound, no guarding, no peritoneal signs. Musculoskeletal: No joint swelling or deformity, normal muscle tone, intact bilateral hip flexions and knee extension. Skin: No rashes or petechia, no signs of infection. Psychiatric: Alert and oriented, normal behavior and judgment for situation. Neurological: Alert and oriented to person, place, and time despite his alcohol intoxication. Follows all commands. 5/5 motor strength in the bilateral upper and lower extremity, cranial nerves 2-12 grossly intact, sensation intact equal in the bilateral upper and lower extremity. Speech is clear and fluent. Course Vital Signs Vital signs: Vital Signs Temperature 97.8 F 10/13/24 19:53 Pulse Rate 66 10/13/24 19:53 Respiratory Rate 14 10/13/24 19:53 Blood Pressure 116/58 L 10/13/24 19:53 Pulse Oximetry 100 10/13/24 19:53 Oxygen Delivery Room Air 10/13/24 19:53 Temperature 97.8 F 10/13/24 19:53 Pulse Rate 66 10/13/24 19:53 Respiratory Rate 14 10/13/24 19:53 Blood Pressure 116/58 L 10/13/24 19:53 Pulse Oximetry 100 10/13/24 19:53 Oxygen Delivery Room Air 10/13/24 19:53 Medical Decision Making MDM Narrative Medical decision making narrative: The patient was evaluated by myself in the emergency department. History is obtained from patient who is an independent historian and physical exam was performed. External medical records were reviewed at this time. IV was established and pertinent tests were ordered. Laboratory results obtained revealing an alcohol level of 223. Despite patient's alcohol level, he appears to be clinically sober and states that this secondary to his chronic alcohol causing him to develop a tolerance to alcohol. Imaging studies obtained included CT brain without IV contrast which was independently interpreted by me revealing no acute intracranial process, which is pending final radiology interpretation. Differential diagnosis considerations include alcohol intoxication, dehydration, electrolyte derangements. Comorbidities impacting this visit include history of alcohol abuse. I have evaluated and discussed social determinants of health with the patient that could potentially impact subsequent diagnosis and treatment plans, including his alcohol abuse and he was educated on alcohol use disorder and current to quit his has been attempting to get him to cut down on his alcohol intake for many years with no success. On repeat assessment of the patient, reevaluation revealed that the patient is doing well and is in no acute distress. Patient symptoms have improved since he arrived to our emergency department. Repeat vital signs were all reviewed and noted to be stable. Differential diagnosis and treatment plan were discussed with the patient at bedside. Patient agrees with discussion and after shared medical decision making agrees with discharge. All questions were answered to the patient's satisfaction. Patient will follow up with his PCP in 3-5 days. Patient was provided with strict return precautions and instructed to return to the emergency department if any new or worsening symptoms develop. The patient was discharged in stable condition to the care of his . Vital Signs Vital Signs: Vital Signs Temperature 97.8 F 10/13/24 19:53 Pulse Rate 66 10/13/24 19:53 Respiratory Rate 14 10/13/24 19:53 Blood Pressure 116/58 L 10/13/24 19:53 Pulse Oximetry 100 10/13/24 19:53 Oxygen Delivery Room Air 10/13/24 19:53 Temperature 97.8 F 10/13/24 19:53 Pulse Rate 66 10/13/24 19:53 Respiratory Rate 14 10/13/24 19:53 Blood Pressure 116/58 L 10/13/24 19:53 Pulse Oximetry 100 10/13/24 19:53 Oxygen Delivery Room Air 10/13/24 19:53 Lab Data 10/13/24 20:15 10/13/24 20:15 Labs: Lab Results 10/13/24 Range/Units 20:15 WBC 4.7 (4.5-10.0) K/mm3 RBC 2.88 L (4.6-6.20) M/mm3 Hgb 10.4 L (14.0-18.0) g/dL Hct 31.7 L (42.0-52.0) % MCV 110.1 H (80-100) fl MCH 36.1 H (26-34) pg MCHC 32.8 (32-36) g/dl RDW 15.2 H (11.5-14.5) % Plt Count 168 (150-375) k/mm3 MPV 9.1 (7.4-10.4) fl Immature Gran % (Auto) 1.1 H (0-0.5) % Neut % (Auto) 58.1 (45.5-73.1) % Lymph % (Auto) 16.8 L (18.3-44.2) % Porter % (Auto) 17.0 H (2.6-8.5) % Eos % (Auto) 6.2 H (0-4.4) % Baso % (Auto) 0.8 (0.2-1.2) % Lymph # (Auto) 0.79 L (0.9-3.2) K/mm3 Porter # (Auto) 0.8 H (0.1-0.6) K/mm3 Eos # (Auto) 0.3 (0-0.3) K/mm3 Baso # (Auto) 0.0 (0.0-0.1) K/mm3 Abs Immat Gran (auto) 0.05 H (0.00-0.031) K/mm3 Absolute Neuts (auto) 2.7 (1.3-6.7) K/mm3 Absolute Nucleated RBC 0.000 (0.0-0.012) K/mm3 Nucleated RBC % 0.0 (0.0-0.2) % Sodium 138 (137-145) mmol/L Potassium 3.6 (3.4-5.0) mmol/L Chloride 104 (98-107) mmol/L Carbon Dioxide 24 (22-30) mmol/L Anion Gap 10 (4-12) mmol/L BUN 16 (9-20) mg/dL Creatinine 1.47 H (0.7-1.3) mg/dL Estim Creat Clear Calc 40 ml/min Estimated GFR 48 L (59 - ) Glucose 95 (65-110) mg/dL Calcium 8.6 (8.4-10.2) mg/dL Total Bilirubin 0.5 (0.2-1.3) mg/dL AST 40 (17-59) U/L ALT 24 (6-50) U/L Alkaline Phosphatase 70 (38-126) U/L Total Protein 8.0 (6.3-8.2) g/dL Albumin 4.0 (3.5-5.1) g/dL Ethyl Alcohol 223 (<10) mg/dL Discharge Plan Discharge Clinical Impression: Alcohol intoxication Patient Disposition: Home Condition: Improved Instructions: Antibiotic Form, Alcohol Intoxication (DC), Abuse of Alcohol (DC) Additional Instructions: Please follow-up with your family doctor within the next 3-5 days. Return to the emergency department if any new or worsening symptoms develop. Patient Language: Danish Prescriptions: No Action allopurinol 100 mg tablet 100 mg PO DAILY azathioprine 50 mg tablet 50 mg PO DAILY acetaminophen 650 mg tablet extended release 650 mg PO Q12H diphenhydramine HCl [Benadryl Allergy] 25 mg tablet 25 mg PO QHS PRN infliximab [Remicade] 100 mg recon soln IV aspirin 81 mg tablet,chewable 81 mg PO DAILY omeprazole 40 mg capsule,delayed release(DR/EC) See Rx Instructions .ROUTE .COMPLEX Qty: 90 2RF Dose Instruction: TAKE 1 CAPSULE BY MOUTH EVERY DAY Rx Instructions: TAKE 1 CAPSULE BY MOUTH EVERY DAY atorvastatin 20 mg tablet 20 mg PO DAILY Qty: 100 2RF lisinopril 5 mg tablet See Rx Instructions .ROUTE .COMPLEX Qty: 100 2RF Dose Instruction: TAKE 1 TABLET BY MOUTH EVERY DAY Rx Instructions: TAKE 1 TABLET BY MOUTH EVERY DAY ergocalciferol (vitamin D2) 1,250 mcg (50,000 unit) capsule See Rx Instructions .ROUTE .COMPLEX Qty: 12 2RF Dose Instruction: TAKE 1 CAPSULE BY MOUTH ONE TIME PER WEEK Rx Instructions: TAKE 1 CAPSULE BY MOUTH ONE TIME PER WEEK sertraline 50 mg tablet See Rx Instructions .ROUTE .COMPLEX Qty: 90 2RF Dose Instruction: TAKE 1 TABLET BY MOUTH EVERY DAY Rx Instructions: TAKE 1 TABLET BY MOUTH EVERY DAY alprazolam [Xanax] 0.5 mg tablet 0.5 mg PO BID PRN (Reason: anxiety) Qty: 60 2RF carvedilol 6.25 mg tablet See Rx Instructions .ROUTE .COMPLEX Qty: 180 2RF Dose Instruction: TAKE 1 TABLET BY MOUTH TWICE A DAY Rx Instructions: TAKE 1 TABLET BY MOUTH TWICE A DAY nitroglycerin 0.4 mg tablet, sublingual See Rx Instructions .ROUTE .COMPLEX Qty: 25 3RF Dose Instruction: PLACE 1 TABLET SUBLINGUAL ROUTE AT THE FIRST SIGN OF ATTACK (CHEST PAIN) Rx Instructions: PLACE 1 TABLET SUBLINGUAL ROUTE AT THE FIRST SIGN OF ATTACK (CHEST PAIN) zolpidem 10 mg tablet 10 mg PO QHS PRN (Reason: insomnia) Qty: 30 1RF Follow-up/Referrals: Nguyễn Sampson MD [Primary Care Provider] - 3 Days Time of Disposition: 21:18
--- OUTSIDE RECORDS SUMMARY | 2024-10-13 21:22 | XMS_ITS | Encounter Summary ---
Author Organization [facility] Address [address] [place] [address] Phone Care Team Providers Care Tool/Die Maker Name Role Phone Nguyễn Sampson MD Primary Care Provide r Fan Lowery MD Unavailable [phone] Chandan Warren MD Unavailable [phone] Encounter Details Date Type Department Care Team [...] often do you attend chur ch or rastafarian services? Never 10/08/2022 Do you belong to any clubs o r organizations such as buddhism groups, unions, fraternal or athletic groups, or [...] place to sleep or slept in a [place] [facility] (including now)? No 10/08/2022 Personal Safety Answer Date Recorded Have you ever been in or are you currently in a harmful physical or emotional relationship or is someone making you feel afraid or unsafe? 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
--- OUTSIDE RECORDS SUMMARY | 2024-10-13 21:22 | XMS_ITS | Referral Summary ---
Author Organization [facility] [place] [address] Address [address] [place] [address] Care Team Providers Care Line Runner Name Role Phone Nguyễn Sampson MD Primary Care Provide r Fan Lowery MD Unavailable [phone] Chandan Warren MD Unavailable [phone] Encounters Date Type Department Care Team Description 10/07/2024 9:30 AM CDT Infusion [facility] Infusion Therapy [address] [place] [address] Crohn's disease of both small and large intestine with intestinal obstruction (HCC) (Primary Dx); Crohn's disease of intestine, unspecified complication (HCC) 09/09/2024 9:30 AM CDT Infusion [facility] Infusion Therapy [address] [place] [address] Crohn's disease of both small and large intestine with intestinal obstruction (HCC) (Primary Dx); Crohn's disease of intestine, unspecified complication (HCC) 08/12/2024 1:15 PM TOOL AND DIE MAKER/DESIGNER Lab [facility] Endocrinology Metabolism and Lipid [address] [place] [address] Crohn's disease of both small and large intestine with intestinal obstruction (HCC) [K50.812] (Primary Dx); Crohn's disease of intestine, unspecified complication (HCC) [K50.919] 08/12/2024 12:45 PM TOOL AND DIE MAKER/DESIGNER Infusion [facility] Infusion Therapy [address] [facility] 5th [place] [address] [place] [address] Crohn's disease of both small and large intestine with intestinal obstruction (HCC) (Primary Dx); Crohn's disease of intestine, unspecified complication (HCC) 08/03/2024 1:45 PM TOOL AND DIE MAKER/DESIGNER Office Visit [facility] Cardiology [address] [place] [address] Nguyễn Meyer MD Coronary artery disease involving caddo coronary artery of caddo heart without angina pectoris (Primary Dx); S/P coronary artery stent placement 07/28/2024 Documentation Gastroententerology Yesenia Cai BS 07/26/2024 11:45 AM TOOL AND DIE MAKER/DESIGNER Office Visit [facility] Gastroenterology [address] [facility] 12th [place] [address] [place] [address] Daniel Lewis MD High risk medications (not anticoagulants) long-term use (Primary Dx); Coronary artery disease involving caddo coronary artery of caddo heart without angina pectoris; Crohn's disease of both small and large intestine with intestinal obstruction (HCC) 07/17/2024 8:48 AM TOOL AND DIE MAKER/DESIGNER - 07/17/2024 11:59 PM TOOL AND DIE MAKER/DESIGNER Hospital Encounter [facility] [address] [place] [address] Crohn's disease of both small and large [...] diarrhea. Assessment & Plan (05/06/2023 1:57 PM TOOL AND DIE MAKER/DESIGNER): Neck, hand, hip pain. If IBD related IFX is a good choice. Could consider switching from aza to MTX. Will refer to rheum and do pouchoscopy to assess for active crohn's. Postoperative intra-abdominal abscess 09/25/[address] 07/23/2022 Overview (07/23/2022): Added automatically from request for surgery [id number] Hypokalemia 06/29/2022 Crohn's disease of intestine, unspecified [...] evaluation. Assessment & Plan (07/26/2024 2:38 PM TOOL AND DIE MAKER/DESIGNER): He has severe Crohn's disease of the [...] one. Assessment & Plan (05/06/2023 1:55 PM TOOL AND DIE MAKER/DESIGNER): Normal GI symptoms for a pouch, but [...] weeks. Assessment & Plan (07/22/2022 2:50 PM TOOL AND DIE MAKER/DESIGNER): Initially diagnosed with UC s/p IPAA now [...] -Pouchoscopy Assessment & Plan (07/30/2021 1:56 PM TOOL AND DIE MAKER/DESIGNER): Originally diagnosed with UC but now with [...] today Assessment & Plan (07/23/2022 5:06 PM TOOL AND DIE MAKER/DESIGNER): Discuss prevnar 20 next visit Assessment & Plan (12/10/2021 3:32 PM CDT): 4th covid shot Prevnar/pneumovax when finished with covid series Assessment & Plan (07/30/2021 2:00 PM TOOL AND DIE MAKER/DESIGNER): Next visit: DEXA Check vitamin D HBV surface ab, vaccinate if negative Review pneumococcus vaccines High risk medications (not anticoagulants) long- term use 07/30/2021 Assessment & Plan (07/26/2024 2:22 PM TOOL AND DIE MAKER/DESIGNER): All immunosuppressants increase the risk of infection [...] and in addition should follow with a sheet manufacturing supervisor for skin cancer screening. There is a [...] and in addition should follow with a sheet manufacturing supervisor for skin cancer screening. There is a [...] and in addition should follow with a sheet manufacturing supervisor for skin cancer screening. There is a [...] and in addition should follow with a sheet manufacturing supervisor for skin cancer screening. There is a small risk of lymphoma that we weigh against the risks of uncontrolled IBD. All immunosuppressants increase the risk of infection so we recommend the patient get all available vaccinations, including the pneumococcal vaccine, covid19 and annual influenza vaccine. Assessment & Plan (05/06/2023 1:58 PM TOOL AND DIE MAKER/DESIGNER): All immunosuppressants increase the risk of infection [...] and in addition should follow with a sheet manufacturing supervisor for skin cancer screening. There is a [...] drinking. Assessment & Plan (07/23/2022 5:05 PM TOOL AND DIE MAKER/DESIGNER): Planning to start infliximab and azathioprine when cleared from surgical standpoint. Discussed risk of infection, abnormal LFTs, heart failure. Will monitor thiopurine metabolites, CBC and LFTs to monitor toxicity. Assessment & Plan (12/10/2021 3:24 PM CDT): On Stelara. Monitor q 3 month labs for hepatotoxicity. I recommended a 4th covid shot. Assessment & Plan (07/30/2021 2:01 PM TOOL AND DIE MAKER/DESIGNER): All immunosuppressants carry a theoretical risk of infection, though ustekinumab is among the safest. We recommend the patient get all available vaccinations, including the pneumococcus series, covid19 and annual influenza. Monitor CBC and HFP q 3 months for cytopenias and hepatotoxicity. Pouchitis 07/02/2021 Overview (07/05/2021): Added automatically from request for surgery [id number] CAD (coronary artery disease) 01/30/2017 Assessment & Plan (07/26/2024 2:23 PM TOOL AND DIE MAKER/DESIGNER): Not a good candidate for rinvoq. Assessment [...] How often do you attend chur or jehovah's witness services? Never 10/08/2022 Do you belong to any clubs o r organizations such as protestant groups, unions, fraternal or athletic groups, or [...] place to sleep or slept in a chcf (including now)? No 10/08/2022 Personal Safety Answer Date Recorded Have you ever been in or are you currently in a harmful physical or emotional relationship or is someone making you feel afraid or unsafe? Denies 06/10/2024 Sex and Gender Information Value Date Recorded Sex Assigned at Not on file Legal Sex Male 7:54 PM TOOL AND DIE MAKER/DESIGNER Gender Identity Not on file Sexual Orientation [...] cm (5' 7 ) 08/03/2024 1:43 PM TOOL AND DIE MAKER/DESIGNER Body Mass Index 22.99 08/03/2024 1:43 PM TOOL AND DIE MAKER/DESIGNER Plan of Treatment Not on file Medical Devices Implanted Type Area Culled Fruit Packer Device Identifier Shelf Expiration Date Model / Serial / Lot Bilateral Hip Replacement Hip Micro Tech Endoscopy Clip Hemostasis Lockado 2.6mm 16mm 235cm Repositionable [id number] - [id number] Implanted:Qty: 4 on 06/05/2022 by Chandan Warren MD at [facility] MICRO TECH ENDOSCOPY 06/11/2023 [id number] / / [id number] Procedures Procedure Name Priority Date/Time Associated Diagnosis Comments CBC WITH AUTO DIFFERENTIAL Routine 08/12/2024 1:00 PM TOOL AND DIE MAKER/DESIGNER Crohn's disease of both small and large intestine with intestinal obstruction (HCC) Crohn's disease of intestine, unspecified complication (HCC) COMPREHENSIVE METABOLIC PANEL Routine 08/12/2024 1:00 PM TOOL AND DIE MAKER/DESIGNER Crohn's disease of both small and large intestine with intestinal obstruction (HCC) Crohn's disease of intestine, unspecified complication (HCC) CRP (ACUTE PHASE) Routine 08/12/2024 1:0 0 PM TOOL AND DIE MAKER/DESIGNER Crohn's disease of both small and large intestine with intestinal obstruction (HCC) Crohn's disease of intestine, unspecified complication (HCC) POCT LIPID PANEL Routine 08/03/2024 2:23 PM TOOL AND DIE MAKER/DESIGNER Coronary artery disease involving caddo coronary artery of caddo heart without angina pectoris MRI ABDOMEN/PELVIS ENTEROGRAPHY W WO CONTRAST Schedule Routine, Read Routine (OP Routine) 07/17/2024 11:59 AM TOOL AND DIE MAKER/DESIGNER Crohn's disease of both small and large intestine with intestinal obstruction (HCC) HEPATITIS PANEL, ACUTE Timed 07/07/2021 11:54 AM TOOL AND DIE MAKER/DESIGNER from Last 3 Months or Most Recently Relevant to Health Maintenance Results * (ABNORMAL) CBC with auto differential (08/12/2024 1:00 PM TOOL AND DIE MAKER/DESIGNER) Pathologist [facility] White Blood Count 4.7 3.6 - 11.2 [...] [facility] Blood 08/12/2024 1:00 PM TOOL AND DIE MAKER/DESIGNER 08/12/2024 1:52 PM TOOL AND DIE MAKER/DESIGNER us Daniel Lewis MD LAB BLOOD ORDERABLES Final Result [facility] CORE [facility] * CRP (acute phase) (08/12/2024 1:00 PM TOOL AND DIE MAKER/DESIGNER) C-Reactive Protein, Acute <3.0 <5.0 mg/L [facility] Blood 08/12/2024 1:00 PM TOOL AND DIE MAKER/DESIGNER 08/12/2024 1:52 PM TOOL AND DIE MAKER/DESIGNER Daniel Lewis MD LAB BLOOD ORDERABLES Final Result [facility] * (ABNORMAL) Comprehensive metabolic panel (08/12/2024 1:00 PM TOOL AND DIE MAKER/DESIGNER) Total Protein 7.1 6.1 - 8.4 g/dL [...] [facility] Blood 08/12/2024 1:00 PM TOOL AND DIE MAKER/DESIGNER 08/12/2024 1:52 PM TOOL AND DIE MAKER/DESIGNER Narrative [facility] CORE LAB - 08/12/2024 2:50 PM TOOL AND DIE MAKER/DESIGNER Specimen Hemolyzed us Daniel Lewis MD LAB BLOOD ORDERABLES Final Result [facility] * POCT lipid panel (08/03/2024 2:23 PM TOOL AND DIE MAKER/DESIGNER) Cholesterol, POC 140 mg/dL Comment:GLU = 105 HDL, POC 65 mg/dL Triglycerides, POC 153 mg/dL LDL Cholesterol POC 45 mg/dL Chol/HDL Ratio, POC 0.7 Non-HDL Cholesterol, POC 75 mg/dL Cholesterol Total, POC 140 mg/dL Capillary blood 08/03/2024 2 :23 PM TOOL AND DIE MAKER/DESIGNER Nguyễn Meyer MD POINT OF CARE TEST ORDER PUSHPA Final Result * MRI Abdomen Pelvis Enterography W WO Contrast (07/17/2024 11:59 AM TOOL AND DIE MAKER/DESIGNER) Anatomical Region Laterality Modality Body N/A Magnetic Resonan ce 07/19/2024 10:3 2 AM TOOL AND DIE MAKER/DESIGNER Impressions 07/19/2024 12:07 PM TOOL AND DIE MAKER/DESIGNER Narrowing and inflammation and involving the pre-pouch [...] Jaron Danielle M.D. Narrative 07/19/2024 12:07 PM TOOL AND DIE MAKER/DESIGNER EXAMINATION: 1. MAGNETIC RESONANCE IMAGING OF THE [...] * Hepatitis panel, acute (07/07/2021 11:54 AM TOOL AND DIE MAKER/DESIGNER) Hep A IgM Nonreactive Nonreactive [facility] Comment: Interpretive Data: If Hep A IgM Ab is reported as Equivocal, a new sample should be drawn in two weeks for testing. Current interpretive data was last revised on 19. Hep B core IgM Nonreactive Nonreactive [facility] Comment: Interpretive Data If HepB Core IgM Ab is reported as Equivocal, a new sample should be drawn in two weeks for testing. Current interpretive data was last revised on 19. Hep C Ab Nonreactive Nonreactive [facility] Comment:Antibodies to HCV no t detected. Does NOT exclude the possibility of recent exposure to HCV. HepBsAg Nonreactive Nonreactive [facility] Blood 07/07/2021 11:5 4 AM TOOL AND DIE MAKER/DESIGNER 07/07/2021 12:39 PM TOOL AND DIE MAKER/DESIGNER Fan Lowery MD LAB MICROBIOLOGY - GENE RAL ORDERABLES Edited Result - Final [facility] [place] [address] from Last 3 Months or Most Recently Relevant to Health [place] [address] [employer] MED[employer]ARE GOLD A[employer] MEDICARE GOLD [employer] [place] [address] [employer] MED[employer]ARE GOLD Advance Directives For more information, please contact: [phone] * Full Code (Latest Code Status on [...] 2:03 PM 09/12/2022 8:55 PM Care Teams Line Runner Relationship Specialty Start Date End Date Nguyễn Sampson MD [address] [place] [address] PCP - General 09/27/16 Fan Lowery MD [id number] [place] [address] Consulting Physician Colon and Rectal Surgery 07/08/21 Chandan Warren MD [phone] [place] [address] Surgeon Colon and Rectal Surgery 07/19/22
--- OUTSIDE RECORDS SUMMARY | 2024-10-13 21:22 | XMS_ITS | Clinical Summary ---
Author Organization [facility] Address [address] [place], [place] [address] Care Team Providers Care Teachers Assistant Name Role Phone Unavailable Primary Care Provider Unavailabl e Social History Tobacco Use Types Packs/Day Years Used Date Smoking Tobacco: Never Assessed Sex and Gender Information Value Date Recorded Sex Assigned at Not on file Legal Sex Male 12:05 PM INTERPRETER DEAF Gender Identity Not on file Sexual Orientation [...]
--- OUTSIDE RECORDS SUMMARY | 2024-10-13 21:22 | XMS_ITS | Encounter Summary ---
Author Organization [facility] Address [address] [place] [address] Phone Care Team Providers Care Business Performance Specialist Name Role Phone Nguyễn Sampson MD Primary Care Provide r Fan Lowery MD Unavailable [phone] Raquel Albrecht [facility] Unavailable [phone] Chandan Warren MD Unavailable [phone] Encounter Details Date Type Department Care Team [...] often do you attend chur ch or presybeterian services? 1 to 4 times per year [...] on file Legal Sex Male 7:54 PM PIG HANDLER Gender Identity Not on file Sexual Orientation [...] filedocumented in this encounter Care Teams Business Performance Specialist Relationship Specialty Start Date End Date Nguyễn Sampson MD [address] [place] [address] PCP - General 09/27/16 Fan Lowery MD [id number] [place] [address] Consulting Physician Colon and Rectal Surgery 07/08/21 Raquel Albrecht LCSW [address] [facility] ([facility] Mailstop [phone] [place] [address] [facility] Outpatient Auto Body Repairer 05/24/22 05/24/22 Chandan Warren MD [address] [facility] [id number] [place] [address] Surgeon Colon and Rectal Surgery 07/19/22 documented as of this encounter
--- OUTSIDE RECORDS SUMMARY | 2024-10-13 21:22 | XMS_ITS | Clinical Summary ---
Author Organization [facility] [address] Address [address] [place] [address] Care Team Providers Care Material Inspector Name Role Phone Nguyễn Sampson MD Primary Care Provide r Fan Lowery MD Unavailable [phone] Chandan Warren MD Unavailable [phone] Allergies Active Allergy Reactions Criticality Noted Date [...] diarrhea. Assessment & Plan (05/06/2023 1:57 PM EMERGENCY MEDICAL SERVICE COORDINATOR): Neck, hand, hip pain. If IBD related IFX is a good choice. Could consider switching from aza to MTX. Will refer to rheum and do pouchoscopy to assess for active crohn's. Postoperative intra-abdominal abscess 09/25/[address] 07/23/2022 Overview (07/23/2022): Added automatically from request for surgery [id number] Hypokalemia 06/29/2022 Crohn's disease of intestine, unspecified [...] evaluation. Assessment & Plan (07/26/2024 2:38 PM EMERGENCY MEDICAL SERVICE COORDINATOR): He has severe Crohn's disease of the [...] one. Assessment & Plan (05/06/2023 1:55 PM EMERGENCY MEDICAL SERVICE COORDINATOR): Normal GI symptoms for a pouch, but [...] weeks. Assessment & Plan (07/22/2022 2:50 PM EMERGENCY MEDICAL SERVICE COORDINATOR): Initially diagnosed with UC s/p IPAA now [...] -Pouchoscopy Assessment & Plan (07/30/2021 1:56 PM EMERGENCY MEDICAL SERVICE COORDINATOR): Originally diagnosed with UC but now with [...] today Assessment & Plan (07/23/2022 5:06 PM EMERGENCY MEDICAL SERVICE COORDINATOR): Discuss prevnar 20 next visit Assessment & Plan (12/10/2021 3:32 PM CDT): 4th covid shot Prevnar/pneumovax when finished with covid series Assessment & Plan (07/30/2021 2:00 PM EMERGENCY MEDICAL SERVICE COORDINATOR): Next visit: DEXA Check vitamin D HBV surface ab, vaccinate if negative Review pneumococcus vaccines High risk medications (not anticoagulants) long- term use 07/30/2021 Assessment & Plan (07/26/2024 2:22 PM EMERGENCY MEDICAL SERVICE COORDINATOR): All immunosuppressants increase the risk of infection [...] and in addition should follow with a rn field for skin cancer screening. There is a [...] and in addition should follow with a rn field for skin cancer screening. There is a [...] and in addition should follow with a rn field for skin cancer screening. There is a [...] and in addition should follow with a rn field for skin cancer screening. There is a small risk of lymphoma that we weigh against the risks of uncontrolled IBD. All immunosuppressants increase the risk of infection so we recommend the patient get all available vaccinations, including the pneumococcal vaccine, covid19 and annual influenza vaccine. Assessment & Plan (05/06/2023 1:58 PM EMERGENCY MEDICAL SERVICE COORDINATOR): All immunosuppressants increase the risk of infection [...] and in addition should follow with a rn field for skin cancer screening. There is a [...] drinking. Assessment & Plan (07/23/2022 5:05 PM EMERGENCY MEDICAL SERVICE COORDINATOR): Planning to start infliximab and azathioprine when cleared from surgical standpoint. Discussed risk of infection, abnormal LFTs, heart failure. Will monitor thiopurine metabolites, CBC and LFTs to monitor toxicity. Assessment & Plan (12/10/2021 3:24 PM CDT): On Stelara. Monitor q 3 month labs for hepatotoxicity. I recommended a 4th covid shot. Assessment & Plan (07/30/2021 2:01 PM EMERGENCY MEDICAL SERVICE COORDINATOR): All immunosuppressants carry a theoretical risk of infection, though ustekinumab is among the safest. We recommend the patient get all available vaccinations, including the pneumococcus series, covid19 and annual influenza. Monitor CBC and HFP q 3 months for cytopenias and hepatotoxicity. Pouchitis 07/02/2021 Overview (07/05/2021): Added automatically from request for surgery [id number] CAD (coronary artery disease) 01/30/2017 Assessment & Plan (07/26/2024 2:23 PM EMERGENCY MEDICAL SERVICE COORDINATOR): Not a good candidate for rinvoq. Assessment [...] Team Description 10/07/2024 9:30 AM CDT Infusion [facility] Infusion Therapy [address] [place] [address] 5th [place] [address] [place] [address] Crohn's disease of both small and large intestine with intestinal obstruction (HCC) (Primary Dx); Crohn's disease of intestine, unspecified complication (HCC) 09/09/2024 9:30 AM CDT Infusion [facility] Infusion Therapy [address] [place] [address] 5th [place] [address] [place] [address] Crohn's disease of both small and large intestine with intestinal obstruction (HCC) (Primary Dx); Crohn's disease of intestine, unspecified complication (HCC) 08/12/2024 1:15 PM EMERGENCY MEDICAL SERVICE COORDINATOR Lab [facility] Endocrinology Metabolism and Lipid [address] [place] [address] [place] [address] [place] [address] Crohn's disease of both small and large intestine with intestinal obstruction (HCC) [K50.812] (Primary Dx); Crohn's disease of intestine, unspecified complication (HCC) [K50.919] 08/12/2024 12:45 PM EMERGENCY MEDICAL SERVICE COORDINATOR Infusion [facility] Infusion Therapy [address] [place] [address] 5th [place] [address] [place] [address] Crohn's disease of both small and large intestine with intestinal obstruction (HCC) (Primary Dx); Crohn's disease of intestine, unspecified complication (HCC) 08/03/2024 1:45 PM EMERGENCY MEDICAL SERVICE COORDINATOR Office Visit [facility] Cardiology [address] [place] [address] Nguyễn Meyer MD Coronary artery disease involving mille lacs coronary artery of mille lacs heart without angina pectoris (Primary Dx); S/P coronary artery stent placement 07/28/2024 Documentation Gastroententerology Yesenia Cai BS 07/26/2024 11:45 AM EMERGENCY MEDICAL SERVICE COORDINATOR Office Visit [facility] Gastroenterology [address] [place] [address] 12th [place] [address] [place] [address] Daniel Lewis MD High risk medications (not anticoagulants) long-term use (Primary Dx); Coronary artery disease involving mille lacs coronary artery of mille lacs heart without angina pectoris; Crohn's disease of both small and large intestine with intestinal obstruction (HCC) 07/17/2024 8:48 AM EMERGENCY MEDICAL SERVICE COORDINATOR - 07/17/2024 11:59 PM EMERGENCY MEDICAL SERVICE COORDINATOR Hospital Encounter [facility] [address] [place] [address] Crohn's disease of both small and large [...] Osteoarthritis Osteoarthritis Shoulder pain R. shoulder pain OK (myocardial infarction) (HCC) 2010 h/o OK and Vfib cardiac arrest 2010 requiring multiple shocks for rescucitation CHF (congestive heart failure) (HCC) Crohn's disease (HCC) Ulcerative colitis dxd 2001 with Crohn's diagnosed subsequently History of ventricular fibrillation h/o OK and Vfib cardiac arrest 2010 requiring multiple shocks for rescucitation Hyperlipidemia Treated with sta tin Anemia GERD (gastroesophageal reflu x disease) Well controlled with daily P PI SBO (small bowel obstruction) ([facility]) 09/17/2022 Hypertension Anxiety Family History Medical History [...] often do you attend chur ch or episcopalian services? Never 10/08/2022 Do you belong to any clubs o r organizations such as confucianism groups, unions, fraternal or athletic groups, or [...] place to sleep or slept in a care home (including now)? No 10/08/2022 Personal Safety Answer Date Recorded Have you ever been in or are you currently in a harmful physical or emotional relationship or is someone making you feel afraid or unsafe? Denies 06/10/2024 Sex and Gender Information Value Date Recorded Sex Assigned at Not on file Legal Sex Male 7:54 PM EMERGENCY MEDICAL SERVICE COORDINATOR Gender Identity Not on file Sexual Orientation [...] cm (5' 7 ) 08/03/2024 1:43 PM EMERGENCY MEDICAL SERVICE COORDINATOR Body Mass Index 22.99 08/03/2024 1:43 PM EMERGENCY MEDICAL SERVICE COORDINATOR Plan of Treatment Health Maintenance Due Date [...] Completed 10/21/2022 Medical Devices Implanted Type Area Games Dealer Device Identifier Shelf Expiration Date Model / Serial / Lot Bilateral Hip Replacement Hip Micro Tech Endoscopy Clip Hemostasis Lockado 2.6mm 16mm 235cm Repositionable [id number] - [id number] Implanted:Qty: 4 on 06/05/2022 by Chandan Warren MD at [facility] MICRO TECH ENDOSCOPY 06/11/2023 [id number] / / [id number] Procedures Procedure Name Priority Date/Time Associated Diagnosis Comments CBC WITH AUTO DIFFERENTIAL Routine 08/12/2024 1:00 PM EMERGENCY MEDICAL SERVICE COORDINATOR Crohn's disease of both small and large intestine with intestinal obstruction (HCC) Crohn's disease of intestine, unspecified complication (HCC) COMPREHENSIVE METABOLIC PANEL Routine 08/12/2024 1:00 PM EMERGENCY MEDICAL SERVICE COORDINATOR Crohn's disease of both small and large intestine with intestinal obstruction (HCC) Crohn's disease of intestine, unspecified complication (HCC) CRP (ACUTE PHASE) Routine 08/12/2024 1:0 0 PM EMERGENCY MEDICAL SERVICE COORDINATOR Crohn's disease of both small and large intestine with intestinal obstruction (HCC) Crohn's disease of intestine, unspecified complication (HCC) POCT LIPID PANEL Routine 08/03/2024 2:23 PM EMERGENCY MEDICAL SERVICE COORDINATOR Coronary artery disease involving mille lacs coronary artery of mille lacs heart without angina pectoris MRI ABDOMEN/PELVIS ENTEROGRAPHY W WO CONTRAST Schedule Routine, Read Routine (OP Routine) 07/17/2024 11:59 AM EMERGENCY MEDICAL SERVICE COORDINATOR Crohn's disease of both small and large intestine with intestinal obstruction (HCC) HEPATITIS PANEL, ACUTE Timed 07/07/2021 11:54 AM EMERGENCY MEDICAL SERVICE COORDINATOR from Last 3 Months or Most Recently Relevant to Health Maintenance Results * (ABNORMAL) CBC with auto differential (08/12/2024 1:00 PM EMERGENCY MEDICAL SERVICE COORDINATOR) White Blood Count 4.7 3.6 - 11.2 [...] [facility] Blood 08/12/2024 1:00 PM EMERGENCY MEDICAL SERVICE COORDINATOR 08/12/2024 1:52 PM EMERGENCY MEDICAL SERVICE COORDINATOR Daniel Lewis MD LAB BLOOD ORDERABLES Final Result Performing Organization Address [facility] Co de Phone Number [facility] * CRP (acute phase) (08/12/2024 1:00 PM EMERGENCY MEDICAL SERVICE COORDINATOR) Pathologist [facility] C-Reactive Protein, Acute <3.0 <5.0 mg/L [facility] Blood 08/12/2024 1:00 PM EMERGENCY MEDICAL SERVICE COORDINATOR 08/12/2024 1:52 PM EMERGENCY MEDICAL SERVICE COORDINATOR aDniel Lewis MD LAB BLOOD ORDERABLES Final Result Performing Organization Address [facility] de Phone Number [facility] * (ABNORMAL) Comprehensive metabolic panel (08/12/2024 1:00 PM EMERGENCY MEDICAL SERVICE COORDINATOR) Pathologist [facility] Total Protein 7.1 6.1 - 8.4 g/dL [...] [facility] Blood 08/12/2024 1:00 PM EMERGENCY MEDICAL SERVICE COORDINATOR 08/12/2024 1:52 PM EMERGENCY MEDICAL SERVICE COORDINATOR Narrative [facility] - 08/12/2024 2:50 PM EMERGENCY MEDICAL SERVICE COORDINATOR Specimen Hemolyzed us Daniel Lewis MD LAB BLOOD ORDERABLES Final Result [facility] * POCT lipid panel (08/03/2024 2:23 PM EMERGENCY MEDICAL SERVICE COORDINATOR) Cholesterol, POC 140 mg/dL Comment:GLU = 105 HDL, POC 65 mg/dL Triglycerides, POC 153 mg/dL LDL Cholesterol POC 45 mg/dL Chol/HDL Ratio, POC 0.7 Non-HDL Cholesterol, POC 75 mg/dL Cholesterol Total, POC 140 mg/dL Capillary blood 08/03/2024 2 :23 PM EMERGENCY MEDICAL SERVICE COORDINATOR us Nguyễn Meyer MD POINT OF CARE TEST ORDER PUSHPA Final Result * MRI Abdomen Pelvis Enterography W WO Contrast (07/17/2024 11:59 AM EMERGENCY MEDICAL SERVICE COORDINATOR) Anatomical Region Laterality Modality Body N/A Magnetic Resonan ce 07/19/2024 10:3 2 AM EMERGENCY MEDICAL SERVICE COORDINATOR Impressions 07/19/2024 12:07 PM EMERGENCY MEDICAL SERVICE COORDINATOR Narrowing and inflammation and involving the pre-pouch [...] Jaron Danielle M.D. Narrative 07/19/2024 12:07 PM EMERGENCY MEDICAL SERVICE COORDINATOR EXAMINATION: 1. MAGNETIC RESONANCE IMAGING OF THE [...] * Hepatitis panel, acute (07/07/2021 11:54 AM EMERGENCY MEDICAL SERVICE COORDINATOR) Hep A IgM Nonreactive Nonreactive [facility] Comment: Interpretive Data: If Hep A IgM Ab is reported as Equivocal, a new sample should be drawn in two weeks for testing. Current interpretive data was last revised on 19. Hep B core IgM Nonreactive Nonreactive [facility] Comment: Interpretive Data If HepB Core IgM Ab is reported as Equivocal, a new sample should be drawn in two weeks for testing. Current interpretive data was last revised on 19. Hep C Ab Nonreactive Nonreactive [facility] Comment:Antibodies to HCV no t detected. Does NOT exclude the possibility of recent exposure to HCV. HepBsAg Nonreactive Nonreactive [facility] Blood 07/07/2021 11:5 4 AM EMERGENCY MEDICAL SERVICE COORDINATOR 07/07/2021 12:39 PM EMERGENCY MEDICAL SERVICE COORDINATOR Fan Lowery MD LAB MICROBIOLOGY - GENE RAL ORDERABLES Edited Result - Final [facility] [place] [address] from Last 3 Months or Most Recently Relevant to Health [place] [address] [place] [address] AET MEDICARE [place] [address] T MEDICARE GOLD Advance Directives For more information, please contact: [phone] * Full Code (Latest Code Status on [...] 2:03 PM 09/12/2022 8:55 PM Care Teams Material Inspector Relationship Specialty Start Date End Date Nguyễn Sampson MD [address] [place] [id number] PCP - General 09/27/16 Fan Lowery MD [phone] [place] [address] Consulting Physician Colon and Rectal Surgery 07/08/21 Chandan Warren MD [id number] [place] [address] Surgeon Colon and Rectal Surgery 07/19/22
[2024-10-13 21:36] VITALS: BP 102/60; PULSE 62; RESP 12; O2SAT 99
== END 2024-10-13 21:50 | disposition home or self-care (01) ==
LOC: ANHED 21:20
PROVIDERS: Emergency Provider Emergency Medicine; PCP Emergency Medicine
DX: F10.120 Alcohol abuse with intoxication, uncomplicated (principal); Y90.7 Blood alcohol level of 200-239 mg/100 ml; I25.10 Atherosclerotic heart disease of native coronary artery without angina pectoris; F32.A Depression, unspecified; K21.9 Gastro-esophageal reflux disease without esophagitis; I10 Essential (primary) hypertension; E78.5 Hyperlipidemia, unspecified
CPT/HCPCS: 36415; 70450; 80053; 82077; 85025; 99284